=== PATIENT | female | born 1955 | race Caucasian/White ===

== ENCOUNTER 2017-11-22 05:52 | Inpatient (IN) | payer OTHER ==
[2017-11-22] VITALS (10 sets, daily range): BP systolic 11–157; BP diastolic 56–76
[~2017-11-22] VITALS: Ht 160 cm; Wt 45.4 kg
[~2017-11-22 05:52] MED LIST: ATIVAN1 MG PO; ZOFRAN ODT4 MG PO
--- NOTE | 2017-11-22 06:03 | ED GI/GU/ABDOMINAL COMPLAINT ---
See Addendum History of Present Illness General Chief Complaint: General Adult Stated Complaint: "BIBA PER EMS ANXIETY" Source: patient, old records, EMS Exam Limitations: no limitations Vital Signs & Intake/Output Vital Signs & Intake/Output Vital Signs Date Time Temp Pulse Resp B/P B/P Pulse O2 O2 Flow FiO2 Mean Ox Delivery Rate 11/22 0638 97 Room Air 11/22 0603 98.1 110 20 147/76 96 Room Air Allergies Coded Allergies: NO KNOWN ALLERGIES (06/23/14) Reconcile Medications Lorazepam (Ativan) 1 MG TAB 1 TAB PO Q6H PRN ALCOHOL WITHDRAWAL Ondansetron (Zofran Odt) 4 MG TAB.RAPDIS 1 TAB PO Q6H PRN NAUSEA Triage Nurses Notes Reviewed? yes ? N Is pt currently ? No HPI: Patient presents complaining of a panic attack. Patient states that symptoms started 2 days ago have been worsening. Patient is also having nausea and vomiting and unable to keep anything down. Patient states that she has thrown up her Lexapro over the past 2 days. Patient does drink daily but states that she only has 2 beers per day. Patient states that she has been able to keep them down. Patient states that she does have a history of panic attacks and this feels very similar to prior episodes. Patient does not feel that she is in all were drawn as the patient states that she really does not drink on that much and she has cut back dramatically over the past 2-3 years. Patient denies any chest pain or chest tightness. There is no abdominal pain. There is no diarrhea. There are no fevers or chills. Past History Travel History Traveled to [place] past 21 day No Medical History Any Pertinent Medical History? see below for history Psychiatric: anxiety, depression Surgical History Surgical History: non-contributory Psychosocial History Who do you live with Patient/Self What is your primary language Urdu Tobacco Use: Never used ETOH Use: "2 BEERS PER DAY" Illicit Drug Use: denies illicit drug use Family History Hx Contributory? No Review of Systems Review of Systems Constitutional: Reports: no symptoms. EENTM: Reports: no symptoms. Respiratory: Reports: no symptoms. Cardiovascular: Reports: no symptoms. GI: Reports: see HPI, nausea, vomiting. Genitourinary: Reports: no symptoms. Musculoskeletal: Reports: no symptoms. Skin: Reports: no symptoms. Neurological/Psychological: Reports: see HPI, anxiety. Hematologic/Endocrine: Reports: no symptoms. Immunologic/Allergic: Reports: no symptoms. All Other Systems: Reviewed and Negative Physical Exam Physical Exam General Appearance: well developed/nourished, alert, awake, anxious, moderate distress Head: atraumatic, normal appearance Eyes: Bilateral: PERRL, EOMI. Ears, Nose, Throat, Mouth: hearing grossly normal, DRY MUCUS MEMBRANES Neck: normal inspection, supple, full range of motion Respiratory: normal breath sounds, chest non-tender, no respiratory distress, lungs clear Cardiovascular: regular rate/rhythm, normal peripheral pulses Gastrointestinal: normal bowel sounds, soft, non-tender Back: normal inspection, normal range of motion Extremities: normal range of motion Neurologic/Psych: no motor/sensory deficits, awake Skin: intact, normal color, warm/dry Core Measures ACS in differential dx? No Sepsis Present: No Sepsis Focused Exam Completed? No Progress Differential Diagnosis: AMI, bowel obstruction, gastritis, hepatitis, peptic ulcer, PUD/GERD, ALCOHOL WITHDRAWAL ELECTROLYTE ABNORMALITY Plan of Care: Orders Procedure Date/time Status TROPONIN LEVEL 11/22 0603 Active MAGNESIUM 11/22 0603 Active LIPASE 11/22 0603 Active ETHANOL 11/22 0603 Active COMPREHENSIVE METABOLIC PANEL 11/22 0603 Active CBC WITHOUT DIFFERENTIAL 11/22 0603 Complete AMYLASE 11/22 0603 Active EKG 11/22 0603 Active Current Medications Sig/Dino Start time Last Medication Dose Stop Time Status Admin Sodium Chloride 1,000 ML BOLUS ONE 11/22 0615 AC 11/22 (Normal Saline 0.9%) 11/22 0714 0630 Laboratory Tests 11/22/17 0622: Sodium Pending, Potassium Pending, Chloride Pending, Carbon Dioxide Pending, Anion Gap Pending, BUN Pending, Creatinine Pending, BUN/Creatinine Ratio Pending , Glucose Pending, Calcium Pending, Magnesium Pending, Total Bilirubin Pending, AST Pending, ALT Pending, Alkaline Phosphatase Pending, Troponin I Pending, Total Protein Pending, Albumin Pending, Globulin Pending, Albumin/Globulin Ratio Pending, Amylase Pending, Lipase Pending, CBC w Diff NO MAN DIFF REQ, RBC 4.50, MCV 94.9, MCH 33.2 H, MCHC 35.0, RDW 13.2, MPV 8.6, Gran % 90.5 H, Lymphocytes % 4.2 L, Monocytes % 5.1, Eosinophils % 0.1, Basophils % 0.1, Absolute Granulocytes 9.1 H, Absolute Lymphocytes 0.4 L, Absolute Monocytes 0.5, Absolute Eosinophils 0, Absolute Basophils 0, Serum Alcohol Pending Initial ED EKG: NSR, no ST T wave changes Rhythm Strip: normal sinus rhythm Hand-Off Endorsed To: Jose Roberto Chow MD Endorsed Time: 0700 Pending: labs Departure Departure Disposition: STILL A PATIENT Condition: Stable Clinical Impression Primary Impression: Anxiety Secondary Impressions: Vomiting Referrals: He Keller MD (PCP/Family) Departure Forms: Customer Survey General Discharge Information
[2017-11-22 06:39] LABS: ABSOLUTE BASOPHIL COUNT 0 /CUMM (0.0-0.2); ABSOLUTE EOSINOPHIL COUNT 0 /CUMM (0.0-0.7); ABSOLUTE GRANULOCYTE CT 9.1 /CUMM (1.4-6.5); ABSOLUTE LYMPH COUNT 0.4 /CUMM (1.2-3.4); ABSOLUTE MONOCYTE COUNT 0.5 /CUMM (0.10-0.60); BASOPHIL % 0.1 % (0.0-2.0); EOSINOPHIL % 0.1 % (0-5); HEMATOCRIT 42.7 % (37-47); MEAN CORPUSCULAR HGB 33.2 PG (27.0-31.0); MEAN CORPUSCULAR VOLUME 94.9 FL (81.0-99.0); MEAN PLATELET VOLUME 8.6 FL (7.4-10.4); RBC DISTRIBUTION WIDTH 13.2 % (11.5-14.5); WHITE BLOOD CELL COUNT 10.1 /CUMM (4.8-10.8)
[2017-11-22 06:53] LABS: GRANULOCYTE % 90.5 % (42.2-75.2); PLATELET COUNT 157 /CUMM (130-400)
--- NOTE | 2017-11-22 17:47 | History & Physical ---
Sterling HAMLIN,[facility] 11/22/17 1239: General Information and HPI MD Statement: I have seen and personally examined JOSSELINE HILARIO and documented this H&P. The patient is a 62 year old F who presented with a patient stated chief complaint of [ALCOHOL DETOX]. Source of Information: patient Exam Limitations: no limitations History of Present Illness: Patient is 62-year-old female with past medical history of alcohol abuse disorder, anxiety, depression and hypertension. The patient presented to [place] ED earlier during the morning thinking that she is having a panic attack The patient reports drinking 6 beers per day. She also reported using whiskey gin and tonic. Last drink was early in the morning today. She consumed gin and tonic. She does not give any history of withdrawal seizures or delirium tremors ICU admission requiring Ativan drip. Patient started drinking in her early 20s. Her last admission was at [facility] where she was discharged to be care a couple of years ago. The patient lives by herself and states that she drinks because she doesn't like being lonely. Her marriage ended 6 years ago. Review of system is otherwise negative for fever or chills, shortness of breath chest pain palpitations abdominal pain or urinary symptoms. Allergies/Medications Allergies: Coded Allergies: NO KNOWN ALLERGIES (06/23/14) Home Med list Amlodipine Besylate (Norvasc) 5 MG TABLET 1 TAB PO DAILY BP (Reported) Escitalopram Oxalate (Lexapro) 20 MG TABLET 1.5 TAB PO DAILY MENTAL HEALTH ( Reported) Lorazepam (Ativan) 0.5 MG TABLET 1 TAB PO BID Detox take one pill at night and one in morning Multivitamin (One Daily Multivitamin) 1 EACH TABLET 1 TAB PO DAILY supplement . Past History Travel History Traveled to [place] past 21 day No Medical History Cardiovascular: hypertension Psychiatric: alcohol dependence, anxiety, depression Surgical History Surgical History: non-contributory Past Family/Social History Family History Relations & Conditions if any MOTHER (DM HTN). Psychosocial History Where do you live? Home Who Do You Live With? self Services at Home: None Primary Language: French Smoking Status: Current Everyday Smoker ETOH Use: alcoholic Illicit Drug Use: denies illicit drug use Functional Ability ADLs Independent: dressing, eating, toileting, bathing. Ambulation: independent IADLs Independent: shopping, housework, finances, food prep, telephone, transportation , medication admin. Review of Systems Review of Systems Constitutional: Reports: see HPI. Exam & Diagnostic Data Last 24 Hrs of Vital Signs/I&O Vital Signs Date Time Temp Pulse Resp B/P B/P Pulse O2 O2 Flow FiO2 Mean Ox Delivery Rate 11/22 1758 97.9 101 18 124/64 96 Room Air 11/22 1757 97.9 101 18 124/64 11/22 1745 98.2 100 18 127/66 95 Room Air 11/22 1541 98.4 88 18 111/72 97 Room Air 11/22 1540 98.4 88 18 11/72 11/22 1415 97.1 88 16 103/56 11/22 1215 98.2 95 20 128/63 11/22 1215 98.2 95 20 128/63 97 Room Air 11/22 1051 97 20 121/61 96 Room Air 11/22 1016 98.2 94 16 113/61 11/22 0802 99.0 124 20 157/72 11/22 0802 99.0 124 20 157/72 95 Room Air 11/22 0638 97 Room Air 11/22 0610 98.1 110 20 147/76 11/22 0603 98.1 110 20 147/76 96 Room Air Intake & Output 11/22 1600 11/22 0800 11/22 0000 Intake Total 0 Output Total Balance 0 Intake, Oral 0 Patient 99 lb 15.99 oz Weight Weight Reported by Patient Measurement Method Physical Exam General Appearance Alert, Oriented X3, Cooperative Skin JAUNDICED Neck Supple Cardiovascular Normal S1, Normal S2, No Murmurs, TACHYCARDIC Lungs Clear to Auscultation, Normal Air Movement Abdomen Normal Bowel Sounds, Soft, No Tenderness, No Hepatospenomegaly, CONSTANTINO SIGN NEGATIVE Neurological Normal Speech, NO NYSTAGMUS, TREMORULOUS Extremities No Edema Last 24 Hrs of Labs/Efrain: Laboratory Tests 11/22/17 1837: Urine Opiates Screen Pending, Methadone Screen Pending, Barbiturate Screen Pending, Ur Phencyclidine Scrn Pending, Amphetamines Screen Pending, U Benzodiazepines Scrn Pending, Urine Cocaine Screen Pending, Urine Cannabis Screen Pending 11/22/17 1833: Potassium Pending, Magnesium Pending 11/22/17 0622: Anion Gap 27 H, Estimated GFR > 60, BUN/Creatinine Ratio 5.0 L, Glucose 173 H , Calcium 9.9, Magnesium 0.8 *L, Total Bilirubin 3.1 H, AST 277 H, ALT 89 H, Alkaline Phosphatase 144 H, Troponin I < 0.01, Total Protein 8.8 H, Albumin 5.2 H, Globulin 3.6, Albumin/Globulin Ratio 1.4, Amylase 65, Lipase 102, CBC w Diff NO MAN DIFF REQ, RBC 4.50, MCV 94.9, MCH 33.2 H, MCHC 35.0, RDW 13.2, MPV 8.6, Gran % 90.5 H, Lymphocytes % 4.2 L, Monocytes % 5.1, Eosinophils % 0.1, Basophils % 0.1, Absolute Granulocytes 9.1 H, Absolute Lymphocytes 0.4 L, Absolute Monocytes 0.5, Absolute Eosinophils 0, Absolute Basophils 0, Serum Alcohol < 10.0 Assessment/Plan Assessment: This 62-year-old female with past medical history of alcohol withdrawal, depression, anxiety and hypertension She is admitted to [facility] alcohol detoxification She is currently maintained managed for following problems #Alcohol withdrawal -CIWA -IV ativan PRN -po ativan 2mg q6 -Multivitamin, folic acid, thiamine -Monitor for delirium tremens and alcohol withdrawal seizures -Psych consult Social work consult #Electrolyte abnormalities patient presented with hypokalemia and hypomagnesemia likely secondary to alcohol abuse -Monitor and replete -Repeat values of potassium 3.8 and magnesium 1.7 #Transaminitis Likely secondary to alcohol abuse Continue to monitor We will check hepatitis panel Worsening or any symptoms and we will consider right upper quadrant ultrasound #chronic medical conditions history of depression and anxiety and hypertension continue amlodipine and Lexapro #Regular diet/DVT prophylaxis with Lovenox/full code As Ranked By This Provider Problem List: 1. Alcohol withdrawal Core Measures/Misc (04/22) Acute Coronary Syndrome ACS Diagnosis: No Congestive Heart Failure Congestive Heart Failure Diagnosis No Cerebrovascular Accident CVA/TIA Diagnosis: No VTE (View Protocol) VTE Risk Factors Age>40 No Mechanical VTE Prophylaxis d/t N/A MechProphylax Ordered No VTE Pharm Prophylaxis d/t NA PharmProphylax ordered Sepsis (View protocol) Sepsis Present: No Leon HAMLIN,Luis 11/22/17 2859: Resident Review Statement Resident Statement: examined this patient, discussed with rn international, agreed with rn international Other Findings: 62 yo lady presents with pmhx of anxiety/depression,PTSD, presents to [facility] requesting [facility] detox. Last drink was last night. Normally drinks about 6 cans of beer on a daily basis. Associated symptoms include vomiting (non bloody) and weakness. Denies any SI/HI,no hx of withdrawal seizure. Pt endorses only one previous detox episode requring hospitalization at [facility] (does not remember when). She does have [facility] record on ER visit for etoh withdawal about 4 years ago, which did not resuilt in admission. Patient endorses life stressors including a very difficult divorce 6 yrs ago that gave her PTSD. Pt has 3 children, a son who is in [place] and 2 daughters in [place] who are in medical field (one is a PA, other is a DIRT BIKE RACER). I spoke to daughter Francisca (the PA) who collaborated patient account that prior to this admission, she has been admitted only once at [facility]. Daughter reports that the patient did very well with etoh abstinence after undergoing outpatient program that was referred to her after the [facility] admission. Daughter also does not remember exactly when that hospitalization happened, she states "a few years ago", neither does she remeber for how long patient remained abstinence before relapsing. Impression * Hypokalemia * Etoh withdrawal * Hypomagnesemia * Transaminitis * Hx of chronic diseases: depression/anxeity, HTN Plan Admit to [facility] Recheck BEP s/p potassium replenishment Continue CIWA protocol and prn ativan Lorazepam 2 mg q6h Thiamine/mvt/folate slow mag bid Omeprazole qd Hepatitits Panel Will trend LFTs and obtain fractionated bili. 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 She has a h/o PTSD since her divorce ( left her) about 6 yrs ago. On ER arrival, patient was nauseous, dry heaving and tremulous. She then requested for alcohol detox. Patient started drinking as a teenager, drinks about 6 beers a day, last drink was on the morning of admission. She drinks to help with her anxiety and PTSD. She lives alone. She denies h/o withdrawal seizures. Denies SI or HI. Her last detox was at [facility] a few years ago, followed by rehab at [facility]. She currently feels well after receiving ativan and zofran. She actually wants to eat at this point. She had not eaten anything for past two days as she was not able to keep anything down. No abdominal pain. She denies chest pain, dyspnea, palpitations, lightheadedness, diarrhea or urinary symptoms. Vitals stable except for tachycardia. Exam unremarkable except for dry mucosa and tremors. Labs: no leukocytosis, K 2.7 --> 3.8, AG 27, glucose 173, Ca 9.9, Mag 0.8 --> 1.7, T. Bili 3.1, AST 277, ALT 89, trop neg. Lipase normal. Urine tox neg. Alcohol <10. EKG: being read as Afib, however appears sinus rhythm with an abnormal baseline artifact due to patient being tremulous. NSR @ 95, LVH, Qtc 488. Assessment and plan: 1. Alcohol withdrawal 2. Hypomagnesemia - improving 3. Hypokalemia - improving 4. Transaminitis 2/2 alcohol use 5. Essential hypertension 6. Anxiety, PTSD - Admit to general medicine - [facility] protocol - IV ativan per [facility], PO ativan 2 mg Q6 - Banana bag then change to MVI, folic acid and thiamine PO - Replete electrolytes - Add omeprazole - Trend LFTs, check hepatitis panel - If LFT's trending up, will check RUQ ultrasound. - Continue amlodipine for hypertension - Psych consult to help manage anxiety, PTSD - Continue lexapro - Social work consult patient did well in rehab the last time - Smoking cessation counseling, nicotine patch DVT ppx Lovenox. Full code.
[2017-11-22] MEDS ORDERED: LEXAPRO20 M1 PO (18:16)
[2017-11-22] MEDS ORDERED: NORVASC5 M1 PO (18:16)
--- NOTE | 2017-11-22 19:18 | Admission Certification ---
Admission Certification Certification Statement - As attending physician, I certify that at the time of - admission, based on clinical presentation, severity of - symptoms, need for further diagnostic testing and - therapeutic interventions, and risk of adverse outcomes - without in-hospital treatment, in my clinical assessment, - this patient requires an acute hospital stay for a minimum - of two nights or longer. I have also considered psychsocial - factors such as support system, advanced age, financial - issues, cognitive issues, and failed out-patient treatments, - past re-admission history, safety of patient, and lack of - compliance as applicable. Specific rationale supporting this admission is: Alcohol withdrawal, hypomagnesemia, hypokalemia.
[2017-11-23] VITALS (12 sets, daily range): BP systolic 104–140; BP diastolic 60–90
--- NOTE | 2017-11-23 07:53 | PN- Housestaff ---
Sterling HAMLIN,Windy 11/23/17 0752: Subjective Follow-up For: Alcohol detoxification Subjective: Patient seen and examined. Resting comfortably. Offers no complaints. Continue to be tremulous. CIWA 3, 2, 2,9,2,4,10,3 on Ativan 2 mg every 6h and received 1 mg IV PRN Review of Systems Constitutional: Reports: see HPI. Objective Last 24 Hrs of Vital Signs/I&O Vital Signs Date Time Temp Pulse Resp B/P B/P Pulse O2 O2 Flow FiO2 Mean Ox Delivery Rate 11/23 1200 98.8 90 20 104/76 11/23 1143 98.0 88 20 130/60 97 Room Air 11/23 1041 98.8 90 20 104/76 11/23 0644 98.8 90 20 104/76 96 Room Air 11/23 0041 98.1 87 20 110/72 99 Room Air 11/22 2032 99.2 82 20 124/76 98 11/22 2000 99.2 82 20 124/76 11/22 1923 98.2 90 18 117/69 11/22 1921 98.2 90 18 117/69 97 Room Air 11/22 1758 97.9 101 18 124/64 96 Room Air 11/22 1757 97.9 101 18 124/64 11/22 1745 98.2 100 18 127/66 95 Room Air 11/22 1541 98.4 88 18 111/72 97 Room Air 11/22 1540 98.4 88 18 11/72 11/22 1415 97.1 88 16 103/56 Intake & Output 11/23 1600 11/23 0800 11/23 0000 Intake Total 800 Output Total 200 Balance -200 800 Intake, IV 800 Number 1 Bowel Movements Output, Urine 200 Patient 99 lb 15.99 oz Weight Weight Reported by Patient Measurement Method Physical Exam General Appearance: Alert, Oriented X3, Cooperative Skin: eyes jaundiced Lungs: Clear to Auscultation Abdomen: Normal Bowel Sounds, Soft Neurological: Normal Speech, tremors Current Medications: Current Medications Sig/Dino Start time Last Medication Dose Route Stop Time Status Admin Amlodipine Besylate 5 MG DAILY 11/23 0900 AC 11/23 PO 1041 Cyanocobalamin/ 1 BAG ONCE ONE 11/22 1930 DC 11/22 Thiamine/Pyridoxine IV 11/23 0329 2308 Dextrose/Water 1,000 ML Enoxaparin Sodium 40 MG DAILY 11/23 0900 AC 11/23 SC 1041 Escitalopram Oxalate 30 MG DAILY 11/23 0900 AC 11/23 PO 1041 Folic Acid 0 .STK-MED ONE 11/22 1819 DC PO Folic Acid 1 MG DAILY 11/22 1754 AC 11/23 PO 1042 Influenza Virus 0.5 ML ONCE ONE 11/22 2315 DC 11/22 Vaccine IM 11/22 2316 2327 Lorazepam 2 MG Q6 11/22 2359 AC 11/23 PO 1133 Lorazepam 0 Q1P PRN 11/22 1930 AC 11/23 IV 1306 Lorazepam 0 .STK-MED ONE 11/22 181 DC PO Lorazepam 0 .STK-MED ONE 11/22 1808 DC .ROUTE Lorazepam 2 MG Q4 11/22 1800 DC 11/22 PO 1825 Lorazepam 0 Q1P PRN 11/22 1800 DC IV Lorazepam 1 MG Q2 PRN 11/22 0915 DC 11/22 IV 1807 Lorazepam 2 MG Q2 PRN 11/22 0915 DC 11/22 IV 1237 Magnesium Chloride 64 MG BID 11/22 2100 AC PO Multivitamins 0 .STK-MED ONE 11/22 1819 DC PO Multivitamins 1 TAB DAILY 11/22 1753 AC 11/23 PO 1041 Omeprazole 40 MG DAILY AC 11/23 0700 AC 11/23 PO 0550 Ondansetron HCl 4 MG Q6P PRN 11/22 1800 AC IV Potassium Chloride 0 .STK-MED ONE 11/22 1755 DC IV Potassium Chloride 10 MEQ ONCE ONE 11/22 1730 DC 11/22 IV 11/22 173 1757 Thiamine HCl 0 .STK-MED ONE 11/22 1819 DC PO Thiamine HCl 100 MG DAILY 11/22 1753 AC 11/23 PO 1041 Last 24 Hrs of Lab/Efrain Results Last 24 Hrs of Labs/Mics: Laboratory Tests 11/22/17 183: Urine Opiates Screen < 100, Methadone Screen < 40, Barbiturate Screen < 60, Ur Phencyclidine Scrn < 6.00, Amphetamines Screen < 100, U Benzodiazepines Scrn < 85, Urine Cocaine Screen < 50, Urine Cannabis Screen < 5.00 11/22/17 183: Magnesium 1.7, Total Bilirubin 2.7 H, Direct Bilirubin 1.5 H, AST 225 H, ALT 77 H, Alkaline Phosphatase 102, Total Protein 6.6, Albumin 3.4 L Assessment/Plan Assessment: This 62-year-old female with past medical history of alcohol withdrawal, depression, anxiety and hypertension She is admitted to [facility] for alcohol detoxification She is currently maintained managed for following problems #Alcohol withdrawal -CIWA -IV ativan PRN -po ativan 2mg q8 today -Multivitamin, folic acid, thiamine -Monitor for delirium tremens and alcohol withdrawal seizures -Psych consult -Social work consult #Electrolyte abnormalities patient presented with hypokalemia and hypomagnesemia likely secondary to alcohol abuse -Monitor and replete #Transaminitis Likely secondary to alcohol abuse -Continue to monitor -We will check hepatitis panel -Worsening or any symptoms and we will consider right upper quadrant ultrasound #chronic medical conditions history of depression and anxiety and hypertension continue amlodipine and Lexapro #Regular diet/DVT prophylaxis with Lovenox/full code Problem List: 1. Alcohol withdrawal Pain Ratin Pain Location: n/a Pain Goal: Pain 4 or less Pain Plan: prn Tomorrow's Labs & Rationales: Popeye Husain MD 11/23/17 1140: Attending MD Review Statement Attending Statement Attending MD Statement: examined this patient, discuss w/resident/PA/RN L AND D, agreed w/resident/PA/RN L AND D, discussed with family, discussed with nursing, discussed with case mgmt Attending Assessment/Plan: 62 yo F smoker, with h/o alcohol dependence, anxiety, depression, HTN, initially presented to the ER for an anxiety attack. She has a h/o PTSD since her divorce ( left her) about 6 yrs ago. On ER arrival, patient was nauseous, dry heaving and tremulous. She is being treated for alcohol detoxification. On examination today, patient is awake, alert and in no distress. Vital signs are stable Patient was last admitted for detox a year ago - she is will to undergo IOP and ready to quit drinking as she clearly understands that this is a problem Assessment and plan: 1. Alcohol withdrawal 2. Hypomagnesemia and hypokalemia - resolving 4. Transaminitis 2/2 alcohol use 5. Essential hypertension 6. Anxiety, PTSD Will decrease and taper PO ativan Will follow up on Hepatitis panel Psych and social work consult Patient was last admitted for detox a year ago - she is will to undergo IOP and ready to quit drinking as she clearly understands that this is a problem
[2017-11-23 15:13] LABS: ABSOLUTE BASOPHIL COUNT 0 /CUMM (0.0-0.2); ABSOLUTE EOSINOPHIL COUNT 0.1 /CUMM (0.0-0.7); ABSOLUTE GRANULOCYTE CT 6.1 /CUMM (1.4-6.5); ABSOLUTE LYMPH COUNT 0.8 /CUMM (1.2-3.4); ABSOLUTE MONOCYTE COUNT 0.6 /CUMM (0.10-0.60); BASOPHIL % 0.1 % (0.0-2.0); EOSINOPHIL % 0.8 % (0-5); GRANULOCYTE % 81.1 % (42.2-75.2); HEMATOCRIT 38.6 % (37-47); MEAN CORPUSCULAR HGB 32.8 PG (27.0-31.0); MEAN CORPUSCULAR HGB CONC 34.6 G/DL (33.0-37.0); MEAN CORPUSCULAR VOLUME 94.6 FL (81.0-99.0); MEAN PLATELET VOLUME 8.5 FL (7.4-10.4); PLATELET COUNT 132 /CUMM (130-400); RBC DISTRIBUTION WIDTH 12.4 % (11.5-14.5); RED BLOOD CELL CT 4.08 /CUMM (4.20-5.40); WHITE BLOOD CELL COUNT 7.6 /CUMM (4.8-10.8)
[2017-11-23] MEDS ORDERED: ONE DAILY MULT1 EAC2 PO (17:03)
--- NOTE | 2017-11-23 17:04 | Patient Discharge Instructions ---
Discharge Instructions General Discharge Information You were seen/treated for: Alcohol detox Special Instructions: Please follow-up with your primary care after discharge Please follow-up with jenna [facility] after Discharge call to make an appointment Diet Continue normal diet: Yes Activity Activity Self Limited: Yes Acute Coronary Syndrome Inclusion Criteria At DC or during hospital stay patient has or had the following: ACS DIAGNOSIS No Discharge Core Measures Meds if any: Prescribed or Continued at Discharge Meds if any: NOT Prescribed or Continued at Discharge Congestive Heart Failure Inclusion Criteria At DC or during hospital stay patient has or had the following: CHF DIAGNOSIS No Discharge Core Measures Meds if any: Prescribed or Continued at Discharge Meds if any: NOT Prescribed or Continued at Discharge Cerebrovascular accident Inclusion Criteria At DC or during hospital stay patient has or had the following: CVA/TIA Diagnosis No Discharge Core Measures Meds if any: Prescribed or Continued at Discharge Meds if any: NOT Prescribed or Continued at Discharge Venous thromboembolism Inclusion Criteria VTE Diagnosis No VTE Type NONE VTE Confirmed by (Test) NONE Discharge Core Measures - Per Current guidelines, there needs to be overlap - treatment for the first 5 days of Warfarin therapy. - If discharged on Warfarin prior to 5 days of - overlap therapy, the patient will need to be - assessed for post discharge needs including - *Post discharge parental anticoagulation - *Warfarin and/or parental anticoagulation education - *Follow up date to check INR post discharge At least 5 days overlap therapy as Inpatient No Meds if any: Prescribed or Continued at Discharge Note: Overlap Therapy is Warfarin and Anticoagulant Meds if any: NOT Prescribed or Continued at Discharge
--- NOTE | 2017-11-23 17:22 | Cons- Psychiatry ---
Psychiatric Consult Date of Consult: 11/23/17 Reason for Consult: "anxiety" History of Present Illness: 62 y.o. , domiciled female [place] from home 11/22/17 @ 0604 with a CC of anxiety attack. She was admitted for alcohol withdrawal, transaminitis, hypokalemia and hypomagnesemia secondary to alcohol abuse and her report of N/V for 2 days. Her last drink was in the fast brim pouncer today [Serum ETOH shows < 10 ] She denies history of seizure, but states that she had delirium tremens in 2011, after her spouse left her. She drinks 6-7 beers daily, and some amount of whiskey. She reports that the amount can vary to as little as two drinks per day. She had been sober for an undetermined amount of time, participating in [facility] trauma, family and women's groups, and attending two AA meetings per week. She does not have a sponsor. She relapsed after an encounter with her ex-'s girlfriend at [facility], hosted by the patient's daughter. The event included an argument. The ex- told her 6 years ago, shortly after their daughter's wedding, that he was leaving, which devastated her. She lives alone, has two daughters who live in [place], and a son in the [employer], who lives at [place], [place]. The patient's PCP, Dr. Raj Salazar follows her for escitalopram 30 mg PO daily FPHx: Her mother had depression, unknown medication. Allergies: Coded Allergies: NO KNOWN ALLERGIES (06/23/14) Current Medications: Current Medications Sig/Dino Start time Last Medication Dose Route Stop Time Status Admin Amlodipine Besylate 5 MG DAILY 11/23 09 AC 11/23 PO 1041 Cyanocobalamin/ 1 BAG ONCE ONE 11/22 1930 DC 11/22 Thiamine/Pyridoxine IV 11/23 4752 2308 Dextrose/Water 1,000 ML Enoxaparin Sodium 40 MG DAILY 11/23 899 AC 11/23 SC 1041 Escitalopram Oxalate 30 MG DAILY 11/23 09 AC 11/23 PO 1041 Folic Acid 0 .STK-MED ONE 11/22 1819 DC PO Folic Acid 1 MG DAILY 11/22 1754 AC 11/23 PO 1042 Influenza Virus 0.5 ML ONCE ONE 11/22 2315 DC 11/22 Vaccine IM 11/22 2316 2327 Lorazepam 2 MG Q8 11/23 2200 AC PO Lorazepam 2 MG Q6 11/22 2359 DC 11/23 PO 1133 Lorazepam 0 Q1P PRN 11/22 1930 AC 11/23 IV 1306 Lorazepam 0 .STK-MED ONE 11/22 1819 DC PO Lorazepam 0 .STK-MED ONE 11/22 1808 DC .ROUTE Lorazepam 2 MG Q4 11/22 1800 DC 11/22 PO 1825 Lorazepam 0 Q1P PRN 11/22 1800 DC IV Lorazepam 1 MG Q2 PRN 11/22 0915 DC 11/22 IV 1807 Lorazepam 2 MG Q2 PRN 11/22 0915 DC 11/22 IV 1237 Magnesium Chloride 64 MG BID 11/22 2100 DC PO Magnesium Sulfate 1 GM ONCE ONE 11/23 1400 AC Dextrose/Water 100 ML IV 11/23 1759 Multivitamins 0 .STK-MED ONE 11/22 1819 DC PO Multivitamins 1 TAB DAILY 11/22 1753 AC 11/23 PO 1041 Omeprazole 40 MG DAILY AC 11/23 0700 AC 11/23 PO 0550 Ondansetron HCl 4 MG Q6P PRN 11/22 1800 AC IV Patient Medication 1 ED ONE ONE 11/23 1715 DC Teaching ED 11/23 1716 Potassium Chloride 40 MEQ ONCE ONE 11/23 1630 DC PO 11/23 1631 Potassium Chloride 40 MEQ ONCE ONE 11/23 1400 DC PO 11/23 1401 Potassium Chloride 0 .STK-MED ONE 11/22 1755 DC IV Potassium Chloride 10 MEQ ONCE ONE 11/22 1730 DC 11/22 IV 11/22 1731 1757 Thiamine HCl 0 .STK-MED ONE 11/22 1819 DC PO Thiamine HCl 100 MG DAILY 11/22 1753 AC 11/23 PO 1041 Past History Past Medical History Neurological: NONE EENT: EAR INFECTION Cardiovascular: hypertension Respiratory: NONE Gastrointestinal: NONE Hepatic: NONE Renal: NONE Musculoskeletal: NONE Psychiatric: alcohol dependence, anxiety, depression, Adjustment disorder Endocrine: NONE Blood Disorders: NONE Cancer(s): NONE IT TECHNICAL SUPPORT SPECIALIST/Reproductive: NONE Past Surgical History Surgical History: non-contributory Psychosocial History Strengths/Capabilities: The patient reports she is motivated for treatment Physical Limitations (Interventions): Unknown Psychiatric Treatment History Psych Treatment Psychiatric Treatment Yes Inpatient Treatment No Diagnosis: Anxiety Disorder NOS Risk Factors: substance abuse, lives alone Substance Use/Abuse History Drug Use/Abuse Substances Used/Abused Yes Substance Used/Abused Alcohol First Use The patient states 10 y.o, then 6 y.o., but other reports state in 20s How much used/taken 6-7 beers, and UNK amt whiskey How often Daily For how long Relapse on November 04, 2017 Substance Abuse Treatment Substance Abuse Treatment Past Substance Abuse TX Yes Inpatient Treatment No Outpatient Treatment Yes Location of Treatment [facility] Reason for Treatment Alcohol use d/o Dates of Treatment UNknown Response to Treatment Pt reports improvement Assessment/Plan Mental Status Orientation: Confused Affect: Constricted, Sad Speech: Increased Latency Neuro-vegetative: Energy Increased, Helpless, Sleep Disturbance Mental Status Exam: Drowsy sitting up in bed, occasional eye contact, oriented to person, place, date, year, repeatedly interprets question about day for date. The month is December or November, day is Sunday. She denies VH, TH and AH, and is confused about when she started drinking, stating 10 y.o, then that she stopped drinking for grade school, then stating that she started drinking at 6 y.o. Asked if she meant 9th grade, she insists on 10 y.o. She reported that she only takes Klonipin, prescribed by Dr. Rothman, whose name she had difficulty recalling. She has no recent record in the [facility] report. Her Lexapro 30 mg PO daily is prescribed by her PCP, Dr. Raj Salazar. She denies SI, HI and denies any history of suicide attempt. She endorses each of hopelessness, helplessness, worthlessness, "sometime." She endorses guilty feelings. She reports she had received treatment at [facility], mostly in groupsm "We had fun. They even had some men there." Scales anxiety as 10/10; 10 is the worst. Depression: "A lot" Denies seizure history Reports she had an ICU alcohol detox in [facility] with an Ativan drip and had DTs. Lab Results: Laboratory Tests 11/23 11/23 11/22 1450 1450 1837 Chemistry Sodium (137 - 145 mmol/L) 134 L Potassium (3.5 - 5.1 mmol/L) 3.1 L Chloride (98 - 107 mmol/L) 92 L Carbon Dioxide (22 - 30 mmol/L) 29 Anion Gap (5 - 16) 14 BUN (7 - 17 mg/dL) 4 L Creatinine (0.5 - 1.0 mg/dL) 0.4 L Estimated GFR (>60 ml/min) > 60 BUN/Creatinine Ratio (7 - 25 %) 10.0 Total Bilirubin (0.2 - 1.3 mg/dL) 3.1 H Direct Bilirubin (< 0.4 mg/dL) 1.8 H AST (14 - 36 U/L) 226 H ALT (9 - 52 U/L) 81 H Alkaline Phosphatase (<127 U/L) 126 Total Protein (6.3 - 8.2 g/dL) 7.3 Albumin (3.5 - 5.0 g/dL) 4.1 Hematology CBC w Diff NO MAN DIFF REQ WBC (4.8 - 10.8 /CUMM) 7.6 RBC (4.20 - 5.40 /CUMM) 4.08 L Hgb (12.0 - 16.0 G/DL) 13.4 Hct (37 - 47 %) 38.6 MCV (81.0 - 99.0 FL) 94.6 MCH (27.0 - 31.0 PG) 32.8 H MCHC (33.0 - 37.0 G/DL) 34.6 RDW (11.5 - 14.5 %) 12.4 Plt Count (130 - 400 /CUMM) 132 MPV (7.4 - 10.4 FL) 8.5 Gran % (42.2 - 75.2 %) 81.1 H Lymphocytes % (20.5 - 51.1 %) 10.5 L Monocytes % (1.7 - 9.3 %) 7.5 Eosinophils % (0 - 5 %) 0.8 Basophils % (0.0 - 2.0 %) 0.1 Absolute Granulocytes (1.4 - 6.5 /CUMM) 6.1 Absolute Lymphocytes (1.2 - 3.4 /CUMM) 0.8 L Absolute Monocytes (0.10 - 0.60 /CUMM) 0.6 Absolute Eosinophils (0.0 - 0.7 /CUMM) 0.1 Absolute Basophils (0.0 - 0.2 /CUMM) 0 Serology Hepatitis A IgM Ab (NONREACTIVE) Cancelled Pending Hep Bs Antigen (NONREACTIVE) Cancelled Pending Hep B Core IgM Ab Conf (NONREACTIVE) Cancelled Pending Hepatitis C Antibody (NONREACTIVE) Cancelled Pending Toxicology Urine Opiates Screen (>2000 NG/ML) < 100 Methadone Screen (>300 NG/ML) < 40 Barbiturate Screen (>200 NG/ML) < 60 Ur Phencyclidine Scrn (>25 NG/ML) < 6.00 Amphetamines Screen (>1000 NG/ML) < 100 U Benzodiazepines Scrn (>200 NG/ML) < 85 Urine Cocaine Screen (>300 NG/ML) < 50 Urine Cannabis Screen (>50 NG/ML) < 5.00 11/22 11/22 1833 0622 Chemistry Sodium (137 - 145 mmol/L) 138 Potassium (3.5 - 5.1 mmol/L) 3.8 2.7 *L Chloride (98 - 107 mmol/L) 88 L Carbon Dioxide (22 - 30 mmol/L) 23 Anion Gap (5 - 16) 27 H BUN (7 - 17 mg/dL) 3 L Creatinine (0.5 - 1.0 mg/dL) 0.6 Estimated GFR (>60 ml/min) > 60 BUN/Creatinine Ratio (7 - 25 %) 5.0 L Glucose (65 - 99 mg/dL) 173 H Calcium (8.4 - 10.2 mg/dL) 9.9 Magnesium (1.6 - 2.3 mg/dL) 1.7 0.8 *L Total Bilirubin (0.2 - 1.3 mg/dL) 2.7 H 3.1 H Direct Bilirubin (< 0.4 mg/dL) 1.5 H AST (14 - 36 U/L) 225 H 277 H ALT (9 - 52 U/L) 77 H 89 H Alkaline Phosphatase (<127 U/L) 102 144 H Troponin I (< 0.11 ng/ml) < 0.01 Total Protein (6.3 - 8.2 g/dL) 6.6 8.8 H Albumin (3.5 - 5.0 g/dL) 3.4 L 5.2 H Globulin (1.9 - 4.2 gm/dL) 3.6 Albumin/Globulin Ratio (1.1 - 2.2 %) 1.4 Amylase (30 - 110 U/L) 65 Lipase (23 - 300 U/L) 102 Hematology CBC w Diff NO MAN DIFF REQ WBC (4.8 - 10.8 /CUMM) 10.1 RBC (4.20 - 5.40 /CUMM) 4.50 Hgb (12.0 - 16.0 G/DL) 15.0 Hct (37 - 47 %) 42.7 MCV (81.0 - 99.0 FL) 94.9 MCH (27.0 - 31.0 PG) 33.2 H MCHC (33.0 - 37.0 G/DL) 35.0 RDW (11.5 - 14.5 %) 13.2 Plt Count (130 - 400 /CUMM) 157 MPV (7.4 - 10.4 FL) 8.6 Gran % (42.2 - 75.2 %) 90.5 H Lymphocytes % (20.5 - 51.1 %) 4.2 L Monocytes % (1.7 - 9.3 %) 5.1 Eosinophils % (0 - 5 %) 0.1 Basophils % (0.0 - 2.0 %) 0.1 Absolute Granulocytes (1.4 - 6.5 /CUMM) 9.1 H Absolute Lymphocytes (1.2 - 3.4 /CUMM) 0.4 L Absolute Monocytes (0.10 - 0.60 /CUMM) 0.5 Absolute Eosinophils (0.0 - 0.7 /CUMM) 0 Absolute Basophils (0.0 - 0.2 /CUMM) 0 Toxicology Serum Alcohol (<10 MG/DL) < 10.0 Diffential Diagnosis: Alcohol use disorder, recurrent, severe Substance-induced mood disorder, R/O underlying anxiety d/o, unspecified Adjustment disorder, R/O PTSD Impression: The patient is at the beginning of her alcohol withdrawal, and reductions in the lorazepam taper are likely premature, given her worsening presentation during the day today. I will restart the ETOH Detox protocol, and we suggest that this be evaluated daily for worsening presentation, which may require an increase in lorazepam. She also has a history of an alcohol detox in an ICU, and claims she was on an Ativan drip with delirium tremens. She denies any history of seizure. If you have questions about the detox protocol, please contact the collections analyst psychiatrist over the weekend through the Crisis office [phone], or on [facility] [phone]. The patient will require at least an Intensive Outpatient Program, and may benefit from a residential rehab. She has no resilience to perturbations in her environment, the [facility] break-down is an example. Her insight and judgement are poor. She would benefit from individual and group therapy and close following for medications. She perseverates on wanting to start Ativan, which "shuts my brain off at night." Trazodone did not shut her brain off. She reports that "Prozac made me fat," but cannopt recall the other medication she started at the same time. She also cannot recall when this happened. The patient reports Provisional Treatment Plan: 1. Alcohol detox protocol, including scheduled and 'as needed' lorazepam. Hold scheduled lorazepam for oversedation or respiratory depression. Daily thiamine, folate and MVI. 2. Social work consult for aftercare planning 3. I will hold the Lexapro for now, as the patient's labs reflect hyponatremia. 4. I have ordered TSH, folic acid and vitamin B12. We will continue to follow along with you. Thank you for this consult. Addendum Addendum In the order sets as: 'ETOH Detox' Proposed Alcohol Detox Order Set Combining 120 Hour (5 Day) Standing Ativan Taper With CIWA-Triggered PRN Ativan Vital Signs and CIWA q 2 hours x 24 hours then q 4 hours (increase Vital Signs and CIWA scoring back to q 2 hours if CIWA scores >8). Thiamine 100 mg po daily x 3 days, 1st dose now. Folate 1 mg po daily x 3 days, 1st dose now. Multivitamin 1 po daily, 1st dose now. Standing Taper (Hold for Over-sedation or Respiratory Depression, But DO NOT HOLD FOR SLEEP): First 24 hours (Total Standing Ativan 8 mg) Ativan 2 mg PO/IV at time 0 Ativan 2 mg PO/IV at time 6 hours Ativan 2 mg PO/IV at time 12 hours Ativan 2 mg PO/IV at time 18 hours Second 24 hours (Total Standing Ativan 6.5 mg) Ativan 1.5 mg PO/IV at time 0 Ativan 2 mg PO/IV at time 6 hours Ativan 1.5 mg PO/IV at time 12 hours Ativan 1.5 mg PO/IV at time 18 hours Third 24 hours (Total Standing Ativan 5 mg) Ativan 1 mg PO/IV at time 0 Ativan 1.5 mg PO/IV at time 6 hours Ativan 1 mg PO/IV at time 12 hours Ativan 1.5 mg PO/IV at time 18 hours Fourth 24 hours (Total Standing Ativan 3.5 mg) Ativan 1 mg PO/IV at time 0 Ativan 1 mg PO/IV at time 6 hours Ativan 0.5 mg PO/IV at time 12 hours Ativan 1 mg PO/IV at time 18 hours Fifth 24 hours (Total Standing Ativan 2 mg) Ativan 0.5 mg PO/IV at time 0 Ativan 0.5 mg PO/IV at time 6 hours Ativan 0.5 mg PO/IV at time 12 hours Ativan 0.5 mg PO/IV at time 18 hours Sixth 24 hours (Total Standing Ativan 0.5 mg) Ativan 0.5 mg PO/IV at time 0 CIWA-Triggered PRN Ativan Ativan 2 mg PO/IV q 2 hours prn CIWA 12+ or Pulse 111+. Ativan 1 mg PO/IV q 2 hours prn CIWA 8-11 or Pulse 100-110.
[2017-11-24] VITALS (10 sets, daily range): BP systolic 98–130; BP diastolic 60–80
--- NOTE | 2017-11-24 08:58 | PN- Housestaff ---
Subjective Follow-up For: Alcohol detoxification Subjective: Patient visited today, was sleeping in bed comfortably in no acute distress, No fever or chills, no shortness of breathing, no chest pain, no other events. Review of Systems Constitutional: Reports: see HPI. Objective Last 24 Hrs of Vital Signs/I&O Vital Signs Date Time Temp Pulse Resp B/P B/P Pulse O2 O2 Flow FiO2 Mean Ox Delivery Rate 11/24 1402 98.9 107 16 120/60 96 11/24 1103 99.4 97 16 130/60 96 11/24 0916 110 126/62 11/24 0600 98.0 96 16 122/64 98 Room Air 11/24 0200 98.0 96 16 124/62 98 Room Air 11/23 2316 98.6 100 16 140/82 98 Room Air 11/23 1917 97.9 98 18 120/60 98 Room Air 11/23 1800 99.0 100 20 138/90 11/23 1600 9.0 100 20 138/90 Intake & Output 11/24 1600 11/24 0800 11/24 0000 Intake Total 200 300 Output Total 200 200 Balance -200 200 100 Intake, IV 100 Intake, Oral 200 200 Output, Urine 200 200 Physical Exam General Appearance: No Acute Distress, Sleeping Skin Temp/Moisture Exam: Warm/Dry Sepsis Skin Exam (color): Normal for Ethnicity HEENT: Atraumatic Cardiovascular: Regular Rate, Normal S1, Normal S2 Lungs: Normal Air Movement Extremities: No Edema Current Medications: Current Medications Sig/Dino Start time Last Medication Dose Route Stop Time Status Admin Amlodipine Besylate 5 MG DAILY 11/23 09 AC 11/24 PO 0916 Enoxaparin Sodium 40 MG DAILY 11/23 0900 AC 11/24 SC 0909 Escitalopram Oxalate 30 MG DAILY 11/23 0900 DC 11/23 PO 1041 Folic Acid 1 MG DAILY 11/22 1754 AC 11/24 PO 0909 Lorazepam 0.5 MG ONCE 11/28 0000 AC PO 11/28 0001 Lorazepam 0.5 MG Q6H 11/27 0000 AC PO 11/27 1801 Lorazepam 0.5 MG ONCE ONE 11/26 1800 AC PO 11/26 1801 Lorazepam 1 MG Q6H 11/26 0000 AC PO 11/26 1201 Lorazepam 1.5 MG Q12H 11/25 0600 AC PO 11/25 1801 Lorazepam 1 MG Q12H 11/25 0000 AC PO 11/25 1201 Lorazepam 1.5 MG Q6 11/24 0600 AC 11/24 PO 11/24 1801 1210 Lorazepam 2 MG Q6 11/23 2359 DC 11/23 PO 11/24 0001 2318 Lorazepam 2 MG Q8 11/23 2200 CAN PO Lorazepam 0 Q1P PRN 11/22 1930 AC 11/23 IV 1306 Magnesium Sulfate 1 GM ONCE ONE 11/23 1400 DC 11/23 Dextrose/Water 100 ML IV 11/23 1759 1746 Multivitamins 1 TAB DAILY 11/22 1753 AC 11/24 PO 0909 Omeprazole 40 MG DAILY AC 11/23 0700 AC 11/24 PO 0523 Ondansetron HCl 4 MG Q6P PRN 11/22 1800 AC IV Patient Medication 1 ED ONE ONE 11/23 1715 DC Teaching ED 11/23 1716 Potassium Chloride 40 MEQ ONCE ONE 11/24 1515 DC PO 11/24 1516 Potassium Chloride 40 MEQ ONCE ONE 11/23 2030 DC 11/23 PO 11/23 Potassium Chloride 40 MEQ ONCE ONE 11/23 1630 DC 11/23 PO 11/23 1631 1746 Thiamine HCl 100 MG DAILY 11/22 1753 AC 11/24 PO 0909 Last 24 Hrs of Lab/Efrain Results Last 24 Hrs of Labs/Mics: Laboratory Tests 11/24/17 0735: Anion Gap 12, Estimated GFR > 60, BUN/Creatinine Ratio 17.5, Magnesium 1.6, Vitamin B12 702, Folate 8.6 11/23/17 1818: TSH Cancelled Assessment/Plan Assessment: This 62-year-old female with past medical history of alcohol withdrawal, depression, anxiety and hypertension She is admitted to [facility] for alcohol detoxification She is currently maintained managed for following problems #Alcohol withdrawal -CIWA 0-9 -IV ativan PRN -Taper po ativan accordingly -Multivitamin, folic acid, thiamine -Monitor for delirium tremens and alcohol withdrawal seizures -Psych consult -Social work consult #Electrolyte abnormalities patient presented with hypokalemia and hypomagnesemia likely secondary to alcohol abuse -Monitor and replete #Transaminitis Likely secondary to alcohol abuse -Continue to monitor -We will check hepatitis panel -Worsening or any symptoms and we will consider right upper quadrant ultrasound #chronic medical conditions history of depression and anxiety and hypertension continue amlodipine and Lexapro #Regular diet/DVT prophylaxis with Lovenox/full code Problem List: 1. Alcohol withdrawal Pain Ratin Pain Location: None Pain Goal: Pain 4 or less Pain Plan: Continue current plan Tomorrow's Labs & Rationales: CBC BEP
--- NOTE | 2017-11-24 15:08 | PN- Att Addend ---
Attending Addendum Attending Brief Note Patient seen and examined, she claims that she is feeling overall better. His CIWA scores are running low. Vital Signs Date Time Temp Pulse Resp B/P B/P Pulse O2 O2 Flow FiO2 Mean Ox Delivery Rate 11/24 1402 98.9 107 16 120/60 96 11/24 1103 99.4 97 16 130/60 96 11/24 0916 110 126/62 11/24 0600 98.0 96 16 122/64 98 Room Air 11/24 0200 98.0 96 16 124/62 98 Room Air 11/23 2316 98.6 100 16 140/82 98 Room Air 11/23 1917 97.9 98 18 120/60 98 Room Air 11/23 1800 99.0 100 20 138/90 11/23 1600 9.0 100 20 138/90 on exam; aox3, nad. cv; s1,s2, rrr resp; clear abd; soft, nt, bs+ ext; no edema Laboratory Tests 11/24 11/23 0735 1818 Chemistry Sodium (137 - 145 mmol/L) 136 L Potassium (3.5 - 5.1 mmol/L) 3.3 L Chloride (98 - 107 mmol/L) 94 L Carbon Dioxide (22 - 30 mmol/L) 30 Anion Gap (5 - 16) 12 BUN (7 - 17 mg/dL) 7 Creatinine (0.5 - 1.0 mg/dL) 0.4 L Estimated GFR (>60 ml/min) > 60 BUN/Creatinine Ratio (7 - 25 %) 17.5 Magnesium (1.6 - 2.3 mg/dL) 1.6 Vitamin B12 (239 - 931 pg/mL) 702 Folate (2.76 - 20.0 ng/mL) 8.6 TSH Cancelled A/P; 62 y/o F with pmh sig for alcohol dependence, anxiety, depression, HTN, initially presented to the ER for an anxiety attack. She has a h/o PTSD since her divorce ( left her) about 6 yrs ago, admitted with acute alcohol intox, needing detox, electrolyte abnormalities. Continue Ativan taper per protocol. Completely yvrose potassium. I have ordered KDur. Continue other medications. Patient on Lovenox for DVT prophylaxis.
[2017-11-25] VITALS (12 sets, daily range): BP systolic 106–136; BP diastolic 60–80
--- NOTE | 2017-11-25 07:34 | PN- Housestaff ---
Angie Conrad MD,[facility] 11/25/17 0734: Subjective Follow-up For: Alcohol detoxification Subjective: Patient visited today, was sleeping in bed comfortably in no acute distress, No fever or chills, no shortness of breathing, no chest pain, no other events. CIWA 0-3 Review of Systems Constitutional: Reports: see HPI. Objective Last 24 Hrs of Vital Signs/I&O Vital Signs Date Time Temp Pulse Resp B/P B/P Pulse O2 O2 Flow FiO2 Mean Ox Delivery Rate 11/25 0949 99.2 95 18 120/80 97 11/25 0822 92 136/68 11/25 0800 92 16 136/68 11/25 0620 99.5 96 18 132/78 98 Room Air 11/25 0600 99.5 96 18 132/78 11/25 0400 97.2 86 18 108/72 11/25 0202 97.6 86 16 108/72 95 Room Air 11/25 0200 97.2 86 16 106/72 11/25 0000 98.8 82 18 130/80 11/24 2230 98.8 11/24 2200 98.8 82 18 130/80 11/24 2200 100.0 82 18 130/80 97 Room Air 11/24 1800 99.8 90 18 98/70 95 Room Air 11/24 1402 98.9 107 16 120/60 96 11/24 1400 98.9 107 16 120/60 11/24 1103 99.4 97 16 130/60 96 Intake & Output 11/25 1600 11/25 0800 11/25 0000 Intake Total 360 460 Output Total 800 100 Balance -440 360 Intake, Oral 360 460 Number 0 Bowel Movements Output, Urine 800 100 Physical Exam General Appearance: No Acute Distress, Sleeping Sepsis Skin Exam (color): Normal for Ethnicity HEENT: Atraumatic, EOMI Cardiovascular: Normal S1, Normal S2 Lungs: Clear to Auscultation, Normal Air Movement Abdomen: Soft, No Tenderness Current Medications: Current Medications Sig/Dino Start time Last Medication Dose Route Stop Time Status Admin Amlodipine Besylate 5 MG DAILY 11/23 09 AC 11/25 PO 0822 Enoxaparin Sodium 40 MG DAILY 11/23 0900 AC 11/25 SC 0830 Folic Acid 1 MG DAILY 11/22 1754 AC 11/25 PO 0822 Lorazepam 0.5 MG ONCE 04/25 0000 AC PO 11/28 0001 Lorazepam 0.5 MG Q6H 11/27 0000 AC PO 11/27 1801 Lorazepam 0.5 MG ONCE ONE 11/26 1800 AC PO 11/26 1801 Lorazepam 1 MG Q6H 11/26 0000 AC PO 11/26 1201 Lorazepam 1.5 MG Q12H 11/25 0600 AC 11/25 PO 11/25 1801 0558 Lorazepam 1 MG Q12H 11/25 0000 AC 11/24 PO 11/25 1201 2331 Lorazepam 1.5 MG Q6 11/24 0600 DC 11/24 PO 11/24 1801 1721 Lorazepam 0 Q1P PRN 11/22 1930 AC 11/23 IV 1306 Multivitamins 1 TAB DAILY 11/22 1753 AC 11/25 PO 0822 Omeprazole 40 MG DAILY AC 11/23 0700 AC 11/25 PO 0558 Ondansetron HCl 4 MG Q6P PRN 11/22 1800 AC IV Potassium Chloride 40 MEQ ONCE ONE 11/24 1600 DC 11/24 PO 11/24 1601 1644 Potassium Chloride 40 MEQ ONCE ONE 11/24 1515 DC 11/24 PO 11/24 1516 1640 Thiamine HCl 100 MG DAILY 11/22 1753 AC 11/25 PO 0822 Last 24 Hrs of Lab/Efrain Results Last 24 Hrs of Labs/Mics: Laboratory Tests 11/25/17 0907: Anion Gap 14, Estimated GFR > 60, BUN/Creatinine Ratio 27.5 H Assessment/Plan Assessment: This 62-year-old female with past medical history of alcohol withdrawal, depression, anxiety and hypertension She is admitted to [facility] for alcohol detoxification She is currently maintained managed for following problems #Alcohol withdrawal -CIWA 0-3 -IV ativan PRN -Taper po ativan accordingly -Multivitamin, folic acid, thiamine -Monitor for delirium tremens and alcohol withdrawal seizures -Psych consult -Social work consult #Electrolyte abnormalities patient presented with hypokalemia and hypomagnesemia likely secondary to alcohol abuse -Monitor and replete #Transaminitis Likely secondary to alcohol abuse -Continue to monitor -Hepatitis panel Negative -Worsening or any symptoms and we will consider right upper quadrant ultrasound #chronic medical conditions history of depression and anxiety and hypertension continue amlodipine and Lexapro #Regular diet/DVT prophylaxis with Lovenox/full code Problem List: 1. Alcohol withdrawal Pain Ratin Pain Location: None Pain Goal: Pain 4 or less Pain Plan: Conitnue current plan Tomorrow's Labs & Rationales: None Lorena House MD 11/25/17 1220: Attending MD Review Statement Attending Statement Attending MD Statement: examined this patient, discuss w/resident/PA/PLACEMENT ASSISTANT, agreed w/resident/PA/PLACEMENT ASSISTANT, reviewed EMR data (avail), discussed with nursing, discussed with case mgmt, reviewed images, amended to note Attending Assessment/Plan: Patient seen and examined, feels much better. CIWA scores are running low. Vital Signs Date Time Temp Pulse Resp B/P B/P Pulse O2 O2 Flow FiO2 Mean Ox Delivery Rate 11/25 1000 99.2 95 16 120/80 11/25 0949 99.2 95 18 120/80 97 11/25 0822 92 136/68 11/25 0800 92 16 136/68 11/25 0620 99.5 96 18 132/78 98 Room Air 11/25 0600 99.5 96 18 132/78 11/25 0400 97.2 86 18 108/72 11/25 0202 97.6 86 16 108/72 95 Room Air 11/25 0200 97.2 86 16 106/72 11/25 0000 98.8 82 18 130/80 11/24 2230 98.8 11/24 2200 98.8 82 18 130/80 11/24 2200 100.0 82 18 130/80 97 Room Air 11/24 1800 99.8 90 18 98/70 95 Room Air 11/24 1402 98.9 107 16 120/60 96 11/24 1400 98.9 107 16 120/60 on exam; aox3, nad. cv; s1,s2, rrr resp; clear abd; soft, nt, bs+ ext;l no edema Laboratory Tests 11/25 0907 Chemistry Sodium (137 - 145 mmol/L) 139 Potassium (3.5 - 5.1 mmol/L) 4.4 Chloride (98 - 107 mmol/L) 99 Carbon Dioxide (22 - 30 mmol/L) 25 Anion Gap (5 - 16) 14 BUN (7 - 17 mg/dL) 11 Creatinine (0.5 - 1.0 mg/dL) 0.4 L Estimated GFR (>60 ml/min) > 60 BUN/Creatinine Ratio (7 - 25 %) 27.5 H A/P: 62 y/o F with pmh sig for alcohol dependence, anxiety, depression, HTN, initially presented to the ER for an anxiety attack. She has a h/o PTSD since her divorce ( left her) about 6 yrs ago, admitted with acute alcohol intox, needing detox, electrolyte abnormalities. Continue Ativan taper per protocol. K improved. Continue other medications. Patient on Lovenox for DVT prophylaxis. Will need IOP when finished the taper.
[2017-11-26] VITALS: BP 120/60
[2017-11-26 02:00] VITALS: BP 112/78; BP 120/60
[2017-11-26 04:00] VITALS: BP 120/60
[2017-11-26 06:00] VITALS: BP 122/70
[2017-11-26 06:32] VITALS: BP 122/70
--- NOTE | 2017-11-26 07:30 | Discharge Summary ---
Visit Information Visit Dates Admission Date: 11/22/17 Discharge Date: 11/26/2017 Hospital Course Course Attending Physician: Dandy Cohen MD Primary Care Physician: Krishna HAMLIN,[facility] Course: This 62-year-old female with past medical history of alcohol withdrawal, depression, anxiety and hypertension. Vialts on presentation [facility] Admission labs were significant for potassium level of 2.7, magnesium level of 0.8. Transaminitis with total bilirubin 3.5 and direct bilirubin 1.8, AST 277 ALT 89 The patient was admitted to the general medicine floor for alcohol detoxification. She was started on Ativan standing dose and IV PRN along with thiamine, folate and multivitamin. Her CIWA score ran in lower range, she was tapered off Ativan. She presented with hypokalemia and hypomagnesemia likely secondary to alcohol abuse, her electrolytes were monitored and repleted. Her labs were also positive for mild Transaminitis, again most likely secondary to alcohol abuse. Hepatitis panel was negative, no RUQ tenderness and negative Coyle's sign Her home medication of Lexapro and amlodipine were continued. She was full code during her stay. -Patient will require monitoring of LFTs after discharge by PCP. If worsening consider RUQ ultrasound. -Patient has been extensively counseled on alcohol abstinence. She is willing to follow-up with care after discharge Allergies: Coded Allergies: NO KNOWN ALLERGIES (06/23/14) Disposition Summary Disposition Principal Diagnosis: Alcohol detoxification Additional Diagnosis: Transaminitis, hypokalemia, hypomagnesemia Discharge Disposition: home or self care Discharge Instructions General Discharge Information Code Status: Full Code Patient's Diet: Regular Patient's Activity: As tolerated Follow-Up Instructions/Appts: Follow-up with primary care after discharge follow-up with care after discharge Medications at Discharge Discharge Medications: Continue taking these medications: Amlodipine Besylate (Norvasc) 5 MG TABLET 1 Tablet ORAL DAILY Comments: Last Taken:11/26/17 Time:8:25A.M Escitalopram Oxalate (Lexapro) 20 MG TABLET 1.5 Tablet ORAL DAILY Comments: NOT GIVEN THIS ADMISSION Start taking the following new medications: Multivitamin (One Daily Multivitamin) 1 EACH TABLET 1 Tablet ORAL DAILY Qty = 30 No Refills Instructions: . Comments: Last Taken:11/26/17 Time:8:25A.M Lorazepam (Ativan) 0.5 MG TABLET 1 Tablet ORAL TWICE DAILY Qty = 2 No Refills Instructions: take one pill at night and one in morning Comments: Last Taken:11/26/17 Time:8:25A.M Copies To: Krishna HAMLIN,He
--- NOTE | 2017-11-26 07:48 | PN- Housestaff ---
See Addendum Subjective Follow-up For: Alcohol detoxification Subjective: Patient seen and examined resting comfortably. Easily arousable. No overnight acute events.. No offers no complaint. CIWA on the lower side. Maximum of 2. Patient is currently on 0.5 TID Ativan. Did not require any IV Ativan PRN requesting to be discharged. Stable to be discharged home today with 2 pills of Ativan Review of Systems Constitutional: Reports: see HPI. Objective Last 24 Hrs of Vital Signs/I&O Vital Signs Date Time Temp Pulse Resp B/P B/P Pulse O2 O2 Flow FiO2 Mean Ox Delivery Rate 11/26 0632 99.0 79 18 122/70 98 Room Air 11/26 0600 99.0 90 18 122/70 11/26 0400 99.3 93 18 120/60 11/26 0200 99.3 93 18 120/60 11/26 0200 99.1 96 18 112/78 98 Room Air 11/26 0000 99.3 93 18 120/60 11/25 2211 99.3 93 18 120/60 95 Room Air 11/25 1401 99.8 100 18 120/80 96 11/25 1400 99.8 100 18 120/80 11/25 1000 99.2 95 16 120/80 11/25 0949 99.2 95 18 120/80 97 Intake & Output 11/26 1600 11/26 0800 11/26 0000 Intake Total 460 480 Output Total Balance 460 480 Intake, Oral 460 480 Physical Exam General Appearance: Alert, Oriented X3 Cardiovascular: Normal S1, Normal S2 Lungs: Normal Air Movement Abdomen: Normal Bowel Sounds, Soft Neurological: Normal Speech Current Medications: Current Medications Sig/Dino Start time Last Medication Dose Route Stop Time Status Admin Amlodipine Besylate 5 MG DAILY 11/23 0900 AC 11/25 PO 22 Enoxaparin Sodium 40 MG DAILY 11/23 0900 AC 11/25 SC 0830 Folic Acid 1 MG DAILY 11/22 1754 AC 11/25 PO 0822 Lorazepam 0.5 MG ONCE 11/28 0000 DC PO 11/28 0001 Lorazepam 0.5 MG Q6H 11/27 0000 DC PO 11/27 1801 Lorazepam 0.5 MG ONCE ONE 11/26 1800 DC PO 11/26 1801 Lorazepam 1 MG Q6H 11/26 0000 DC PO 11/26 1201 Lorazepam 0.5 MG TID 11/25 2100 AC 11/25 PO 12/02 2059 2045 Lorazepam 1.5 MG Q12H 11/25 0600 DC 11/25 PO 11/25 1801 0558 Lorazepam 1 MG Q12H 11/25 0000 DC 11/25 PO 11/25 1201 1156 Lorazepam 0 Q1P PRN 11/22 1930 AC 11/23 IV 1306 Multivitamins 1 TAB DAILY 11/22 1753 AC 11/25 PO 0822 Omeprazole 40 MG DAILY AC 11/23 0700 AC 11/26 PO 0538 Ondansetron HCl 4 MG Q6P PRN 11/22 1800 AC IV Thiamine HCl 100 MG DAILY 11/22 1753 AC 11/25 PO 0822 Last 24 Hrs of Lab/Efrain Results Last 24 Hrs of Labs/Mics: Laboratory Tests 11/25/17 0907: Anion Gap 14, Estimated GFR > 60, BUN/Creatinine Ratio 27.5 H Assessment/Plan Assessment: This 62-year-old female with past medical history of alcohol withdrawal, depression, anxiety and hypertension She is admitted to [facility] for alcohol detoxification She is currently maintained managed for following problems #Alcohol withdrawal -CIWA 0-2 -IV ativan PRN -Ativan 0.5 mg BID will be given 2 pills for home -Multivitamin, folic acid, thiamine -Monitor for delirium tremens and alcohol withdrawal seizures -Social work consult #Electrolyte abnormalities patient presented with hypokalemia and hypomagnesemia likely secondary to alcohol abuse -Monitor and replete #Transaminitis Likely secondary to alcohol abuse -Continue to monitor -Hepatitis panel Negative -Worsening or any symptoms and we will consider right upper quadrant ultrasound #chronic medical conditions history of depression and anxiety and hypertension continue amlodipine and Lexapro #Regular diet/DVT prophylaxis with Lovenox/full code Problem List: 1. Alcohol withdrawal Pain Ratin Pain Location: none Pain Goal: Pain 4 or less Pain Plan: prn Tomorrow's Labs & Rationales: none
[2017-11-26] MEDS ORDERED: ATIVAN0.5 M1 PO (10:01)
[2017-11-26] MEDS ORDERED: ONE DAILY MULT1 EAC2 PO (10:02)
[2017-11-26 10:42] VITALS: BP 118/48
--- NOTE | 2017-11-26 11:08 | PN- Student ---
Subjective Subjective: Patient was laying comfortably in bed eating her breakfast. She reports that over the weekend her tremors and anxiety significantly improved and is now feeling back to baseline. She did not have a bowel movement since she was admitted on 11/22 and was feeling a little uncomfortable. She denies SOB , nausea, vomiting, dysuria, or burning on urinaiton. Objective Objective: PE: Constiutional: Well developed, well nourished in no acute distress Pulmonary: Lungs are clear to auscultation throughout Cardiovascular: Normal S1 and S2, no murmurs Gastrointestinal: Bowel sounds were active on auscultation in the left lower quardrant. Abdomin was non-tender to palpation in all quadrants. Results Results: Vital Signs Date Time Temp Pulse Resp B/P B/P Pulse O2 O2 Flow FiO2 Mean Ox Delivery Rate 11/26 1042 98.5 101 20 118/48 97 Room Air 11/26 0825 99.0 79 18 122/70 11/26 0632 99.0 79 18 122/70 98 Room Air 11/26 0600 99.0 90 18 122/70 11/26 0400 99.3 93 18 120/60 11/26 0200 99.3 93 18 120/60 11/26 0200 99.1 96 18 112/78 98 Room Air 11/26 0000 99.3 93 18 120/60 11/25 2211 99.3 93 18 120/60 95 Room Air 11/25 1401 99.8 100 18 120/80 96 11/25 1400 99.8 100 18 120/80 Intake & Output 11/26 1600 11/26 0800 11/26 0000 Intake Total 460 480 Output Total Balance 460 480 Intake, Oral 460 480 Number 1 Bowel Movements Laboratory Tests 11/25/17 0907: Anion Gap 14, Estimated GFR > 60, BUN/Creatinine Ratio 27.5 H 11/24/17 0735: Anion Gap 12, Estimated GFR > 60, BUN/Creatinine Ratio 17.5, Magnesium 1.6, Vitamin B12 702, Folate 8.6 11/23/17 1818: TSH Cancelled 11/23/17 1450: Hepatitis A IgM Ab Cancelled, Hep Bs Antigen Cancelled, Hep B Core IgM Ab Conf Cancelled, Hepatitis C Antibody Cancelled 11/23/17 1450: Anion Gap 14, Estimated GFR > 60, BUN/Creatinine Ratio 10.0, Total Bilirubin 3.1 H, Direct Bilirubin 1.8 H, AST 226 H, ALT 81 H, Alkaline Phosphatase 126, Total Protein 7.3, Albumin 4.1, TSH 1.980, CBC w Diff NO MAN DIFF REQ, RBC 4.08 L, MCV 94.6, MCH 32.8 H, MCHC 34.6, RDW 12.4, MPV 8.5, Gran % 81.1 H, Lymphocytes % 10.5 L, Monocytes % 7.5, Eosinophils % 0.8, Basophils % 0.1, Absolute Granulocytes 6.1, Absolute Lymphocytes 0.8 L, Absolute Monocytes 0.6, Absolute Eosinophils 0.1, Absolute Basophils 0, Hepatitis A IgM Ab NONREACTIVE, Hep Bs Antigen NONREACTIVE, Hep B Core IgM Ab Conf NONREACTIVE, Hepatitis C Antibody NONREACTIVE Assessment/Plan Assessment: 62 yo female with PMHx of alcohol withdrawl, depression, anxiety, PTSD, and HTN was admitted to [facility] [place] 4 days prior for acute EtOH detoxification with alochol induced hypokalemia and hypomagensimia, showing a significant reduction in tremors and anxiety and highest CIWA score of 2 in past 24hrs. Plan: 1. Alcohol Withdrawl: moderate to severe alcohol withdrawl is a serious condition with major complications being seizures, which occurs 24-48hrs after last drink, and delirium tremens, which occurs 48-96hrs after last drink and can last 1-5 days. * Continue lorazepam 0.5mg TID with last dose tomorrow morning because of significant resolution of symtoms with taper * Repeat CIWA score in 4-6hrs: CIWA is a systemic assesment used to measure withdrawl severity and access increased medication needs. Goal of therapy is to reach a low CIWA score (0-2). With this patient's history of low scores CIWA need only be recorded every 4-6hrs. * Monitor for hypokalemia and hypomagenesima: patient was treated with magenesium sulfate in 5% dextrose solution and potassium chloride supplementation without any reoccurance. It is likely due to excessive vomiting and was corrected on admission. * Follow up with detoxification clinic 2. Depression, PTSD: * Follow up with detoxification clinic * Follow up with psychiatrist or group therapy 3. Anxiety: * Follow up with psychiatrist or group therapy 4. HTN: * Continue Amlodipine 5mg 1 tab daily * Follwup with PCP
== END 2017-11-26 14:03 | DRG 897 ==
LOC: ERH 05:52 → 2NA 17:06 → ERHI 17:06 → ERH 18:30 → ERHI 18:30 → ENRESERV 19:03 → ENTRNSPT 19:56 → 2NA 19:57 → EDTRNSPTSTS 20:01 → EDTRNSPT 20:01 → 2NA 20:08 → CMPTRNSPT 20:20 → 2NA 11-23 08:26 → ENPENDDIS 11-26 10:54 → ENTRNSPT 11-26 13:22 → EDTRNSPTSTS 11-26 13:44 → EDTRNSPT 11-26 13:44 → 2NA 11-26 14:03 → CMPTRNSPT 11-26 14:08
PROVIDERS: Emergency Medicine; Student in an Organized Health Care Education/Training Program
DX: F10.239 Alcohol dependence with withdrawal, unspecified (principal); E83.42 Hypomagnesemia; F41.9 Anxiety disorder, unspecified; E87.6 Hypokalemia; I10 Essential (primary) hypertension; Y90.0 Blood alcohol level of less than 20 mg/100 ml; R74.0 Nonspecific elevation of levels of transaminase and lactic acid dehydrogenase [LDH]; Z72.0 Tobacco use; F32.9 Major depressive disorder, single episode, unspecified; F43.10 Post-traumatic stress disorder, unspecified; F43.20 Adjustment disorder, unspecified
CPT/HCPCS: 2NASP; 36415; 36592; 80307; 82436; 93005; 93010; 96374; 96375; 96376; 99233; G0480; J1650; J2405; J3490; J7060; Q2036

== ENCOUNTER 2018-03-12 23:24 | Inpatient (IN) | payer OTHER ==
[~2018-03-12] VITALS: Ht 160 cm; Wt 47.7 kg
[~2018-03-12 23:24] MED LIST changes: +ATIVAN0.5 M1 PO; +LEXAPRO20 M1 PO; +NORVASC5 M1 PO; +ONE DAILY MULT1 EAC2 PO
--- NOTE | 2018-03-12 23:51 | ED GI/GU/ABDOMINAL COMPLAINT ---
History of Present Illness General Chief Complaint: Chest Pain Stated Complaint: BIBA, CHEST PAIN Source: patient, old records Exam Limitations: no limitations Vital Signs & Intake/Output Vital Signs & Intake/Output Vital Signs Date Time Temp Pulse Resp B/P B/P Pulse O2 O2 Flow FiO2 Mean Ox Delivery Rate 03/14 0842 87 128/76 03/14 0633 98.2 87 20 128/76 97 Room Air 03/13 2250 98.0 70 20 122/80 99 Room Air 03/13 2200 98.2 80 18 130/70 Room Air 03/13 1054 98.4 73 16 110/78 99 Room Air 03/13 1043 Room Air 03/13 0909 98.2 80 12 126/72 08 0902 98.2 80 12 126/72 08 0852 98.2 80 12 126/72 100 Room Air ED Intake and Output 03/14 0000 03/13 1200 Intake Total 650 100 Output Total Balance 650 100 Intake, IV 600 100 Intake, Oral 50 Number 0 Bowel Movements Patient 99 lb 15.99 oz Weight Weight Bed scale Measurement Method Allergies Coded Allergies: NO KNOWN ALLERGIES (06/23/14) Reconcile Medications Amlodipine Besylate (Norvasc) 5 MG TABLET 1 TAB PO DAILY BP (Reported) Escitalopram Oxalate (Lexapro) 20 MG TABLET 1.5 TAB PO DAILY MENTAL HEALTH ( Reported) Multivitamin (One Daily Multivitamin) 1 EACH TABLET 1 TAB PO DAILY supplement . Triage Note: PT TO ED WITH C/O ONE WEEK OF N/V, THEN DEVELOPED SUBSTERNAL CP RADIATING TO RIGHT UPPER BACK 4 HOURS AGO. DENIES SOB OR DIZZINESS. RECEIVED 4 MG ZOFRAN FROM EMS. Triage Nurses Notes Reviewed? yes ? n Is pt currently ? No HPI: Patient presents for evaluation of profuse vomiting that began about 1 week ago. Patient can't state whether or not it was abrupt or gradual in onset. She did go to a walk-in clinic last week and was given nausea medicine with some improvement. She states however that although the vomiting has settled down and she is persistently nauseous and she "can't deal with it anymore". She states she is having vomiting that occurs every 5 minutes or so around the clock. She is also experiencing and epigastric abdominal pain described as intermittent and radiating to the back that began this evening. She otherwise denies fever, cold symptoms, diarrhea, dysuria, rashes, chest pain, dyspnea, recent travel or known ill contacts. She denies prior episodes like this. Past surgical history is only pertinent for . Patient is relatively heavy smoker and drinks at least a sixpack of beer daily. Past History Travel History Traveled to [place] past 21 day No Medical History Any Pertinent Medical History? 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 Hx Contributory? No Review of Systems Review of Systems Constitutional: Reports: no symptoms. EENTM: Reports: no symptoms. Respiratory: Reports: no symptoms. Cardiovascular: Reports: no symptoms. GI: Reports: see HPI. Genitourinary: Reports: no symptoms. Musculoskeletal: Reports: no symptoms. Skin: Reports: no symptoms. Neurological/Psychological: Reports: no symptoms. Hematologic/Endocrine: Reports: no symptoms. Immunologic/Allergic: Reports: no symptoms. All Other Systems: Reviewed and Negative Physical Exam Physical Exam Gastrointestinal: SEE BELOW Comments: Gen.: Well-nourished, well-developed, no acute respiratory distress. Head: Normocephalic, atraumatic. Eyes: Normal inspection bilaterally Ears: Normal inspection bilaterally Nose: Normal inspection Throat/mouth : Moist mucosa Neck: Supple, full range of motion, no goiter Heart: Regular rate and rhythm, no murmurs rubs or gallops Lungs: Clear to auscultation bilaterally with normal air entry Chest: Nontender Back: Normal range of motion Abdomen: Soft, epigastric tenderness with brief voluntary guarding but no rebound, nondistended, normal bowel sounds, no palpable masses Extremities: Normal range of motion grossly, equal radial pulses, no cyanosis clubbing or edema, calves nontender Neurologic: Cranial nerves grossly intact, speech is clear Skin: warm and dry Psychiatric: Calm, cooperative, no apparent delusions or hallucinations Core Measures ACS in differential dx? No Sepsis Present: No Sepsis Focused Exam Completed? No Progress Differential Diagnosis: biliary colic, bowel obstruction, cholecystitis, gastritis, hepatitis, ischemic bowel, inflamm bowel dis, pancreatitis, PUD/GERD Plan of Care: Orders Procedure Date/time Status Clear Liquid Diet 03/14 B Active Change service to 03/14 0840 Active PHOSPHORUS 03/13 2000 Complete MAGNESIUM 03/13 2000 Complete BASIC ELECTROLYTES PLUS BUN&CR 03/13 2000 Complete Weight 03/13 1042 Active Vital Signs 03/13 1042 Active Teach/Educate 03/13 104 Active Pain Treatment and Response 03/13 1042 Active Nutritional Intake, Monitor 03/13 1042 Active Isolation 03/13 1042 Active Intake & Output 03/13 1042 Active Patient Care Conference 03/13 1042 Active Activity/Ambulation 03/13 1042 Active Change service to 03/13 UNK Active Current Medications Sig/Dino Start time Last Medication Dose Stop Time Status Admin Escitalopram Oxalate 30 MG DAILY 03/14 900 AC 03/14 (Lexapro) 0842 Pantoprazole Sodium 40 MG DAILY 03/14 900 AC 03/14 (Protonix) 0842 Heparin Sodium 5,000 UNIT Q8 03/13 1400 AC 03/14 (Porcine) 0537 Lorazepam 2 MG Q6 03/13 1200 AC 03/14 (Ativan) 0536 Amlodipine Besylate 5 MG DAILY 03/13 0900 AC 03/14 (Norvasc) 0842 Folic Acid 1 MG DAILY 03/13 09 AC 03/14 (Folic Acid) 0842 Thiamine HCl 100 MG DAILY 03/13 0900 AC 03/14 (Vitamin B1) 0842 Ondansetron HCl 4 MG Q6P PRN 03/13 0830 AC 03/13 (Zofran) 0945 Acetaminophen 650 MG Q8P PRN 03/13 815 AC (Tylenol) Lorazepam 0 Q1P PRN 03/13 815 AC (Ativan) Morphine Sulfate 2 MG Q8P PRN 03/13 815 AC (MORPHINE SULFATE) Tramadol HCl 50 MG Q8P PRN 03/13 0815 AC 03/13 (Ultram) 2156 Laboratory Tests 03/14/18 0637: Sodium Pending, Potassium Pending, Chloride Pending, Carbon Dioxide Pending, Anion Gap Pending, BUN Pending, Creatinine Pending, BUN/Creatinine Ratio Pending , Phosphorus Pending, CBC w Diff NO MAN DIFF REQ, RBC 4.01 L, MCV 92.7, MCH 31.6 H, MCHC 34.0, RDW 13.0, MPV 7.7, Gran % 64.4, Lymphocytes % 24.6, Monocytes % 7.5, Eosinophils % 2.8, Basophils % 0.7, Absolute Granulocytes 3.6, Absolute Lymphocytes 1.4, Absolute Monocytes 0.4, Absolute Eosinophils 0.2, Absolute Basophils 0 03/13/181954: Anion Gap 10, Estimated GFR > 60, BUN/Creatinine Ratio 16.7, Phosphorus 1.7 L, Magnesium 1.5 L Diagnostic Imaging: Discussed w/RAD: Radiology Read, CT Scan. Radiology Impression: PATIENT: JOSSELINE HILARIO PRESENT AGE: 62 PATIENT ACCOUNT NO: [id number] : 56 LOCATION: [facility] ORDERING PHYSICIAN: Charanjit Cain MD SERVICE DATE: 03/12/18 EXAM TYPE: CAT - CT ABD & PELVIS W IV CONTRAST EXAMINATION: CT ABDOMEN AND PELVIS WITH CONTRAST CLINICAL INFORMATION: Epigastric pain. Abdominal pain. Tenderness. COMPARISON: None TECHNIQUE: Multidetector volumetric imaging was performed of the abdomen and pelvis following IV administration of 70 mL of Optiray 320 intravenous contrast. Sagittal and coronal reformatted images were obtained on the technologist's workstation. DLP: 248 mGy-cm FINDINGS: LUNG BASES: The visualized lung bases are unremarkable. LIVER, GALLBLADDER, AND BILIARY TREE: The liver is normal in size and shape with decreased attenuation. No focal hepatic lesion or biliary ductal dilatation is present. The gallbladder is distended with no evidence of radiopaque gallstones, gallbladder wall thickening, or obvious pericholecystic inflammatory changes. PANCREAS: The pancreatic parenchyma is homogenous. Mild inflammatory changes are seen in the region of the pancreatic head. SPLEEN: Unremarkable. ADRENAL GLANDS: Unremarkable. KIDNEYS AND URETERS: The kidneys are normal in size, shape, and attenuation. No hydronephrosis, hydroureter, or calculi seen. No perinephric stranding. 1.2 cm hypoattenuating lesion at the midpole of the right kidney measures higher than simple fluid. BLADDER: Unremarkable. GASTROINTESTINAL TRACT: Probable gastric diverticulum at the gastric fundus. The small bowel is normal in caliber. Mild hyperenhancement of the duodenal wall with adjacent inflammation. No bowel obstruction. No colonic wall thickening or inflammation. No free air or free fluid. ABDOMINAL WALL: No significant hernia is appreciated. LYMPH NODES: Normal. VASCULAR: Normal caliber aorta. Mild atherosclerotic calcifications. PELVIC VISCERA: The uterus and adnexa are unremarkable. OSSEOUS STRUCTURES: No acute or suspicious osseous abnormality. IMPRESSION: Inflammatory changes are seen in the region of the pancreatic head and duodenum. The appearance is somewhat nonspecific and could be associated with acute pancreatitis with reactive changes of the duodenum versus duodenitis. Hepatic steatosis. 1.2 cm hypoattenuating lesion at the midpole of the right kidney. This is indeterminate. Consider ultrasound to further evaluate. DICTATED BY: Roberto Colón MD DATE/TIME DICTATED:03/13/18123 WOOD WINDOW AND DOOR CRAFTSMAN:DALIA DATE/TIME TRANSCRIBED:03/13/18123 CONFIDENTIAL, DO NOT COPY WITHOUT APPROPRIATE AUTHORIZATION. <Electronically signed in Other Vendor System> SIGNED BY: Roberto Colón MD 03/13/18136 CXR Impression: PATIENT: JOSSELINE HILARIO PRESENT AGE: 62 PATIENT ACCOUNT NO: [id number] : 56 LOCATION: [facility] ORDERING PHYSICIAN: Charanjit Cain MD SERVICE DATE: 03/12/18 EXAM TYPE: RAD - XRY-CHEST XRAY, TWO VIEWS EXAMINATION: XR CHEST CLINICAL INFORMATION: Epigastric abdominal pain and back pain. Vomiting. COMPARISON: None TECHNIQUE: 2 views of the chest were obtained. FINDINGS: The lungs are well expanded. There is no focal consolidation, edema, or effusion. No pneumothorax. The cardiomediastinal silhouette is within normal limits. No acute osseous abnormality. IMPRESSION: No acute pulmonary findings. DICTATED BY: Roberto Colón MD DATE/TIME DICTATED: 03/13/18132 WOOD WINDOW AND DOOR CRAFTSMAN:DALIA DATE/TIME TRANSCRIBED:03/13/18132 CONFIDENTIAL, DO NOT COPY WITHOUT APPROPRIATE AUTHORIZATION. <Electronically signed in Other Vendor System> SIGNED BY: Roberto Colón MD 03/13/18[place] Initial ED EKG: none Comments: 03/13/2018 3:55:49 AM I have updated Josseline on test results. She is still feeling nauseous so additional antiemetics have been ordered. She appears to be suffering from alcohol induced pancreatitis. Departure Departure Disposition: STILL A PATIENT Condition: Stable Clinical Impression Primary Impression: Alcoholic hepatitis Qualifiers: Ascites presence: without ascites Qualified Code: K70.10 - Alcoholic hepatitis without ascites Referrals: He Keller MD (PCP/Family) Departure Forms: Customer Survey General Discharge Information Admission Note Spoke With: Ottoniel Lyons MD Documentation of Exam: Documentation of any treatments & extenuating circumstances including Concerns Regarding Discharge (functional status, medication knowledge or non-compliance, living conditions, etc.) that warrant an admission rather than observation: Patient has alcoholic hepatitis placing her at high risk for thirds patient, persistent vomiting, dehydration and uncontrolled pain. Her vomiting has made her unable to take oral medications and this makes her an extremely poor candidate for outpatient management. It is likely she would return in worse clinical condition. She admits to drinking at least a sixpack of beer daily and she would likely experience alcohol withdrawal placing her at risk of seizures and delirium tremens. This too makes her a poor candidate for outpatient management. I feel she requires hospitalization for IV fluids and antiemetics. Patient's lipase should be monitored for improvement. If patient's clinical condition does not improve with treatment then GI consultation should be considered. Patient should also be monitored for acute alcohol withdrawal and treated accordingly. I feel this patient will require a multiple day hospitalization. Critical Care Note Critical Care Note Critical Care Time: 30-74 min
[2018-03-13 00:15] LABS: ABSOLUTE BASOPHIL COUNT 0 /CUMM (0.0-0.2); ABSOLUTE EOSINOPHIL COUNT 0 /CUMM (0.0-0.7); ABSOLUTE GRANULOCYTE CT 7.7 /CUMM (1.4-6.5); ABSOLUTE LYMPH COUNT 0.8 /CUMM (1.2-3.4); ABSOLUTE MONOCYTE COUNT 0.8 /CUMM (0.10-0.60); BASOPHIL % 0.2 % (0.0-2.0); EOSINOPHIL % 0.3 % (0-5); GRANULOCYTE % 82.1 % (42.2-75.2); HEMATOCRIT 41.7 % (37-47); MEAN CORPUSCULAR HGB 31.7 PG (27.0-31.0); MEAN CORPUSCULAR HGB CONC 35.1 G/DL (33.0-37.0); MEAN CORPUSCULAR VOLUME 90.3 FL (81.0-99.0); MEAN PLATELET VOLUME 7.2 FL (7.4-10.4); PLATELET COUNT 248 /CUMM (130-400); RBC DISTRIBUTION WIDTH 12.5 % (11.5-14.5); RED BLOOD CELL CT 4.61 /CUMM (4.20-5.40); WHITE BLOOD CELL COUNT 9.3 /CUMM (4.8-10.8)
--- NOTE | 2018-03-13 01:37 | RADIOLOGY REPORT ---
EXAMINATION: XR CHEST CLINICAL INFORMATION: Epigastric abdominal pain and back pain. Vomiting. COMPARISON: None TECHNIQUE: 2 views of the chest were obtained. FINDINGS: The lungs are well expanded. There is no focal consolidation, edema, or effusion. No pneumothorax. The cardiomediastinal silhouette is within normal limits. No acute osseous abnormality. IMPRESSION: No acute pulmonary findings.
--- NOTE | 2018-03-13 01:37 | CT SCAN REPORT ---
EXAMINATION: CT ABDOMEN AND PELVIS WITH CONTRAST CLINICAL INFORMATION: Epigastric pain. Abdominal pain. Tenderness. COMPARISON: None TECHNIQUE: Multidetector volumetric imaging was performed of the abdomen and pelvis following IV administration of 70 mL of Optiray 320 intravenous contrast. Sagittal and coronal reformatted images were obtained on the technologist's workstation. DLP: 248 mGy-cm FINDINGS: LUNG BASES: The visualized lung bases are unremarkable. LIVER, GALLBLADDER, AND BILIARY TREE: The liver is normal in size and shape with decreased attenuation. No focal hepatic lesion or biliary ductal dilatation is present. The gallbladder is distended with no evidence of radiopaque gallstones, gallbladder wall thickening, or obvious pericholecystic inflammatory changes. PANCREAS: The pancreatic parenchyma is homogenous. Mild inflammatory changes are seen in the region of the pancreatic head. SPLEEN: Unremarkable. ADRENAL GLANDS: Unremarkable. KIDNEYS AND URETERS: The kidneys are normal in size, shape, and attenuation. No hydronephrosis, hydroureter, or calculi seen. No perinephric stranding. 1.2 cm hypoattenuating lesion at the midpole of the right kidney measures higher than simple fluid. BLADDER: Unremarkable. GASTROINTESTINAL TRACT: Probable gastric diverticulum at the gastric fundus. The small bowel is normal in caliber. Mild hyperenhancement of the duodenal wall with adjacent inflammation. No bowel obstruction. No colonic wall thickening or inflammation. No free air or free fluid. ABDOMINAL WALL: No significant hernia is appreciated. LYMPH NODES: Normal. VASCULAR: Normal caliber aorta. Mild atherosclerotic calcifications. PELVIC VISCERA: The uterus and adnexa are unremarkable. OSSEOUS STRUCTURES: No acute or suspicious osseous abnormality. IMPRESSION: Inflammatory changes are seen in the region of the pancreatic head and duodenum. The appearance is somewhat nonspecific and could be associated with acute pancreatitis with reactive changes of the duodenum versus duodenitis. Hepatic steatosis. 1.2 cm hypoattenuating lesion at the midpole of the right kidney. This is indeterminate. Consider ultrasound to further evaluate.
[2018-03-13 07:00] VITALS: BP 123/61
--- NOTE | 2018-03-13 07:05 | History & Physical ---
Reji Pottermiryamgerard 03/13/18 0704: General Information and HPI MD Statement: I have seen and personally examined JOSSELINE HILARIO and documented this H&P. The patient is a 62 year old F who presented with a patient stated chief complaint of Source of Information: patient, old records Exam Limitations: no limitations History of Present Illness: Mr Hilario is a 62 year old woman w/ past medical history of hypertension, anxiety, alcohol abuse, electrolyte abnormalities, recent admit to [facility] 11/22/2017-11/26/2017 for alcohol detox and came to the hospital with a chief concern of nausea and vomiting 1 week. She was in her usual state of health until one week ago, when she developed nausea and vomiting, which was not relieved by antiemetics. She had several episodes of vomiting, and reported decreased appetite. No hematemesis. Also reported epigastric abdominal discomfort, radiating to the back. No diarreha, donovan, or hematochezia. No abdominal distention. Terrazzo Grinder revious admissions for the tx of pancreatits. No fever, diarrhea, or recent travel. No chest pain, palpitations. No previous cardiac workup. Reported to have had an upper endoscopy 10 yrs ago for evaluation of dysphagia; currently doesnt have any complaints of dysphagia or odynophagia. Reported has been using alcohol, upto 6 beers daily, and some amount of whiskey. Reported that the amount can vary to as little as two drinks per day x 20 years, heavy use in the last few years. No past history of cholelithiasis. Occasional smoker. No intravenous drug use. Last drink 24 hrs ago. Current smoker 30 pk year smoking history. Allergies/Medications Allergies: Coded Allergies: NO KNOWN ALLERGIES (06/23/14) Home Med list Amlodipine Besylate (Norvasc) 5 MG TABLET 1 TAB PO DAILY BP (Reported) Escitalopram Oxalate (Lexapro) 20 MG TABLET 1.5 TAB PO DAILY MENTAL HEALTH ( Reported) Multivitamin (One Daily Multivitamin) 1 EACH TABLET 1 TAB PO DAILY supplement . 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 Psychosocial History Who Do You Live With? self Services at Home: None Primary Language: Polish ETOH Use: heavy use Illicit Drug Use: denies illicit drug use Functional Ability ADLs Independent: dressing, eating, toileting, bathing. Ambulation: independent IADLs Independent: shopping, housework, finances, food prep, telephone, transportation , medication admin. Review of Systems Review of Systems Constitutional: Reports: see HPI. Denies: chills, fever. EENTM: Denies: blurred vision, icterus. Cardiovascular: Denies: chest pain, palpitations. Respiratory: Denies: hemoptysis, short of breath. GI: Reports: abdominal pain. Denies: diarrhea, distention, melena. Genitourinary: Denies: dysuria, frequency. Musculoskeletal: Denies: back pain. Skin: Denies: change in skin color. Neurological/Psychological: Denies: ataxia, dementia. Hematologic/Endocrine: Denies: bruising. Exam & Diagnostic Data Last 24 Hrs of Vital Signs/I&O Vital Signs Date Time Temp Pulse Resp B/P B/P Pulse O2 O2 Flow FiO2 Mean Ox Delivery Rate 03/13 700 98.5 79 18 123/61 03/13 07 98.5 79 18 123/61 100 Room Air 03/13 0202 98 20 144/93 99 Room Air 03/12 2329 98.0 91 17 162/82 99 Room Air Intake & Output 03/13 1600 03/13 0800 03/13 0000 Intake Total 100 Output Total Balance 100 Intake, IV 100 Patient 99 lb 15.99 oz Weight Weight Reported by Patient Measurement Method Physical Exam General Appearance Alert, Oriented X3, Cooperative, No Acute Distress Skin No Rashes, No Breakdown, No Significant Lesion Skin Temp/Moisture Exam: Warm/Dry Sepsis Skin Exam (color): Normal for Ethnicity HEENT Atraumatic, PERRLA, EOMI, dry mucus membranes, poor dentition Neck Supple, No JVD, No thryomegaly Lymphatic Axillary nl, Cervical nl Cardiovascular Regular Rate, Normal S1, Normal S2, No Murmurs Lungs Clear to Auscultation, Normal Air Movement Abdomen Normal Bowel Sounds, No Hepatospenomegaly, No Masses, RUQ tendnerness, epigastric tenderness, no guarding or rigidity. Neurological Normal Speech, Strength at 5/5 X4 Ext, Normal Tone, Sensation Intact, Cranial Nerves 3-12 NL, Reflexes 2+ Extremities No Clubbing, No Cyanosis, No Edema, Normal Pulses, No Tenderness/ Swelling Vascular Pulses Symmetrical Sepsis Peripheral Pulse Location: Dorsalis Pedis Sepsis Peripheral Pulse Exam: Normal Sepsis Cap Refill Exam: <2 Sec Body Front and Back (Adult) 1) tenderness. Last 24 Hrs of Labs/Efrain: Laboratory Tests 03/13/18 0129: Urine Opiates Screen < 100, Methadone Screen < 40, Barbiturate Screen < 60, Ur Phencyclidine Scrn < 6.00, Amphetamines Screen < 100, U Benzodiazepines Scrn < 85, Urine Cocaine Screen < 50, Urine Cannabis Screen < 5.00, Urine Color YEL, Urine Clarity CLEAR, Urine pH 6.0, Ur Specific [place] 1.020, Urine Protein TRACE H, Urine Ketones >=80, Urine Nitrite NEG, Urine Bilirubin NEG, Urine Urobilinogen 1.0, Ur Leukocyte Esterase NEG, Ur Microscopic SEDIMENT EXAMINED, Urine RBC RARE, Urine WBC 1-3 H, Ur Epithelial Cells FEW, Urine Bacteria FEW H , Hyaline Casts FEW H, Urine Hemoglobin NEG, Urine Glucose NEG 03/12/18 6549: Anion Gap 23 H, Estimated GFR > 60, BUN/Creatinine Ratio 17.5, Glucose 131 H, Calcium 9.3, Magnesium 1.7, Total Bilirubin 2.5 H, AST 75 H, ALT 42, Alkaline Phosphatase 109, Total Protein 7.7, Albumin 4.5, Globulin 3.2, Albumin/Globulin Ratio 1.4, Lipase 1699 H, CBC w Diff NO MAN DIFF REQ, RBC 4.61, MCV 90.3, MCH 31.7 H, MCHC 35.1, RDW 12.5, MPV 7.2 L, Gran % 82.1 H, Lymphocytes % 8.4 L, Monocytes % 9.0, Eosinophils % 0.3, Basophils % 0.2, Absolute Granulocytes 7.7 H, Absolute Lymphocytes 0.8 L, Absolute Monocytes 0.8 H, Absolute Eosinophils 0, Absolute Basophils 0, Serum Alcohol 28.0 Diagnostic Data EKG Results NSR, No STTWI. QTc 449 Assessment/Plan Assessment: Mr Hilario is a 62 year old woman w/ past medical history of hypertension, anxiety, alcohol abuse, electrolyte abnormalities, recent admit to [facility] 11/22/2017-11/26/2017 for alcohol detox and came to the hospital with a chief concern of nausea and vomiting 1 week. At the time of admission, temperature 98.0, pulse rate 90, blood pressure 162/82 -->144/93, 99% on room air. Pertinent lab findings: WBC 9.3, hemoglobin 14.6, platelet count 248. Sodium 135, potassium 3.4, chloride 94, BUN 7, Cr 0.4 ( low po intake) Bicarbonate 19, anion gap 23 (mild anion gap metabolic acidosis) AST 75, ALT 42, Albumin 4.5 total bilirubin 2.5, calcium 9.3 Lipase 1699 Urine tox negative for opiates, barbiturates, amphetamines, benzodiazepines, cocaine, cannabis. Alcohol 28. Urinalysis revealed multiple hyaline casts. Chest x-ray revealed no acute pulmonary findings. CT scan abdomen : The pancreatic parenchyma is homogenous. Mild inflammatory changes are seen in the region of the pancreatic head .Probable gastric diverticulum at the gastric fundus. The small bowel is normal in caliber. Mild hyperenhancement of the duodenal wall with adjacent inflammation. No bowel obstruction. No colonic wall thickening or inflammation. No free air or free fluid. Inflammatory changes are seen in the region of the pancreatic head and duodenum. The appearance is somewhat nonspecific and could be associated with acute pancreatitis with reactive changes of the duodenum versus duodenitis. Hepatic steatosis. 1.2 cm hypoattenuating lesion at the midpole of the right kidney. This is indeterminate. Problem list: #1 acute pancreatitis (alcohol induced) #2 alcohol detox #3 history of anxiety #4 radiological finding of gastric diverticulum #5 radiological finding duodenitis #5 alcoholic hepatitis #6 Mild AGMA, likely alcohol idnuced. Etiology of this case of mild acute pancreatitis is likely from alcohol, but other etiologies such as gallbladder-cholelithiasis need to be kept and differentials which can be investigated given her RUQ tenderness, and slightly abnormal liver chemistries. MDF couldnt be calculated at this time. Very low BiSAP score indicates, 0.5% mortality, however would need to monitored closely with serial abdominal exams, monitoring for circulatory collapse etc. She has multple risk factors, and important of them is alcohol and smoking which needs to be addressed at this time. She seemed to have relapsed right after her last detox, and attributed this to lack of social support. 1. Admit the pt to gen med service 2. She wasnt adequately hydrated, and would hydrate w/ RL at 200ml/hr for now. 3. Check ins and outs 4. Anti-emetics prn, and pain meds as needed. QTc wnl. 5. Avoid NSAIDS. 6. Check labs including coag profile. 7. CIWA, and ativan as per CIWA. She is allso started on ativan 2mg q6hr po for now. 8. IV PPI for now, and change to po in the next 24-48 hrs given e/o duodenitis. 9. Serial abdominal exams, to make sure that there is no katherine shraddha etc. 10. NPO for now. Advance diet as she tolerates. 11. RUQ US to r/o any cholelithiasis/choledocholithiasis. 12. Check electrolytes, and replenish accordigly. 13. Restart her anti-hypertensives. Monitor vitals closely. Diet- NPO for now. Full code Sc heparin DVT PPx As Ranked By This Provider Problem List: 1. Alcoholic hepatitis Qualifiers Ascites presence: without ascites Qualified Code: K70.10 - Alcoholic hepatitis without ascites 2. Hypokalemia 3. Vomiting 4. Anxiety 5. Alcohol withdrawal Core Measures/Misc (04/22) Acute Coronary Syndrome ACS Diagnosis: No Congestive Heart Failure Congestive Heart Failure Diagnosis No Cerebrovascular Accident CVA/TIA Diagnosis: No VTE (View Protocol) VTE Risk Factors Acute Medical Illness No Mechanical VTE Prophylaxis d/t N/A MechProphylax Ordered No VTE Pharm Prophylaxis d/t NA PharmProphylax ordered Sepsis (View protocol) Sepsis Present: No If YES complete Sepsis Event Note If YES complete Sepsis Event Note Tab Johnson 03/13/18 1011: Core Measures/Misc (04/22) Sepsis (View protocol) If YES complete Sepsis Event Note If YES complete Sepsis Event Note Attending MD Review Statement Attending Statement Attending MD Statement: examined this patient, discuss w/resident/PA/JUNIOR SYSTEMS ADMINISTRATOR, agreed w/resident/PA/JUNIOR SYSTEMS ADMINISTRATOR, discussed with family, reviewed EMR data (avail), discussed with nursing, discussed with case mgmt, reviewed images, amended to note Attending Assessment/Plan: Agree with above. Admit for pancreatitis. Aggressive hydration. CIWA and ativan prn. Thiamine, folic acid.
[2018-03-13 08:40] LABS: ABSOLUTE BASOPHIL COUNT 0 /CUMM (0.0-0.2); ABSOLUTE EOSINOPHIL COUNT 0 /CUMM (0.0-0.7); ABSOLUTE LYMPH COUNT 0.9 /CUMM (1.2-3.4); ABSOLUTE MONOCYTE COUNT 0.6 /CUMM (0.10-0.60); BASOPHIL % 0.4 % (0.0-2.0); EOSINOPHIL % 0.7 % (0-5); GRANULOCYTE % 75.7 % (42.2-75.2); HEMATOCRIT 37.4 % (37-47); MEAN CORPUSCULAR HGB 32.1 PG (27.0-31.0); MEAN CORPUSCULAR HGB CONC 35.6 G/DL (33.0-37.0); MEAN CORPUSCULAR VOLUME 90.2 FL (81.0-99.0); MEAN PLATELET VOLUME 7.4 FL (7.4-10.4); PLATELET COUNT 209 /CUMM (130-400); RBC DISTRIBUTION WIDTH 12.4 % (11.5-14.5); RED BLOOD CELL CT 4.15 /CUMM (4.20-5.40); WHITE BLOOD CELL COUNT 6.7 /CUMM (4.8-10.8)
[2018-03-13 08:44] LABS: PT 12.9 SEC (9.4-12.5)
[2018-03-13 09:09] VITALS: BP 126/72
--- NOTE | 2018-03-13 10:48 | ULTRASOUND REPORT ---
EXAMINATION: US ABDOMEN LIMITED CLINICAL INFORMATION: Pancreatitis. Likely alcoholic. Right upper quadrant tenderness on exam. Rule out any gallstones or CBD dilatation. COMPARISON: CT scan of the abdomen and pelvis dated 03/12/2018. TECHNIQUE: Real-time imaging of the right upper quadrant abdominal viscera. FINDINGS: Evaluation is limited due to patient's inability to suspend respiration. PANCREAS: The pancreatic body is partially visualized and appears unremarkable. Remainder of the pancreas is obscured by overlying bowel gas. LIVER: The left lobe of the liver is enlarged. There is diffuse increase in liver parenchymal echogenicity with attenuation of the sound beam, consistent with hepatic steatosis. No focal lesion or intrahepatic biliary duct dilatation. GALLBLADDER: Normal. The gallbladder is physiologically distended without evidence of stones, sludge, polyps, wall thickening or pericholecystic fluid. COMMON BILE DUCT: Normal in caliber measuring 0.3 cm in diameter. RIGHT KIDNEY: No hydronephrosis. No renal calculi. Corresponding to the CT scan findings, there is a poorly visualized hypoechoic 1.2 x 1.2 x 1.0 cm complex cystic mass seen in the interpolar region of the right kidney. There are some irregular echogenic foci associated with the frausto of this cystic mass, possibly representing subtle calcifications. There are also some low-level internal echoes seen within the mass. No additional renal mass seen. The kidney measures 11.0 cm in maximum dimension. FREE FLUID: None. IMPRESSION: 1. Pancreas incompletely visualized. The subtle peripancreatic edema and presumed pancreatitis seen on CT scan is not appreciated on ultrasound. 2. Diffuse hepatic steatosis with mild enlargement of the left lobe of the liver. 3. Complex cystic mass is seen within the mid right kidney. This is not well enough visualized to accurately characterize into the Bosniak system. The mass remains indeterminate in etiology and in the absence of old films, further characterization is warranted. Recommend dedicated renal MRI scan with and without contrast. This can be performed in the nonacute outpatient setting.
[2018-03-13 10:54] VITALS: BP 110/78
[2018-03-13 22:00] VITALS: BP 130/70
[2018-03-13 22:50] VITALS: BP 122/80
[2018-03-14 06:33] VITALS: BP 128/76
--- NOTE | 2018-03-14 07:11 | PN- Housestaff ---
Felecia Miller 03/14/18 0711: Subjective Follow-up For: Acute pancreatitis and elctrolyte imbalance Subjective: Patient was seen and examined at bedside. She states that her pain is 5 on 10 which is increased since her admission. She says she felt better though. She was nodding off in mid sentences, reported that Ativan has been almost "knocking her out", but she is happy because she has been able to sleep better. She says she wants to try eating something. The patient was started on clear liquids but she could not tolerate it and had vomiting. She denies fever, chills, nausea, vomiting, chest pain, dizziness or lightheadedness. Review of Systems Constitutional: Reports: see HPI. Objective Last 24 Hrs of Vital Signs/I&O Vital Signs Date Time Temp Pulse Resp B/P B/P Pulse O2 O2 Flow FiO2 Mean Ox Delivery Rate 03/14 0633 98.2 87 20 128/76 97 Room Air 03/13 2250 98.0 70 20 122/80 99 Room Air 03/13 2200 98.2 80 18 130/70 Room Air 03/13 1054 98.4 73 16 110/78 99 Room Air 08 1043 Room Air 03/13 0909 98.2 80 12 126/72 08/08 0902 98.2 80 12 126/72 08/08 0852 98.2 80 12 126/72 100 Room Air Intake & Output 03/14 1600 / 0800 03/14 0000 Intake Total 300 Output Total Balance 300 Intake, IV 300 Patient 102 lb Weight Physical Exam General Appearance: Alert, Oriented X3, Cooperative, Mild Distress Skin: No Rashes HEENT: Atraumatic Cardiovascular: Regular Rate, Normal S1, Normal S2 Lungs: Clear to Auscultation Abdomen: Normal Bowel Sounds, Soft, slight difuse tenderness Assessment/Plan Assessment: Mr Nieves is a 62 year old woman w/ past medical history of hypertension, anxiety, alcohol abuse, electrolyte abnormalities, recent admit to [facility] 11/22/2017-11/26/2017 for alcohol detox and came to the hospital with a chief concern of nausea and vomiting 1 week. Urinalysis revealed multiple hyaline casts. Chest x-ray revealed no acute pulmonary findings. CT scan on addmission showed evidence of acute pancreatitis with mild inflammatory changes in the region of the pancreatic head. The Ct also showed evidence of gastirc diverticuluma and duodenitis. 1 acute pancreatitis (alcohol induced) 2 alcohol detox 3 history of anxiety 4 radiological finding of gastric diverticulum 5 radiological finding duodenitis 5 alcoholic hepatitis 6 Mild AGMA, likely alcohol idnuced. 1. Acute pancreatitis; likely alcohol induced -Pancreatitis diagnosed with evidence of inflammation on imaging, serum lipase levels of 1699. -She complains of epigastric and RUQ pain 5/10. -We will ensure adequate hydration -We will advance her diet as tolerated -We will monitoe her with serial abdominal exams. 2. Alcohol detox -Her alcohol level on addmission was 28 -She was admitted to [facility] for an alcohol detoxification. She says she immediately relapsed because of lack of social support. -We will monitor her for symtoms of alcohol withdrawal. -We will regularly monitor her CIWA score and scheule Ativan PRN 3. Electrolyte imbalance -Her serum electrolytes Na:136 K:2.7 Phosphorous:1.5 -The patient was started on KCl 40meq. We will monitor her K levels. -We will repeat a BEP in the evening to monitor her electrolytes Diet- NPO for now. Full code Sc heparin DVT PPx Problem List: 1. Abnormal liver function test 2. Alcohol withdrawal 3. Anxiety 4. Vomiting 5. Hypokalemia 6. Hypomagnesemia 7. Acute pancreatitis Pain Ratin Pain Location: epigastric region Pain Goal: Pain 4 or less Pain Plan: pathway Tomorrow's Labs & Rationales: cbc and bep Tab Johnson 03/14/18 1010: Attending MD Review Statement Attending Statement Attending MD Statement: examined this patient, discuss w/resident/PA/OIL FIELD RIG BUILDER, agreed w/resident/PA/OIL FIELD RIG BUILDER, discussed with family, reviewed EMR data (avail), discussed with nursing, discussed with case mgmt, reviewed images, amended to note Attending Assessment/Plan: Patient admitted here for acute pancreatitis after alcohol binge. Overnight she had nausea and vomiting this morning. Patient is kept NPO, IVF, Pain control. Replace elecetrolytes/potassium for severe hypokalemia. She is scoring low on CIWA. We can monitor CIWA and ativan prn. Continue to follow clinically. GI/DVT prophylaxis
[2018-03-14 08:00] VITALS: BP 128/76
[2018-03-14 08:03] LABS: ABSOLUTE BASOPHIL COUNT 0 /CUMM (0.0-0.2); ABSOLUTE EOSINOPHIL COUNT 0.2 /CUMM (0.0-0.7); ABSOLUTE GRANULOCYTE CT 3.6 /CUMM (1.4-6.5); ABSOLUTE LYMPH COUNT 1.4 /CUMM (1.2-3.4); ABSOLUTE MONOCYTE COUNT 0.4 /CUMM (0.10-0.60); BASOPHIL % 0.7 % (0.0-2.0); EOSINOPHIL % 2.8 % (0-5); GRANULOCYTE % 64.4 % (42.2-75.2); HEMATOCRIT 37.2 % (37-47); MEAN CORPUSCULAR HGB 31.6 PG (27.0-31.0); MEAN CORPUSCULAR VOLUME 92.7 FL (81.0-99.0); MEAN PLATELET VOLUME 7.7 FL (7.4-10.4); PLATELET COUNT 188 /CUMM (130-400); RED BLOOD CELL CT 4.01 /CUMM (4.20-5.40); WHITE BLOOD CELL COUNT 5.5 /CUMM (4.8-10.8)
[2018-03-14 14:26] VITALS: BP 157/96
[2018-03-14 16:09] VITALS: BP 157/96
[2018-03-14 22:20] VITALS: BP 144/80
[2018-03-15] VITALS (7 sets, daily range): BP systolic 110–138; BP diastolic 58–82
--- NOTE | 2018-03-15 07:18 | PN- Housestaff ---
AngelaFeleica 03/15/18 0717: Subjective Follow-up For: Acute pancreatitis Subjective: Patient was seen and examined at bedside. She says she feels much better now. The pain in the epigastric region and RUQ has subsided, however it is still a 7/ 10 in the centre of her back. The patient says she feels hungry and would like to eat something. She denies fever, chills, nausea, vomiting, palpitations, shortness of breath. Review of Systems Constitutional: Reports: see HPI. Objective Last 24 Hrs of Vital Signs/I&O Vital Signs Date Time Temp Pulse Resp B/P B/P Pulse O2 O2 Flow FiO2 Mean Ox Delivery Rate 03/15 0553 98.9 90 18 110/70 97 03/14 2220 98.3 90 18 144/80 96 Room Air 03/14 1609 98.0 83 16 157/96 03/14 1426 98.0 83 16 157/96 95 Room Air 03/14 0842 87 128/76 Intake & Output 03/15 1600 03/15 0800 03/15 0000 Intake Total 892.5 431.25 Output Total Balance 892.5 431.25 Intake, IV 892.5 431.25 Patient 110 lb Weight Physical Exam General Appearance: Alert, Oriented X3, Cooperative, No Acute Distress Skin: No Rashes Neck: Supple Cardiovascular: Regular Rate, Normal S1, Normal S2 Lungs: Clear to Auscultation Abdomen: Normal Bowel Sounds, Soft, No Tenderness Extremities: No Edema, Normal Pulses Current Medications: Current Medications Sig/Dino Start time Last Medication Dose Route Stop Time Status Admin Acetaminophen 650 MG Q8P PRN 03/13 815 AC PO Amlodipine Besylate 5 MG DAILY 03/13 900 AC 03/14 PO 0842 Escitalopram Oxalate 30 MG DAILY 03/14 900 AC 03/14 PO 0842 Folic Acid 1 MG DAILY 03/13 900 AC 03/14 PO 0842 Heparin Sodium 5,000 UNIT Q8 03/13 1400 AC 03/15 (Porcine) SC 0525 Lorazepam 2 MG Q6 03/13 1200 DC 03/14 PO 0536 Lorazepam 0 Q1P PRN 03/13 815 AC IV Magnesium Sulfate 1 GM ONCE ONE 03/14 1715 DC 03/14 Dextrose/Water 100 ML IV 03/14 2114 1817 Melatonin 10 MG AT BEDTIME NEED.. 03/14 2230 AC PO Morphine Sulfate 2 MG Q8P PRN 03/13 0815 AC IV Ondansetron HCl 4 MG Q6P PRN 03/13 0830 AC 03/13 IV 0945 Pantoprazole Sodium 40 MG DAILY 03/14 09 AC 03/14 IV 0842 Patient Medication 1 ED ONE ONE 03/14 1115 DC Teaching ED 03/14 1116 Potassium Chloride 40 MEQ Q6H 03/14 1200 AC 03/15 Lactated Ringer's 1,000 ML IV 0520 Potassium Chloride 40 MEQ CONTINOUS INFUSION 03/14 1145 DC Lactated Ringer's 1,000 ML IV Potassium Chloride 40 MEQ ONCE ONE 03/14 0945 CAN PO 03/14 0946 Potassium Chloride 10 MEQ Q1H 03/14 945 DC 03/14 IV 03/14 1046 1150 Potassium Phosphate 15 mMol ONE ONE 03/14 1800 DC 03/14 Sodium Chloride 250 ML IV 03/14 2204 2133 Thiamine HCl 100 MG DAILY 03/13 900 AC 03/14 PO 0842 Tramadol HCl 0 .STK-MED ONE 03/15 0441 DC PO Tramadol HCl 50 MG Q8P PRN 03/13 0815 AC 03/15 PO 0443 Assessment/Plan Assessment: Mr Nieves is a 62 year old woman w/ past medical history of hypertension, anxiety, alcohol abuse, electrolyte abnormalities, recent admit to [facility] 11/22/2017-11/26/2017 for alcohol detox and came to the hospital with a chief concern of nausea and vomiting 1 week. Urinalysis revealed multiple hyaline casts. Chest x-ray revealed no acute pulmonary findings. CT scan on addmission showed evidence of acute pancreatitis with mild inflammatory changes in the region of the pancreatic head. The Ct also showed evidence of gastirc diverticuluma and duodenitis. 1 acute pancreatitis (alcohol induced) 2 alcohol detox 3 history of anxiety 4 radiological finding of gastric diverticulum 5 radiological finding duodenitis 5 alcoholic hepatitis 6 Mild AGMA, likely alcohol idnuced. 1. Acute pancreatitis; likely alcohol induced -Pancreatitis diagnosed with evidence of inflammation on imaging, serum lipase levels of 1699. -Epigastric and RUQ pain has subsided. Pain is localised to the middle of the back.. -We will ensure adequate hydration -We will advance her diet as tolerated -We will monitoe her with serial abdominal exams. 2. Alcohol detox -Her alcohol level on addmission was 28 -She was admitted to [facility] for an alcohol detoxification. She says she immediately relapsed because of lack of social support. -We will monitor her for symtoms of alcohol withdrawal. -We will regularly monitor her CIWA score and scheule Ativan PRN -The patienti is willing to join an alcohol withdrawal support group. We have requested a social work consult to help her. 3. Electrolyte imbalance -Her serum electrolytes Na:131 K:4 Phosphorous:1.5 -We will repeat a BEP in the am tomorrow. If the patient is able to ambulate on own and tolerate a regular diet, she can be disharged by evening today. DVT prophylaxis Code status: Ful code Diet as tolerated Problem List: 1. Acute pancreatitis 2. Hypomagnesemia 3. Hypokalemia 4. Vomiting 5. Anxiety 6. Alcohol withdrawal Pain Ratin Pain Location: back Pain Goal: Pain 4 or less Pain Plan: pathway Tomorrow's Labs & Rationales: cbc and bep Tab Johnson 03/15/18 1056: Attending MD Review Statement Attending Statement Attending MD Statement: examined this patient, discuss w/resident/PA/PUBLIC HEALTH ADVISOR, agreed w/resident/PA/PUBLIC HEALTH ADVISOR, discussed with family, reviewed EMR data (avail), discussed with nursing, discussed with case mgmt, reviewed images, amended to note Attending Assessment/Plan: Pateint with overall clinical improvement tolerating PO diet. Pateint is advisd to abstain from alcohol. She is encouraged to ambulate and if she tolerates diet she can be discharged in next 24 hrs. Follow up with PCP outpatient.
[2018-03-16 06:19] VITALS: BP 120/78; BP 132/68
[2018-03-16 08:00] VITALS: BP 132/68
--- NOTE | 2018-03-16 09:12 | PN- Housestaff ---
Felecia Miller 03/16/18 0912: Subjective Follow-up For: Acute pancreatitis Subjective: Patient was seen and examined at bedside. She says she feels much better now. Sh says the pain is a zero today. She has been eating and drinking well. She denies fever, chills, nausea, vomiting, palpitations, shortness of breath. Review of Systems Constitutional: Reports: see HPI. Objective Last 24 Hrs of Vital Signs/I&O Vital Signs Date Time Temp Pulse Resp B/P B/P Pulse O2 O2 Flow FiO2 Mean Ox Delivery Rate 03/16 0958 98.4 84 21 124/70 03/16 0619 98.1 87 18 132/68 97 Room Air 03/15 2150 98.5 83 16 138/82 96 03/15 1800 98.5 90 20 110/58 96 03/15 1600 97.8 90 18 110/66 03/15 1444 97.8 90 18 110/66 96 03/15 1400 97.8 90 18 110/66 Intake & Output 03/16 1600 03/16 0800 03/16 0000 Intake Total 200 200 Output Total 500 Balance -300 200 Intake, Oral 200 200 Output, Urine 500 Physical Exam General Appearance: Alert, Oriented X3, Cooperative Neck: Supple Cardiovascular: Regular Rate, Normal S1, Normal S2 Lungs: Clear to Auscultation Abdomen: Soft, No Tenderness, No Hepatospenomegaly Assessment/Plan Assessment: Mr Nieves is a 62 year old woman w/ past medical history of hypertension, anxiety, alcohol abuse, electrolyte abnormalities, recent admit to [facility] 11/22/2017-11/26/2017 for alcohol detox and came to the hospital with a chief concern of nausea and vomiting 1 week. Urinalysis revealed multiple hyaline casts. Chest x-ray revealed no acute pulmonary findings. CT scan on addmission showed evidence of acute pancreatitis with mild inflammatory changes in the region of the pancreatic head. The Ct also showed evidence of gastirc diverticuluma and duodenitis. 1 acute pancreatitis (alcohol induced) 2 alcohol detox 3 history of anxiety 4 radiological finding of gastric diverticulum 5 radiological finding duodenitis 5 alcoholic hepatitis 6 Mild AGMA, likely alcohol idnuced. 1. Acute pancreatitis; likely alcohol induced -Pancreatitis diagnosed with evidence of inflammation on imaging, serum lipase levels of 1699. -The patient reports no pain today. -She is tolerating her diet well. 2. Alcohol detox -Her alcohol level on addmission was 28 -She was admitted to [facility] for an alcohol detoxification. She says she immediately relapsed because of lack of social support. -The patient is willing to join an alcohol withdrawal support group. We have requested a social work consult to help her. 3. Electrolyte imbalance -Her serum electrolytes Na:131 K:3.7 Phosphorous:2.8 M.5 -We will give her one dose of Magnesium sulphate before discharging her. We will try to discharge her by evening today. DVT prophylaxis Code status: Ful code Diet as tolerated Problem List: 1. Acute pancreatitis 2. Alcohol withdrawal 3. Anxiety Pain Ratin Pain Location: na Pain Goal: Remain pain free Pain Plan: na Tomorrow's Labs & Rationales: [facility] 03/16/18 1101: Attending MD Review Statement Attending Statement Attending MD Statement: examined this patient, discuss w/resident/PA/DISTANCE EDUCATION FACULTY LIAISON, agreed w/resident/PA/DISTANCE EDUCATION FACULTY LIAISON, reviewed EMR data (avail), discussed with nursing Attending Assessment/Plan: Pt was seen and evaluated. Chart reviewed. Reports doing better. Tolerating full diet and wants to go home --OK to d/c home today --pt advised to follow up with PPC re: anxiety symptoms and treatment --rest of the plan as per resident's note
[2018-03-16 09:51] LABS: ABSOLUTE BASOPHIL COUNT 0 /CUMM (0.0-0.2); ABSOLUTE EOSINOPHIL COUNT 0.1 /CUMM (0.0-0.7); ABSOLUTE GRANULOCYTE CT 4.9 /CUMM (1.4-6.5); ABSOLUTE LYMPH COUNT 0.9 /CUMM (1.2-3.4); ABSOLUTE MONOCYTE COUNT 0.4 /CUMM (0.10-0.60); BASOPHIL % 0.4 % (0.0-2.0); EOSINOPHIL % 1.5 % (0-5); GRANULOCYTE % 78.6 % (42.2-75.2); HEMATOCRIT 39.5 % (37-47); MEAN CORPUSCULAR HGB CONC 33.8 G/DL (33.0-37.0); MEAN CORPUSCULAR VOLUME 91.7 FL (81.0-99.0); MEAN PLATELET VOLUME 8.6 FL (7.4-10.4); PLATELET COUNT 194 /CUMM (130-400); RBC DISTRIBUTION WIDTH 12.9 % (11.5-14.5); RED BLOOD CELL CT 4.31 /CUMM (4.20-5.40); WHITE BLOOD CELL COUNT 6.3 /CUMM (4.8-10.8)
[2018-03-16 09:58] VITALS: BP 124/70
[2018-03-16] MEDS ORDERED: FOLIC ACID1 M1 PO (11:04)
--- NOTE | 2018-03-16 21:24 | Discharge Summary ---
Visit Information Visit Dates Admission Date: 03/13/18 Discharge Date: 03/16/18 Hospital Course Course Attending Physician: Tab Johnson MD Primary Care Physician: Krishna HAMLIN,[facility] Course: Mr Nieves is a 62 year old woman w/ past medical history of hypertension, anxiety, alcohol abuse, electrolyte abnormalities, recent admit to [facility] 11/22/2017-11/26/2017 for alcohol detox was admitted to the [facility] floor for diagnosis and evaluation of alcohol induced acute pancreatitis. At the time of admission, temperature 98.0, pulse rate 90, blood pressure 162/82 -->144/93, 99% on room air. Pertinent lab findings: WBC 9.3, hemoglobin 14.6, platelet count 248. Sodium 135, potassium 3.4, chloride 94, BUN 7, Cr 0.4 ( low po intake) Bicarbonate 19, anion gap 23 (mild anion gap metabolic acidosis) AST 75, ALT 42, Albumin 4.5 total bilirubin 2.5, calcium 9.3 Lipase 1699 Urine tox negative for opiates, barbiturates, amphetamines, benzodiazepines, cocaine, cannabis. Alcohol 28. Urinalysis revealed multiple hyaline casts. Chest x-ray revealed no acute pulmonary findings. A CT abdomen revealed the following: . Mild inflammatory changes are seen in the region of the pancreatic head .Probable gastric diverticulum at the gastric fundus. The small bowel is normal in caliber. Mild hyperenhancement of the duodenal wall with adjacent inflammation. An abdominal ultrasound showed the following findings: IMPRESSION: 1. Pancreas incompletely visualized. The subtle peripancreatic edema and presumed pancreatitis seen on CT scan is not appreciated on ultrasound. 2. Diffuse hepatic steatosis with mild enlargement of the left lobe of the liver. 3. Complex cystic mass is seen within the mid right kidney. This is not well enough visualized to accurately characterize into the Bosniak system. The mass remains indeterminate in etiology and in the absence of old films, further characterization is warranted. Recommend dedicated renal MRI scan with and without contrast. This can be performed in the nonacute outpatient setting. We treated the patient for the following problems during her hospital stay: 1. Acute pancreatitis; likely alcohol induced -Pancreatitis diagnosed with evidence of inflammation on imaging, serum lipase levels of 1699. -Epigastric and RUQ pain subsided over the next two days. The pain was localised to the back on the 3rd day. The patient had no pain on the day of discharge. -We ensured adequate hydration till she was able to tolerate a regular diet. -We slowly advanced her diet. The patient was on a reguar diet at discharge. 2. Alcohol detox -Her alcohol level on addmission was 28 -She was admitted to [facility] for an alcohol detoxification in November. She says she immediately relapsed because of lack of social support. -She did not display any signs of withdrawal in the hospital. -The patienti was willing to join an alcohol withdrawal support group. We requested a social work consult to help her. 3. Electrolyte imbalance -Her serum electrolytes Na:131 K:4 Phosphorous:1.5, M.5. -We supplemented her for her electrolytes which were corrected at discharge. Allergies: Coded Allergies: NO KNOWN ALLERGIES (06/23/14) Disposition Summary Disposition Principal Diagnosis: Acute Pancreatitis, likely due to alcohol Additional Diagnosis: Electrolyte Imbalance Alcohol Abuse Discharge Disposition: home or self care Discharge Instructions General Discharge Information Code Status: Full Code Patient's Diet: Regular diet Patient's Activity: As tolerated Follow-Up Instructions/Appts: The patient would follow up with her PCP within a week of her discharge. She was requested to schedule an outpatient MRI for an incidental cystic renal mass detected on imaging in the hospital Medications at Discharge Discharge Medications: Continue taking these medications: Amlodipine Besylate (Norvasc) 5 MG TABLET 1 Tablet ORAL DAILY Comments: Last Taken: 03/16/18 Time: 10:00AM Escitalopram Oxalate (Lexapro) 20 MG TABLET 1.5 Tablet ORAL DAILY Comments: Last Taken: 03/16/18 Time: 10:00AM Multivitamin (One Daily Multivitamin) 1 EACH TABLET 1 Tablet ORAL DAILY Qty = 30 Instructions: . Comments: Last Taken:11/26/17 Time:8:25AM NOT GIVEN THIS ADMISSION Start taking the following new medications: Folic Acid (Folic Acid) 1 MG TABLET 1 Milligram ORAL DAILY Days = 30 No Refills Comments: Last Taken: 03/16/18 Time: 10:00AM Copies To: Krishna HAMLIN,He
== END 2018-03-16 16:05 | DRG 439 ==
LOC: ERH 23:24 → ERHI 03-13 06:46 → 2NA 03-13 06:46 → ENRESERV 03-13 07:46 → 2NA 03-13 09:54 → ENPENDDIS 03-16 14:57 → ENTRNSPT 03-16 15:56 → 2NA 03-16 16:05 → EDTRNSPTSTS 03-16 16:08 → EDTRNSPT 03-16 16:08 → CMPTRNSPT 03-16 16:14
PROVIDERS: Emergency Medicine; Hospitalist; Internal Medicine Endocrinology, Diabetes & Metabolism
DX: K85.20 Alcohol induced acute pancreatitis without necrosis or infection (principal); E87.2 Acidosis; E83.42 Hypomagnesemia; K70.10 Alcoholic hepatitis without ascites; F10.20 Alcohol dependence, uncomplicated; E87.6 Hypokalemia; Y90.1 Blood alcohol level of 20-39 mg/100 ml; I10 Essential (primary) hypertension; F41.9 Anxiety disorder, unspecified; F17.210 Nicotine dependence, cigarettes, uncomplicated
CPT/HCPCS: 2NASP; 36592; 71046; 74177; 80307; 81001; 82436; 93005; 93010; 96374; 96375; 97116-GO; 97161-GP; 99291; G0480; J0131; J1644; J2405; J2550; J3490; J7042

== ENCOUNTER 2018-03-21 01:38 | Inpatient (IN) | payer OTHER ==
[2018-03-21] VITALS (9 sets, daily range): BP systolic 114–155; BP diastolic 60–78
[~2018-03-21] VITALS: Ht 160 cm; Wt 67.4 kg
[~2018-03-21 01:38] MED LIST changes: +FOLIC ACID1 M1 PO
[2018-03-21 02:05] LABS: ABSOLUTE BASOPHIL COUNT 0 /CUMM (0.0-0.2); ABSOLUTE EOSINOPHIL COUNT 0 /CUMM (0.0-0.7); ABSOLUTE GRANULOCYTE CT 7.6 /CUMM (1.4-6.5); ABSOLUTE LYMPH COUNT 0.5 /CUMM (1.2-3.4); ABSOLUTE MONOCYTE COUNT 0.8 /CUMM (0.10-0.60); BASOPHIL % 0.1 % (0.0-2.0); EOSINOPHIL % 0 % (0-5); GRANULOCYTE % 84.5 % (42.2-75.2); HEMATOCRIT 40.2 % (37-47); MEAN CORPUSCULAR HGB 31.4 PG (27.0-31.0); MEAN CORPUSCULAR HGB CONC 34.7 G/DL (33.0-37.0); MEAN CORPUSCULAR VOLUME 90.5 FL (81.0-99.0); MEAN PLATELET VOLUME 8.3 FL (7.4-10.4); RBC DISTRIBUTION WIDTH 13.2 % (11.5-14.5); RED BLOOD CELL CT 4.44 /CUMM (4.20-5.40)
[2018-03-21 02:15] LABS: PLATELET COUNT 299 /CUMM (130-400)
--- NOTE | 2018-03-21 04:41 | ED GI/GU/ABDOMINAL COMPLAINT ---
See Addendum History of Present Illness General Chief Complaint: Abdominal Pain/Flank Pain Stated Complaint: BIBA, ABD PAIN Source: patient, old records, EMS Exam Limitations: no limitations Vital Signs & Intake/Output Vital Signs & Intake/Output Vital Signs Date Time Temp Pulse Resp B/P B/P Pulse O2 O2 Flow FiO2 Mean Ox Delivery Rate 03/21 0540 100.4 102 18 155/72 03/21 0539 100.4 102 18 155/72 98 Room Air 03/21 0340 98.9 104 18 150/68 96 Room Air 03/21 0145 Room Air 03/21 0144 97.7 105 18 147/61 03/21 0144 97.7 105 18 147/61 95 Room Air Allergies Coded Allergies: NO KNOWN ALLERGIES (06/23/14) Reconcile Medications Amlodipine Besylate (Norvasc) 5 MG TABLET 1 TAB PO DAILY BP (Reported) Escitalopram Oxalate (Lexapro) 20 MG TABLET 1.5 TAB PO DAILY MENTAL HEALTH ( Reported) Folic Acid 1 MG TABLET 1 MG PO DAILY anemia Multivitamin (One Daily Multivitamin) 1 EACH TABLET 1 TAB PO DAILY supplement . Triage Note: PT BIBA FROM HOME C/O N/V/D. PT REPORTS RECENT ADMISSION X3 DAYS FOR PANCREATITIS. LAST DRINK WAS SUNDAY. PT REPORTS DAILY ETOH CONSUMPTION. DENIES WITHDRAWL SEIZURES. REPORTS DAILY CONSUMPTION "VARIES DAY TO DAY". Triage Nurses Notes Reviewed? yes LMP (ages 10-50): post menopausal ? n Is pt currently ? No Onset: Just prior to arrival Duration: hour(s):, constant, continues in ED, getting worse Timing: recent history Quality/Severity: sharpness, severe, vomiting Location: right upper quadrant Radiation: no radiation Activities at Onset: rest Prior Abdominal Problems: similar symptoms Past Sexual History: Unobtainable at this time Modifying Factors: Worsens With: eating. Associated Symptoms: abdominal pain, loss of appetite, nausea/vomiting HPI: The patient was discharged 5 days prior to admission for alcohol withdrawal and pancreatitis. After discharge she began drinking alcohol again. 1 day prior to admission she developed recurrent right upper quadrant pain nausea vomiting and stopped drinking alcohol. She presents with generalized tremors continued pain nausea vomiting. She denies fever chills diarrhea chest pain cough shortness breath headache dysuria rash bleeding. Past History Travel History Traveled to [place] past 21 day No Medical History Any Pertinent Medical History? see below for history Neurological: NONE EENT: EAR INFECTION Cardiovascular: hypertension Respiratory: NONE Gastrointestinal: pancreatitis Hepatic: NONE Renal: NONE Musculoskeletal: NONE Psychiatric: alcohol dependence, anxiety, depression, Adjustment disorder Endocrine: NONE Blood Disorders: NONE Cancer(s): NONE EFFICIENCY ENGINEER/Reproductive: NONE History of MRSA: No History of VRE: No History of CDIFF: No Surgical History Surgical History: Psychosocial History Who do you live with Patient/Self Services at Home None What is your primary language Russian Tobacco Use: Current Daily Use Daily Tobacco Use Amount/Type: =< 4 Cigarettes daily ETOH Use: alcoholic Family History Family History, If Any: MOTHER (DM HTN). Hx Contributory? No Review of Systems Review of Systems Constitutional: Reports: see HPI, malaise. EENTM: Reports: no symptoms. Respiratory: Reports: no symptoms. Cardiovascular: Reports: no symptoms. GI: Reports: see HPI, abdominal pain, nausea, vomiting. Genitourinary: Reports: no symptoms. Musculoskeletal: Reports: no symptoms. Skin: Reports: no symptoms. Neurological/Psychological: Reports: see HPI, tremors. Hematologic/Endocrine: Reports: no symptoms. Immunologic/Allergic: Reports: no symptoms. All Other Systems: Reviewed and Negative Physical Exam Physical Exam General Appearance: well developed/nourished, alert, awake, anxious, severe distress, thin Head: atraumatic, normal appearance Eyes: Bilateral: normal appearance, PERRL, EOMI, normal inspection. Ears, Nose, Throat, Mouth: hearing grossly normal, moist mucous membrane Neck: normal inspection, supple, full range of motion, normal alignment Respiratory: normal breath sounds, chest non-tender, no respiratory distress, quiet respiration, lungs clear Cardiovascular: regular rate/rhythm, normal peripheral pulses, norml femoral pulses equa Peripheral Pulses: 4+ carotid (R), 4+ carotid (L) Gastrointestinal: normal bowel sounds, soft, tenderness (Mild right upper quadrant) Back: normal inspection, normal range of motion Extremities: normal range of motion, no ligament instability Neurologic/Psych: no motor/sensory deficits, awake, alert, oriented x 3, normal gait, normal mood/affect, property inspector II-XII nml as tested Skin: intact, normal color, warm/dry Core Measures ACS in differential dx? No Sepsis Present: No Sepsis Focused Exam Completed? No Progress Differential Diagnosis: gastritis, pancreatitis, PUD/GERD Plan of Care: Orders Procedure Date/time Status Clear Liquid Diet 03/21 B Active CASE MANAGEMENT CONSULT 03/21 06 Active OXYGEN SETUP (GEN) 03/21 517 Active Saline Lock 03/[address] in observation 03/21 517 Active Vital Signs 03/21 517 Active Activity/Ambulation 03/21 517 Active Code Status 03/21 517 Active CIWA 03/21 207 Active Patient Data 03/21 200 Active MAGNESIUM 03/21 153 Complete LIPASE 03/21 153 Complete ETHANOL 03/21 153 Complete COMPREHENSIVE METABOLIC PANEL 03/21 153 Complete CBC WITHOUT DIFFERENTIAL 03/21 153 Complete AMYLASE 03/21 153 Complete Intake & Output 03/21 143 Active Laboratory Tests 03/21/18 0226: Anion Gap 14, Estimated GFR > 60, BUN/Creatinine Ratio 10.0, Glucose 146 H, Calcium 8.2 L, Magnesium 1.1 L, Total Bilirubin 1.2, AST 110 H, ALT 41, Alkaline Phosphatase 84, Total Protein 7.1, Albumin 3.7, Globulin 3.4, Albumin/ Globulin Ratio 1.1, Amylase 90, Lipase 353 H, Serum Alcohol < 10.0 03/21/18 0155: CBC w Diff MAN DIFF ORDERED, RBC 4.44, MCV 90.5, MCH 31.4 H, MCHC 34.7, RDW 13.2, MPV 8.3, Gran % 84.5 H, Lymphocytes % 6.0 L, Monocytes % 9.4 H, Eosinophils % 0, Basophils % 0.1, Absolute Granulocytes 7.6 H, Segmented Neutrophils 70, Band Neutrophils 8 H, Absolute Lymphocytes 0.5 L, Lymphocytes 12 L, Monocytes 10 H, Absolute Monocytes 0.8 H, Absolute Eosinophils 0, Absolute Basophils 0, Platelet Estimate ADEQUATE, Normocytic RBCs VERIFIED, Normochromic RBCs VERIFIED, Fld Total RBCs Counted 100 Initial ED EKG: none Hand-Off Endorsed To: Payton HAMLIN,Charanjit Pisano Endorsed Time: 0700 Pending: other (KRUNAL, case management) Departure Departure Disposition: STILL A PATIENT Condition: Stable Clinical Impression Primary Impression: Alcoholic pancreatitis Secondary Impressions: Alcohol dependence with withdrawal Referrals: He Keller MD (PCP/Family) Departure Forms: Customer Survey General Discharge Information ED Attending Observation Initial Observation Note: I have seen and personally examined JOSSELINE HILARIO on 03/21/18 at 2AM. I agree with the current emergency department documentation. The disposition (admission or discharge) is uncertain at this time, she needs a period of observation for the following reason(s): alcohol pancreatitis, dependence and withdrawal The ED Nurse caring for this patient has been personally informed as to what the patient is being observed for.
--- NOTE | 2018-03-21 09:56 | RADIOLOGY REPORT ---
EXAMINATION: XR PORTABLE CHEST CLINICAL INFORMATION: Fever and infiltrate. COMPARISON: Chest x-ray 03/13/2018. TECHNIQUE: Portable frontal 80 degrees semierect view of the chest was obtained. FINDINGS: The patient is slightly rotated. The lung baltazar are well expanded and appear clear bilaterally. The cardiac silhouette is normal. There are no pleural effusions or pneumothorax. The central pulmonary vasculature is normal. The hilar regions appear normal. There are no acute osseous findings. IMPRESSION: 1. There are no acute cardiopulmonary findings.
--- NOTE | 2018-03-21 14:04 | CT SCAN REPORT ---
EXAMINATION: CT ABDOMEN AND PELVIS WITH CONTRAST CLINICAL INFORMATION: Recurrent pancreatitis and fever. COMPARISON: CT scan of the abdomen and pelvis an ultrasound abdomen 03/13/2018. TECHNIQUE: Multidetector volumetric imaging was performed of the abdomen and pelvis following IV administration of 95 mL of Optiray 320 intravenous contrast. Sagittal and coronal reformatted images were obtained on the technologist's workstation. DLP: 242.64 mGy-cm FINDINGS: LUNG BASES: There are mild atelectatic changes at the left base anteriorly. There are no pericardial or pleural effusions. LIVER, GALLBLADDER, AND BILIARY TREE: The liver is normal in size and contour. It redemonstrates low attenuation diffusely consistent with hepatic steatosis. The gallbladder is unremarkable with no evidence of radiopaque gallstones, gallbladder wall thickening, or obvious pericholecystic inflammatory changes. PANCREAS: The inflammatory changes seen around the pancreatic head appear to have resolved compared to the prior study. There is no free peripancreatic fluid, and there are no peripancreatic cysts. SPLEEN: Unremarkable. ADRENAL GLANDS: The adrenal glands are not enlarged. KIDNEYS AND URETERS: The kidneys are normal in size, shape and overall attenuation. There is been interval increase in the area of low attenuation at the upper pole of the right kidney, which now measures 2 cm in diameter, increased from 1.2 cm on the prior CT study. The contents of this area are greater than simple fluid. There is no hydronephrosis. There are no radiodense renal calculi. There is no perinephric stranding. The ureters are not dilated and there are no radiodense ureteric calculi. BLADDER: The urinary bladder is partially distended and appears unremarkable. GASTROINTESTINAL TRACT: The study redemonstrates the likely gastric diverticulum. There is a loop of small bowel in the left abdomen which is minimally prominent with a fluid level. The previously noted increased enhancement of the duodenum has resolved. The appendix is not definitively identified, but there is no evidence of pericecal inflammatory change. There is mild stool within the large bowel. There is no evidence of obstruction. Mild apparent thickening of the colonic wall in the sigmoid region is nonspecific. ABDOMINAL WALL: No significant hernia is appreciated. LYMPH NODES: There is no pelvic or retroperitoneal lymphadenopathy. VASCULAR: There are atheromatous calcifications of the aorta. No aneurysms are demonstrated. PELVIC VISCERA: The uterus appears normal. There are no pelvic masses or free pelvic fluid. OSSEOUS STRUCTURES: There are no acute osseous findings. There are no significant spondylitic changes. IMPRESSION: 1. There has been interval increase in the area of low attenuation at the upper pole of the right kidney, with contents greater than simple fluid. In view of its change in size over only 8 days, it may be consistent with an area of developing pyelonephritis, and should be clinically correlated. 2. The peripancreatic inflammatory changes have resolved compared to the prior study. 3. There is persistent hepatic steatosis. 4. Mild thickening of the colon wall in the sigmoid region is nonspecific. There is a loop of small bowel in the left abdomen which is minimally prominent with a fluid level, which may be consistent with a small focal area of ileus.
--- NOTE | 2018-03-21 17:52 | History & Physical ---
SedrickSancho 03/21/18 5561: General Information and HPI History of Present Illness: Josseline Hilario is a 62 YO female with a PMHx. of alcohol dependence, anxiety, depression, and HTN who presents to the ED with a chief complaint of "abdominal pain, left-sided." Patient states that yesterday she began to feel intermittent, sharp left-sided abdominal pain that worsened with movement and started approx. after her last drink around noon time. Patient states the pain would last a few minutes and radiate to her back. Patient rates her pain as variable with the worst rated as 7 out of 10 abdominal pain. Patient also reports that occasionally she has trouble making it all the way to the bathroom and reports accidents with urinary leakage. Patient further states her last drink was around lunch time yesterday when she drank a rum and a coke. Patient also reports fevers, n/v, headaches but otherwise denies any dysuria and falls. 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 Patient further reports she started drinking alcohol when she was a teenager and first had been admitted for alcohol related issues 7 years ago at [facility] after undergoing her divorce. Patient states she has been to [facility] twice total for alcohol related issues. Patient states she smokes approx. 2 cigarettes per day and has cut down her smoking over the past three years when she had previously been smoking heavily around 3 packs/day. Patient states she started smoking when she was 17 years old. Patient otherwise denies any illicit drug usage. 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 Psychosocial History Who Do You Live With? self Services at Home: None Primary Language: Nepali Smoking Status: Current Everyday Smoker ETOH Use: alcoholic Functional Ability ADLs Independent: dressing, eating, toileting, bathing. Ambulation: independent IADLs Independent: shopping, housework, finances, food prep, telephone, transportation , medication admin. Sexual History Past Sexual History Unobtainable at this time Review of Systems Review of Systems Constitutional: Reports: chills, fever. Cardiovascular: Denies: chest pain, palpitations. Respiratory: Denies: cough, short of breath. GI: Reports: nausea, vomiting. Denies: diarrhea. Genitourinary: Denies: dysuria, pain (urinary incontinence). Musculoskeletal: Reports: back pain. Denies: joint pain. Neurological/Psychological: Reports: headache. Exam & Diagnostic Data Last 24 Hrs of Vital Signs/I&O Vital Signs Date Time Temp Pulse Resp B/P B/P Pulse O2 O2 Flow FiO2 Mean Ox Delivery Rate 03/21 2000 Room Air 03/21 1956 100.9 03/21 1954 100.9 128 32 120/70 98 Room Air 03/21 194 100.9 124 32 120/70 03/21 1740 98.9 92 16 03/21 1740 98.9 92 16 98 Room Air 03/21 1620 101.3 98 16 132/78 03/21 1619 101.3 98 18 132/78 98 Room Air 03/21 1500 103.0 104 18 138/63 08/16 1456 103.0 104 18 138/63 98 Room Air 16 1320 100.7 111 18 136/65 95 Room Air 03/21 1210 99.9 114 18 135/61 /16 1210 99.9 114 18 135/61 97 Room Air 03/21 1030 100.3 / 1030 100.3 104 18 114/60 /16 1029 100.3 104 18 114/60 97 Room Air 03/21 0929 103.2 122 18 /16 0926 103.2 /16 0926 103.2 /16 0825 98.4 104 18 152/72 08/16 0825 98.4 104 18 152/72 97 Room Air /16 0747 98.4 111 18 169/72 98 /16 0540 100.4 102 18 155/72 08/16 0539 100.4 102 18 155/72 98 Room Air 16 0340 98.9 104 18 150/68 96 Room Air 03/21 0145 Room Air / 0144 97.7 105 18 147/61 08/16 0144 97.7 105 18 147/61 95 Room Air Intake & Output 03/21 1600 03/21 0800 03/21 0000 Intake Total 1000 1000 Output Total Balance 1000 1000 Intake, IV 1000 1000 Intake, Oral 0 Patient 106 lb Weight Physical Exam General Appearance Alert, Oriented X3, Cooperative, No Acute Distress Skin No Rashes, No Breakdown HEENT Atraumatic, PERRLA Neck Supple, No JVD Cardiovascular blowing murmur noted, tachy Lungs decreased breath sounds Abdomen Soft, No Tenderness Neurological Normal Speech Extremities No Edema, Normal Pulses Assessment/Plan Assessment: CT ABD & PELVIS W IV CONTRAST - 1. There has been interval increase in the area of low attenuation at the upper pole of the right kidney, with contents greater than simple fluid. In view of its change in size over only 8 days, it may be consistent with an area of developing pyelonephritis, and should be clinically correlated. 2. The peripancreatic inflammatory changes have resolved compared to the prior study. 3. There is persistent hepatic steatosis. 4. Mild thickening of the colon wall in the sigmoid region is nonspecific. There is a loop of small bowel in the left abdomen which is minimally prominent with a fluid level, which may be consistent with a small focal area of ileus. UA - Nitrite (H) Leukocyte Est. (Neg.) Mg 1.1 AST 110 ALT 41 WBC 9.0 (nl) Bands 8 (H) 62 YO female with a PMHx. of alcohol dependence, anxiety, depression, and HTN who presents to the ED with a chief complaint of "abdominal pain, left-sided" of one day onset. Etiology in this case with reported symptoms of left-sided abdominal pain and associated fevers,tachycardia, and bandemia in correlation with a CT abd/pelvis with concern for pyelonephritis is likely related to a infectious/inflammatory disease of renal pathology. A positive urine culture demonstrating bacteria, likely gram negative, in this setting would make Pyelonephritis as the chief concern. Differential diagnosis also includes PID, cystitis, acute pancreatitis and pelvic pain syndrome among others. #Pyelonephritis, confirm with Urine/Blood Cx. - Admit to general medicine floor for monitoring and assessment of vitals - Pt. given 1g Ceftriaxone IV in ED; follow up with Urine and Blood cultures - D5 1/2 NS 150 cc/hr - Pain management (Tylenol PO, Tylenol IV, Percocet 1 tab) according to prn pain scales - Follow up CBC/BEP in AM #Hypomagnesemia -Replete Mg as needed and follow up labs in AM -Mg 1.1; Mg Sulfate IV q2h (2 bags) #Alcohol Dependence -CIWA -Ativan q1p #Home medications -Continue home medications as required DVT PPx. FC As Ranked By This Provider Problem List: 1. Pyelonephritis 2. Alcohol dependence with withdrawal 3. Hypomagnesemia 4. Anxiety Core Measures/Misc (04/22) Acute Coronary Syndrome ACS Diagnosis: No Congestive Heart Failure Congestive Heart Failure Diagnosis No Cerebrovascular Accident CVA/TIA Diagnosis: No VTE (View Protocol) VTE Risk Factors Acute Medical Illness No Mechanical VTE Prophylaxis d/t N/A MechProphylax Ordered No VTE Pharm Prophylaxis d/t NA PharmProphylax ordered Sepsis (View protocol) Sepsis Present: No If YES complete Sepsis Event Note If YES complete Sepsis Event Note Luis Angel Rittre 03/21/18 1759: Core Measures/Misc (04/22) Sepsis (View protocol) If YES complete Sepsis Event Note If YES complete Sepsis Event Note Resident Review Statement Resident Statement: examined this patient, discussed with administration internship, agreed with administration internship Other Findings: This is a 62-year-old female, current active smoker, history of alcohol dependence (no alcohol related seizures), anxiety, depression, hypertension, recently admitted for alcohol withdrawal and alcohol related pancreatitis discharge on March 16, comes back in with chief complain of left upper quadrant pain associated with nausea and vomiting along with generalized weakness. On arrival, as per the emergency medicine they mentioned that the pain was in the right upper quadrant, however upon our examination and history taking, she mentioned left upper quadrant pain, sharp in nature, intermittent comes and goes , at its worst it is 7 out of 10, has started since yesterday, no precipitating event or trauma, minutes low it is 2-3 out of 10. She says that she was drinking yesterday when the pain started coming. Nothing makes it better, she did not try any [id number]-[id number] medications. She didn't feel like drinking anymore as that made the pain worse. She also had associated nausea, dry heaving. Her last drink was the 20 March - afternoon which is 1 day prior to today's presentation. She has been drinking heavily for at least last 7 years, has had multiple admissions previously at [facility] as well as couple of admissions at [facility] related to alcohol withdrawal. Her first reading was when she was 17, however she started drinking heavily after her divorce 6-7 years ago. Denied any history related to alcohol withdrawal seizures. She denied any fever or chills, chest pain, shortness of breath, dysuria. Review of system positive for nausea, anxiety, diaphoresis. Physical exam alert oriented 3. HEENT PERRLA. CVS tachycardia present, no murmur. RS air entry bilaterally equal, mild crackles heard over the lungs. PA : Bowel sounds present, no organomegaly, however tenderness present in the left upper quadrant on deep palpation. Lower extremity, no edema, cyanosis or clubbing. Vitals Tmax of 103.2, HR of 98, respiration of 16, blood pressure 132/78, saturations 98% on room air. No white count, H/H of 13.9/40.2, platelet of 299, 8 bands. Sodium 135, potassium 3.6, BUN/creatinine 4/0.4, glucose of 146. Calcium of 8.2, magnesium of 1.1. Total bilirubin 1.2, AST of 110, ALT of 41, alkaline phosphatase of 84. Lipase of 353 (previous value on previous admission has been 1699) Urine and blood cultures awaited. Chest x-ray did not show any acute cardiopulmonary findings. CT abdominal and pelvis shows area of low attenuation at the upper pole of the right kidney with contents greater than simple fluid possibly consistent with area of developing pyelonephritis. With the background of high-grade fever of 103.2, no white count but 8 bands, and repeated spiking in spite of Tylenol, there is a high suspicion of infective etiology and with CT abdominal and pelvis showing low attenuation at the right upper pole of the kidney, most likely the source seems to be pyelonephritis, even though she does not per se complain of any burning of urine. We will also treat her for alcohol withdrawal, her last drink was 24 hours prior to presentation, for now we will keep her on when necessary ciwA, however if signs of withdrawal at present, will switch to scheduled Ativan taper. Problem list along with assessment and plan. Problem #1 sepsis possible source pyelonephritis, right kidney. Problem #2 alcohol withdrawal. Problem #3 hypomagnesemia. Problem #4 history of hypertension. Problem #5 anxiety/depression * Admit the patient to general medicine floor. * Continue to monitor vitals, continue to monitor temperature. * Continue to monitor intakes and outputs, continue to follow blood culture, urine culture, IV ceftriaxone, UA positive for nitrites, 1-3 WBCs. * Continue to monitor his ciwa * When necessary Ativan per ciwa * Continue banana bag. * Continue D5 half normal saline at 100 mL per hour. * Continue her antihypertensive medication at home dosage. * Multivitamin, thiamine and folate by mouth once able to tolerate by mouth. * Continue to monitor magnesium, potassium and supplement as necessary. * Continue to maintain fall/seizure precautions. Full code. Pain pathway. DVT prophylaxis with Alps and Robin Rowley MD,[place] 03/21/18 3754: General Information and HPI MD Statement: I have seen and personally examined JOSSELINE HILARIO and documented this H&P. The patient is a 62 year old F who presented with a patient stated chief complaint of [abdominal pain]. Allergies/Medications Allergies: Coded Allergies: NO KNOWN ALLERGIES (06/23/14) Home Med list Amlodipine Besylate (Norvasc) 5 MG TABLET 1 TAB PO DAILY BP (Reported) Escitalopram Oxalate (Lexapro) 20 MG TABLET 1.5 TAB PO DAILY MENTAL HEALTH ( Reported) Folic Acid 1 MG TABLET 1 MG PO DAILY anemia Multivitamin (One Daily Multivitamin) 1 EACH TABLET 1 TAB PO DAILY supplement . Past History Medical History EENT: EAR INFECTION Cardiovascular: hypertension Gastrointestinal: pancreatitis Psychiatric: alcohol dependence, anxiety, depression, Adjustment disorder Surgical History Surgical History: Past Family/Social History Psychosocial History Smoking Status: Current Everyday Smoker ETOH Use: alcoholic Illicit Drug Use: denies illicit drug use Employment History Employment Disability Review of Systems Review of Systems Constitutional: Reports: see HPI. Exam & Diagnostic Data Last 24 Hrs of Vital Signs/I&O Vital Signs Date Time Temp Pulse Resp B/P B/P Pulse O2 O2 Flow FiO2 Mean Ox Delivery Rate 03/21 2000 Room Air 03/21 1956 100.9 03/21 1954 100.9 128 32 120/70 98 Room Air 03/21 1945 100.9 124 32 120/70 03/21 1740 98.9 92 16 03/21 1740 98.9 92 16 98 Room Air 03/21 1620 101.3 98 16 132/78 03/21 1619 101.3 98 18 132/78 98 Room Air 08/16 1500 103.0 104 18 138/63 08/16 1456 103.0 104 18 138/63 98 Room Air /16 1320 100.7 111 18 136/65 95 Room Air 08/16 1210 99.9 114 18 135/61 08/16 1210 99.9 114 18 135/61 97 Room Air /16 1030 100.3 08/16 1030 100.3 104 18 114/60 08/16 1029 100.3 104 18 114/60 97 Room Air / 0929 103.2 122 18 08/16 0926 103.2 08/16 0926 103.2 08/16 0825 98.4 104 18 152/72 08/16 0825 98.4 104 18 152/72 97 Room Air /16 0747 98.4 111 18 169/72 98 /16 0540 100.4 102 18 155/72 08/16 0539 100.4 102 18 155/72 98 Room Air / 0340 98.9 104 18 150/68 96 Room Air 03/21 0145 Room Air 03/21 0144 97.7 105 18 147/61 / 0144 97.7 105 18 147/61 95 Room Air Intake & Output 03/21 1600 08/16 0800 16 0000 Intake Total 1000 1000 Output Total Balance 1000 1000 Intake, IV 1000 1000 Intake, Oral 0 Patient 106 lb Weight Physical Exam General Appearance Alert, Oriented X3, Cooperative, No Acute Distress Skin No Rashes, No Breakdown Sepsis Skin Exam (color): Normal for Ethnicity HEENT Atraumatic, PERRLA Neck Supple, No JVD Lymphatic Axillary nl, Cervical nl Cardiovascular blowing murmur noted, tachy Lungs decreased breath sounds Abdomen Soft, No Tenderness Neurological Normal Speech Extremities No Edema, Normal Pulses Sepsis Peripheral Pulse Location: Dorsalis Pedis Sepsis Peripheral Pulse Exam: Normal Sepsis Cap Refill Exam: <2 Sec Core Measures/Misc (04/22) Sepsis (View protocol) If YES complete Sepsis Event Note If YES complete Sepsis Event Note Attending MD Review Statement Attending Statement Attending MD Statement: examined this patient, discuss w/resident/PA/HAND COREMAKER, agreed w/resident/PA/HAND COREMAKER, reviewed EMR data (avail), amended to note Attending Assessment/Plan: This patient is a 62-year-old female with a significant past medical history for alcohol dependence, anxiety, depression, hypertension, recently admitted for alcohol withdrawal and alcohol related pancreatitis discharge on March 16, presents with a chief complain of left upper quadrant pain associated with nausea and vomiting and generalized weakness. Upon evaluation in the ED she is found to have a fever as high as 103.2, HR 122, normal WBC count, Mg 1.1, AST 110, Lipase 353, CT ABD/PELV - There has been interval increase in the area of low attenuation at the upper pole of the right kidney, with contents greater than simple fluid. Inview of its change in size over only 8 days, it may be consistent with an area of developing pyelonephritis. The patient will be placed in observation for pyelonephritis. Started on Ceftriaxone with urine and blood cultures pending. WIll need to keep on CIWA protocol. FULL CODE.
[2018-03-22] VITALS (7 sets, daily range): BP systolic 90–118; BP diastolic 50–80
--- NOTE | 2018-03-22 07:22 | PN- Housestaff ---
Felecia Miller 03/22/18 0721: Subjective Follow-up For: Acute pyleonephritis Subjective: Patient was seen and examined at bedside. She says she feels better. She reports kale the pain is down to a 4/10. She does want to quit alcohol and is interested in enroling in a programme on discharge. She also reports feeling dizzy with fever and chills. Denies nausea, vomiting, cough, shortness of breath, headache or palpitations. Review of Systems Constitutional: Reports: see HPI. Objective Last 24 Hrs of Vital Signs/I&O Vital Signs Date Time Temp Pulse Resp B/P B/P Pulse O2 O2 Flow FiO2 Mean Ox Delivery Rate 03/22 1019 98.2 98 18 118/80 97 Room Air 03/22 0858 112 92/50 03/22 0619 99.3 112 20 92/50 97 Room Air 03/22 0524 98.5 106 18 98/58 95 Room Air 03/22 0500 98.5 03/22 0312 101.4 03/22 0230 101.4 120 16 96/52 94 Room Air 03/21 2350 98.8 03/21 2257 100 24 118/68 03/21 2115 98.3 03/21 2000 Room Air 03/21 1956 100.9 03/21 1954 100.9 128 32 120/70 98 Room Air 03/21 1945 100.9 124 32 120/70 03/21 1740 98.9 92 16 03/21 1740 98.9 92 16 98 Room Air 03/21 1620 101.3 98 16 132/78 03/21 1619 101.3 98 18 132/78 98 Room Air 03/21 1500 103.0 104 18 138/63 03/21 1456 103.0 104 18 138/63 98 Room Air Intake & Output 03/22 1600 03/22 0800 03/22 0000 Intake Total 1000 600 Output Total 300 200 Balance -300 800 600 Intake, IV 1000 600 Intake, Oral 0 Output, Urine 300 200 Patient 142 lb Weight Weight Bed scale Measurement Method Physical Exam General Appearance: Alert, Oriented X3, Cooperative, No Acute Distress Skin: No Rashes Neck: Supple Cardiovascular: Regular Rate, Normal S1, Normal S2, systolic murmur Lungs: Clear to Auscultation Abdomen: Normal Bowel Sounds, Soft, No Tenderness Extremities: No Edema, Normal Pulses Vascular: Pulses Symmetrical Assessment/Plan Assessment: CT ABD & PELVIS W IV CONTRAST - 1. There has been interval increase in the area of low attenuation at the upper pole of the right kidney, with contents greater than simple fluid. In view of its change in size over only 8 days, it may be consistent with an area of developing pyelonephritis, and should be clinically correlated. 2. The peripancreatic inflammatory changes have resolved compared to the prior study. 3. There is persistent hepatic steatosis. 4. Mild thickening of the colon wall in the sigmoid region is nonspecific. There is a loop of small bowel in the left abdomen which is minimally prominent with a fluid level, which may be consistent with a small focal area of ileus. 62 YO female with a PMHx. of alcohol dependence, anxiety, depression, and HTN who presented to the ED with a chief complaint of "abdominal pain, left-sided" of one day onset. Etiology in this case with reported symptoms of left-sided abdominal pain and associated fevers,tachycardia, and bandemia in correlation with a CT abd/pelvis with concern for pyelonephritis is likely related to a infectious/inflammatory disease of renal pathology. A positive urine culture demonstrating bacteria, likely gram negative, in this setting would make Pyelonephritis as the chief concern. Differential diagnosis also includes PID, cystitis, acute pancreatitis and pelvic pain syndrome among others. The patient has been hypotensive since morning. She has had tachypena, tachycardia, low blood pressure. She had high grade fever on presentation. She has no leukocytosis. She does not fulfill sepsis criteria all at once. However, she is at a significant risk of impending sepsis, possibly even septic shock. We would monitor her closely with strict I/O charting and keep low threshold of upgrading her care. UA - Nitrite (H) Leukocyte Est. (Neg.) Mg 1.1 AST 110 ALT 41 WBC 9.8 (nl) Bands 8 (H) Her kidney function at present is stable with her Creatinine at 0.4 and BUN is 7. 1. Pyelonephritis - Diagosis questionable pending blood culture and urine culture reports -Blood culture negative on Day 1. Urine culture contaminated. Sent again. will follow up report - Pt. being given 1g Ceftriaxone IV -She was given 500ml bolus NS, maintainence fluids @100cc/hr - Pain management (Tylenol PO, Tylenol IV, Percocet 1 tab) according to prn pain scales - Trend CBC 2.Hypomagnesemia -Repleted -Repeat labs at 18:00 3.Alcohol Dependence -CIWA -Ativan q1p 4. Hypokalemia - Potassium low at 2.4 -Repleted. Will repet electrolytes at 18:00 5. Home medications -Continue home medications as required DVT PPx. FC Problem List: 1. Alcohol withdrawal delirium 2. Hypokalemia 3. Hypomagnesemia 4. Alcoholic hepatitis 5. Pyelonephritis 6. Abnormal liver function test 7. Hypotension 8. Tachycardia Pain Ratin Pain Location: abdomen Pain Goal: Pain 4 or less Pain Plan: pathway Tomorrow's Labs & Rationales: cbc and bep Alex,Tab 03/22/18 1053: Attending MD Review Statement Attending Statement Attending MD Statement: examined this patient, discuss w/resident/PA/SIGNAL WIRER, agreed w/resident/PA/SIGNAL WIRER, discussed with family, reviewed EMR data (avail), discussed with nursing, discussed with case mgmt, reviewed images, amended to note Attending Assessment/Plan: 62-year-old female with a significant past medical history for alcohol dependence, anxiety, depression, hypertension, recently admitted for alcohol withdrawal and alcohol related pancreatitis discharge on March 16, presents with a chief complain of left upper quadrant pain associated with nausea and vomiting and generalized weakness with acute pyelonephritis meeting sepsis like criteria. Overnight she had fever Tmax 101 BP borderline and mild hypotension with tachycardia. WBC 9 Continue with Ceftriaxone with urine and blood cultures pending. Check LA. contnue with maintenance fluids. hypokalemia replace and recheck WIll need to keep on CIWA protocol. FULL CODE.
[2018-03-22 12:36] LABS: ABSOLUTE BASOPHIL COUNT 0 /CUMM (0.0-0.2); ABSOLUTE EOSINOPHIL COUNT 0 /CUMM (0.0-0.7); ABSOLUTE LYMPH COUNT 0.4 /CUMM (1.2-3.4); ABSOLUTE MONOCYTE COUNT 0.4 /CUMM (0.10-0.60); BASOPHIL % 0 % (0.0-2.0); EOSINOPHIL % 0 % (0-5); GRANULOCYTE % 92.1 % (42.2-75.2); MEAN CORPUSCULAR HGB 31.9 PG (27.0-31.0); MEAN CORPUSCULAR HGB CONC 34.7 G/DL (33.0-37.0); MEAN CORPUSCULAR VOLUME 91.9 FL (81.0-99.0); MEAN PLATELET VOLUME 8.8 FL (7.4-10.4); RBC DISTRIBUTION WIDTH 13.8 % (11.5-14.5); WHITE BLOOD CELL COUNT 9.8 /CUMM (4.8-10.8)
[2018-03-22 12:46] LABS: HEMATOCRIT 33.1 % (37-47)
[2018-03-22 13:00] LABS: PLATELET COUNT 129 /CUMM (130-400)
[2018-03-23] VITALS (7 sets, daily range): BP systolic 106–142; BP diastolic 60–76
--- NOTE | 2018-03-23 08:50 | PN- Housestaff ---
See Addendum Subjective Follow-up For: Acute pyleonephritis Subjective: I visited the patient this morning, she was lying back in her bed, alert and oriented x3, in no acute distress. She denies any chest pain, shortness of breath, palpitation, lightheadedness, dizziness. She had abdominal pain, nausea. Review of Systems Constitutional: Reports: see HPI. Objective Last 24 Hrs of Vital Signs/I&O Vital Signs Date Time Temp Pulse Resp B/P B/P Pulse O2 O2 Flow FiO2 Mean Ox Delivery Rate 03/23 1339 98.0 100 18 142/70 90 Room Air 03/23 1041 97 122/70 03/23 0638 98.9 99 20 106/76 03/23 0553 98.9 99 20 106/76 95 Room Air 03/23 0130 99.1 95 20 110/70 95 Room Air 03/22 2158 101.0 03/22 2130 101.2 107 18 112/60 96 Room Air 03/22 1730 98.2 99 20 90/60 97 Room Air Intake & Output 03/23 1600 03/23 0800 03/23 0000 Intake Total 800 600 Output Total 400 400 201 Balance -400 400 399 Intake, IV 800 500 Intake, Oral 100 Number 1 Bowel Movements Output, Stool 1 Output, Urine 400 400 200 Patient 149 lb 149 lb Weight Physical Exam General Appearance: Alert, Oriented X3, Cooperative, No Acute Distress Skin: No Rashes Skin Temp/Moisture Exam: Warm/Dry Sepsis Skin Exam (color): Normal for Ethnicity HEENT: Atraumatic Cardiovascular: Regular Rate, Normal S1, Normal S2 Lungs: Clear to Auscultation, Normal Air Movement Abdomen: Normal Bowel Sounds, Soft, Tenderness in epigastric area Neurological: Normal Speech Extremities: No Clubbing, No Cyanosis, Normal Pulses Assessment/Plan Assessment: CT ABD & PELVIS W IV CONTRAST - 1. There has been interval increase in the area of low attenuation at the upper pole of the right kidney, with contents greater than simple fluid. In view of its change in size over only 8 days, it may be consistent with an area of developing pyelonephritis, and should be clinically correlated. 2. The peripancreatic inflammatory changes have resolved compared to the prior study. 3. There is persistent hepatic steatosis. 4. Mild thickening of the colon wall in the sigmoid region is nonspecific. There is a loop of small bowel in the left abdomen which is minimally prominent with a fluid level, which may be consistent with a small focal area of ileus. 62 YO female with a PMHx. of alcohol dependence, anxiety, depression, and HTN who presented to the ED with a chief complaint of "abdominal pain, left-sided" of one day onset. Etiology in this case with reported symptoms of left-sided abdominal pain and associated fevers,tachycardia, and bandemia in correlation with a CT abd/pelvis with concern for pyelonephritis is likely related to a infectious/inflammatory disease of renal pathology. A positive urine culture demonstrating bacteria, likely gram negative, in this setting would make Pyelonephritis as the chief concern. Differential diagnosis also includes PID, cystitis, acute pancreatitis and pelvic pain syndrome among others. The patient has been hypotensive since morning. She has had tachypena, tachycardia, low blood pressure. She had high grade fever on presentation. She has no leukocytosis. She does not fulfill sepsis criteria all at once. However, she is at a significant risk of impending sepsis, possibly even septic shock. We would monitor her closely with strict I/O charting and keep low threshold of upgrading her care. UA - Nitrite (H) Leukocyte Est. (Neg.) Mg 1.1 AST 110 ALT 41 WBC 9.8 (nl) Bands 8 (H) Her kidney function at present is stable with her Creatinine at 0.4 and BUN is 7. 1. Pyelonephritis - Diagosis questionable pending blood culture and urine culture reports -Blood culture negative on Day 1. Urine culture contaminated. Sent again. will follow up report - Pt. being given 1g Ceftriaxone IV -She was given 500ml bolus NS, maintainence fluids @100cc/hr - Pain management (Tylenol PO, Tylenol IV, Percocet 1 tab) according to prn pain scales - Trend CBC 2.Hypomagnesemia -Repleted -Repeat labs at 18:00 3.Alcohol Dependence -CIWA -Ativan q1p 4. Hypokalemia - Potassium low at 2.4, she had one more episode of low potassium of 2.4, could not tolerate p.o. potassium due to nausea, gave IV potassium. -Repleted. Will repet electrolytes at 18:00 5. Home medications -Continue home medications as required DVT PPx. FC Problem List: 1. Alcohol withdrawal delirium 2. Hypokalemia 3. Hypomagnesemia 4. Alcoholic hepatitis 5. Pyelonephritis 6. Abnormal liver function test 7. Hypotension 8. Tachycardia Pain Ratin Pain Location: Abdomen Pain Goal: Pain 4 or less Pain Plan: Pathway Tomorrow's Labs & Rationales: As indicated
[2018-03-23 10:11] LABS: ABSOLUTE BASOPHIL COUNT 0 /CUMM (0.0-0.2); ABSOLUTE EOSINOPHIL COUNT 0 /CUMM (0.0-0.7); ABSOLUTE GRANULOCYTE CT 6.2 /CUMM (1.4-6.5); ABSOLUTE LYMPH COUNT 0.3 /CUMM (1.2-3.4); ABSOLUTE MONOCYTE COUNT 0.4 /CUMM (0.10-0.60); BASOPHIL % 0.2 % (0.0-2.0); EOSINOPHIL % 0.3 % (0-5); GRANULOCYTE % 88.9 % (42.2-75.2); HEMATOCRIT 33.3 % (37-47); MEAN CORPUSCULAR HGB 31.4 PG (27.0-31.0); MEAN CORPUSCULAR HGB CONC 34.1 G/DL (33.0-37.0); MEAN CORPUSCULAR VOLUME 92.1 FL (81.0-99.0); MEAN PLATELET VOLUME 8.9 FL (7.4-10.4); PLATELET COUNT 112 /CUMM (130-400); RBC DISTRIBUTION WIDTH 13.3 % (11.5-14.5); RED BLOOD CELL CT 3.61 /CUMM (4.20-5.40)
[2018-03-24] VITALS (8 sets, daily range): BP systolic 90–120; BP diastolic 56–68
--- NOTE | 2018-03-24 08:26 | PN- Housestaff ---
See Addendum Subjective Follow-up For: Pyelonephritis Subjective: Patient was seen and examined at bedside at today. She states she feels "lousy" today. Her pain is between a 7-8. She reports she feels nauseous and has had 4 loose bowel movements since morning today. She also complains that she has been coughing and she feels she has a "chest cold". Denies fever, chills, vomiting, dizziness or ligihtheadedness. Review of Systems Constitutional: Reports: see HPI. Objective Last 24 Hrs of Vital Signs/I&O Vital Signs Date Time Temp Pulse Resp B/P B/P Pulse O2 O2 Flow FiO2 Mean Ox Delivery Rate 03/24 1123 115 90/58 03/24 0645 98.7 87 20 120/68 94 Room Air 03/24 0600 98.7 87 20 120/68 03/23 2159 98.4 90 20 124/60 95 / 1600 92 Room Air 03/23 1400 98.0 100 18 142/70 03/23 1339 98.0 100 18 142/70 90 Room Air Intake & Output 03/24 1600 03/24 0800 03/24 0000 Intake Total 950 1050 Output Total 100 Balance -730 064 6297 Intake, IV 850 800 Intake, Oral 100 250 Number 2 2 Bowel Movements Output, Urine 100 Physical Exam General Appearance: Alert, Oriented X3, Cooperative, Mild Distress Skin: No Rashes Skin Temp/Moisture Exam: Warm/Dry Sepsis Skin Exam (color): Normal for Ethnicity Neck: Supple Cardiovascular: Regular Rate, Normal S1, Normal S2 Lungs: Clear to Auscultation, Normal Air Movement Abdomen: Normal Bowel Sounds, Soft, Mild tenderness in the LLQ Extremities: No Edema, Normal Pulses Vascular: Normal Pulses Assessment/Plan Assessment: CT ABD & PELVIS W IV CONTRAST - 1. There has been interval increase in the area of low attenuation at the upper pole of the right kidney, with contents greater than simple fluid. In view of its change in size over only 8 days, it may be consistent with an area of developing pyelonephritis, and should be clinically correlated. 2. The peripancreatic inflammatory changes have resolved compared to the prior study. 3. There is persistent hepatic steatosis. 4. Mild thickening of the colon wall in the sigmoid region is nonspecific. There is a loop of small bowel in the left abdomen which is minimally prominent with a fluid level, which may be consistent with a small focal area of ileus. 62 YO female with a PMHx. of alcohol dependence, anxiety, depression, and HTN is admitted to the [facility] for the evaluation anf treatment of presumed pyelonephritis. Her first set of urine cultures were contaminated. Awaiting results on a fresh urine culture. Blood cultures are negative. The patient has been hypotensive since morning. She has had tachypena, tachycardia, low blood pressure. She had high grade fever on presentation. She has no leukocytosis. She does not fulfill sepsis criteria all at once. However, she is at a significant risk of impending sepsis, possibly even septic shock. We would monitor her closely with strict I/O charting and keep low threshold of upgrading her care. She is still hypotesive. She has been afebrile and does not have a raised white count but does have a band neutrophilia. She is compalining of weakness and nausea today. UA - Nitrite (H) Leukocyte Est. (Neg.) Mg 1.1 AST 110 ALT 41 WBC 7.0 (nl) Bands 17 (H) Her kidney function at present is stable with her Creatinine at 0.3 and BUN is 7. 1. Pyelonephritis - Diagosis still questionable. She does have 7/10 flank pain. However, blood cutures were negative. Pending urine cultures. - Pt. being given 1g Ceftriaxone IV DAY 3 -She was given 500ml bolus NS again. She continues to be on maintainence fluids. - Pain management (Tylenol PO, Tylenol IV, Percocet 1 tab) according to prn pain scales - Trend CBC 2.Hypomagnesemia -Magnesium is low again. -Replaced with Mag sulph iv -Will re-check tomorrow 3.Alcohol Dependence -CIWA -Ativan q1p 4. Hypokalemia - Potassium low at 2.8, - She was given 60mEq K yesterday. She was again given 40 mEq K today. 5. Home medications -Continue home medications as required DVT PPx. FC Problem List: 1. Tachycardia 2. Hypotension 3. Hypertension 4. Pyelonephritis 5. Alcohol dependence with withdrawal Pain Ratin Pain Location: left flank Pain Goal: Pain 4 or less Pain Plan: pathway Tomorrow's Labs & Rationales: cbc and bep with K and Mg
--- NOTE | 2018-03-24 12:36 | RADIOLOGY REPORT ---
EXAMINATION: XR PORTABLE CHEST CLINICAL INFORMATION: Cough and congestion. COMPARISON: CT scan of 03/21/18. Prior chest x-rays of 03/21/18. 03/13/18. TECHNIQUE: Portable frontal view of the chest was obtained. FINDINGS: There is increasing bibasilar opacity consistent with atelectasis and/or multifocal pneumonia. There is a probable small right pleural effusion. Heart size remains normal. IMPRESSION: Increasing bibasilar opacity consistent with atelectasis and/or multifocal pneumonia. Probable small right pleural effusion.
[2018-03-24 17:52] LABS: ABSOLUTE BASOPHIL COUNT 0 /CUMM (0.0-0.2); ABSOLUTE EOSINOPHIL COUNT 0 /CUMM (0.0-0.7); ABSOLUTE GRANULOCYTE CT 7.2 /CUMM (1.4-6.5); ABSOLUTE LYMPH COUNT 0.2 /CUMM (1.2-3.4); ABSOLUTE MONOCYTE COUNT 0.1 /CUMM (0.10-0.60); BASOPHIL % 0 % (0.0-2.0); EOSINOPHIL % 0.1 % (0-5); GRANULOCYTE % 95.3 % (42.2-75.2); HEMATOCRIT 30.7 % (37-47); MEAN CORPUSCULAR HGB 31.6 PG (27.0-31.0); MEAN CORPUSCULAR HGB CONC 35.1 G/DL (33.0-37.0); MEAN CORPUSCULAR VOLUME 90.1 FL (81.0-99.0); MEAN PLATELET VOLUME 9.3 FL (7.4-10.4); PLATELET COUNT 86 /CUMM (130-400); RBC DISTRIBUTION WIDTH 13.9 % (11.5-14.5); WHITE BLOOD CELL COUNT 7.5 /CUMM (4.8-10.8)
--- NOTE | 2018-03-24 20:57 | CT SCAN REPORT ---
EXAMINATION: CT CHEST, ABDOMEN AND PELVIS CLINICAL INFORMATION: Reason for Study:
Presumptive Dx: Acute infectious pathology
Signs Symptoms: fever, abd pain
COMPARISON: 03/21/2018 TECHNIQUE: Multidetector volumetric CT imaging of the chest was obtained Axial MIP volume rendering provided. Sagittal and coronal reformatted images were obtained. CONTRAST: 95 mL Optiray 320 injected Reformatted coronal and sagittal imaging was performed. DLP: 372 mGy-cm FINDINGS: NON DESTRUCTIVE TESTING INSPECTOR, LINES TUBES: Installer reviewed, no lines. LUNGS: Interstitial: There is compression atelectasis at the RIGHT and LEFT lung base and moderate size bilateral pleural effusions. Lung nodules: There are no significant lung nodules. AIRWAYS: Trachea and bronchi are normal. PLEURA: There are bilateral moderate pleural effusions. MEDIASTINUM AND OLAF: The visualized thyroid gland is unremarkable. No mediastinal, hilar or axillary lymphadenopathy. There is no mediastinal mass. THORACIC AORTA: Thoracic aorta is normal in size. CHEST WALL, LOWER NECK, SURROUNDING SOFT TISSUES: Normal HEART AND PERICARDIUM: Heart is normal in size. There is no pericardial effusion. HEPATOBILIARY: Redemonstration of hypodense liver suggesting hepatic steatosis. No liver mass. GALLBLADDER: Gallbladder is distended. SPLEEN: Spleen is normal in size. PANCREAS: No focal mass or ductal dilatation. GI TRACT: There is a fluid-filled structure with air abutting the GE junction measures 2.9 x 2.5 cm most likely a diverticulum protruding from the gastric fundus, it is abutting the LEFT adrenal. Nonobstructive bowel gas pattern. The rectum and perirectal fat are clear. Sigmoid colon is normal. Small and large bowels unremarkable. ADRENALS: Adrenals normal in size. KIDNEYS/URETERS: Redemonstration of 5 hypodense fluid-filled structure middle pole RIGHT kidney measure about 2 cm, this has not changed in size, the content of which is revealing attenuation higher than expected for a simple cysts, the possibility of pyelonephritis was raised on prior CT. PELVIC ORGANS/BLADDER: Unremarkable PERITONEUM: There is a free fluid in the dependent portion of the pelvis this has newly developed since prior study. There is no free air. LYMPH NODES: no retroperitoneal or mesenteric lymphadenopathy. VASCULAR:Abdominal aorta normal in size, no aneurysm found. BONES, ABDOMINAL WALL AND SOFT TISSUES: Age-appropriate changes of the spine and skeletal system, no destructive osteolytic or osteosclerotic bone lesion found IMPRESSION: 1. Newly developed bilateral pleural effusion and compression atelectasis at RIGHT and LEFT lower lobes. 2. Newly developed ascites, free fluid in the dependent portion of the pelvis. 3. Redemonstration of 5 hypodense fluid-filled 2 cm structure middle pole RIGHT kidney, the attenuation of the fluid is higher than expected for a simple cyst, the possibility of pyelonephritis was raised. 4. There is air and fluid-filled 2.5 cm structure abutting the LEFT adrenal probably a diverticulum protruding from the gastric fundus. 5. Hypodense liver suggesting hepatic steatosis. 6. Gallbladder is distended.
[2018-03-25 02:00] VITALS: BP 98/58
[2018-03-25 06:24] VITALS: BP 100/58
--- NOTE | 2018-03-25 07:52 | PN- Housestaff ---
Felecia Miller 03/25/18 0751: Subjective Follow-up For: Pyelonephritis Subjective: Patient was seen and examined at bedside. She is doing well clinically. She has no complaints, wants to get out of bed and walk. She does report some malaise though. Denies chills, nausea, vomiting, abdominal pain, SOB, chest pain, swelling in her legs. Review of Systems Constitutional: Reports: see HPI. Objective Last 24 Hrs of Vital Signs/I&O Vital Signs Date Time Temp Pulse Resp B/P B/P Pulse O2 O2 Flow FiO2 Mean Ox Delivery Rate 03/25 0624 98.4 102 20 100/58 96 Room Air 03/25 0200 98.5 106 18 98/58 96 Room Air 03/25 0000 96 Room Air 03/24 2226 99.3 03/24 2151 98.3 96 18 102/58 94 Room Air 03/24 2000 99.9 03/24 1848 101.2 03/24 1832 99.7 03/24 1831 99.7 110 18 98/58 94 Room Air 03/24 1725 102.8 03/24 1652 102.8 114 20 98/56 94 Room Air 03/24 1645 102.3 03/24 1611 102.3 03/24 1600 94 Room Air 03/24 1432 102.5 03/24 1421 97.0 109 20 118/62 95 Room Air Intake & Output 03/25 1600 03/25 0800 03/25 0000 Intake Total 920 1400 Output Total Balance 920 1400 Intake, IV 800 800 Intake, Oral 120 600 Number 1 2 Bowel Movements Physical Exam General Appearance: Alert, Oriented X3, Cooperative, No Acute Distress Skin: No Rashes Skin Temp/Moisture Exam: Warm/Dry Cardiovascular: Regular Rate, Normal S1, Normal S2 Lungs: Clear to Auscultation Abdomen: Normal Bowel Sounds, Soft, mild tenderness in the RUQ Extremities: No Edema, Normal Pulses Last 24 Hrs of Lab/Efrain Results Last 24 Hrs of Labs/Mics: Laboratory Tests 03/25/18 0932: Anion Gap 8, Estimated GFR > 60, BUN/Creatinine Ratio 22.5, Magnesium 1.9, Total Bilirubin 0.9, Direct Bilirubin 0.7 H, AST 29, ALT 32, Alkaline Phosphatase 84, Total Protein 4.5 L, Albumin 2.0 L, CBC w Diff MAN DIFF ORDERED, RBC 3.30 L, MCV 90.2, MCH 30.8, MCHC 34.2, RDW 13.9, MPV 10.5 H, Gran % 87.1 H, Lymphocytes % 6.0 L, Monocytes % 6.7, Eosinophils % 0.2, Basophils % 0, Absolute Granulocytes 6.9 H, Segmented Neutrophils 82 H, Band Neutrophils 8 H , Absolute Lymphocytes 0.5 L, Lymphocytes 5 L, Monocytes 5, Absolute Monocytes 0.5, Absolute Eosinophils 0, Absolute Basophils 0, Platelet Estimate DECREASED, Normocytic RBCs VERIFIED, Normochromic RBCs VERIFIED 03/24/18 1730: CBC w Diff MAN DIFF ORDERED, RBC 3.40 L, MCV 90.1, MCH 31.6 H, MCHC 35.1, RDW 13.9, MPV 9.3, Gran % 95.3 H, Lymphocytes % 2.8 L, Monocytes % 1.8, Eosinophils % 0.1, Basophils % 0, Absolute Granulocytes 7.2 H, Segmented Neutrophils 84 H, Band Neutrophils 8 H, Absolute Lymphocytes 0.2 L, Lymphocytes 6 L, Monocytes 2, Absolute Monocytes 0.1, Absolute Eosinophils 0, Absolute Basophils 0, Platelet Estimate DECREASED, Normocytic RBCs VERIFIED, Normochromic RBCs VERIFIED Microbiology 03/25 1122 URINE ROUT: Urine Culture - ORD 03/24 1645 BLOOD: Blood Culture - RES 03/24 1635 BLOOD: Blood Culture - RES Assessment/Plan Assessment: CT ABD & PELVIS W IV CONTRAST - 1. There has been interval increase in the area of low attenuation at the upper pole of the right kidney, with contents greater than simple fluid. In view of its change in size over only 8 days, it may be consistent with an area of developing pyelonephritis, and should be clinically correlated. 2. The peripancreatic inflammatory changes have resolved compared to the prior study. 3. There is persistent hepatic steatosis. 4. Mild thickening of the colon wall in the sigmoid region is nonspecific. There is a loop of small bowel in the left abdomen which is minimally prominent with a fluid level, which may be consistent with a small focal area of ileus. 62 YO female with a PMHx. of alcohol dependence, anxiety, depression, and HTN is admitted to the [facility] for the evaluation anf treatment of presumed pyelonephritis. Her first set of urine cultures were contaminated. Awaiting results on a fresh urine culture. Blood cultures are negative. The patient spiked a fever of 102.8 yesterday. She hs been hypotensive with a blood pressure of 88/50 in the morning with her heart rate fluctuating between 100-115. She still does not have a white count. She does not look toxic clinically. Her labs from this morning: WBC: 7.9, Hb: 10.2, platelet: 71, Na: 139, K: 3.4, Bicarbonate: 19, Creatinine: 0.4, Total bilirubin: 0.9, Direct bilirubin: 0.7, AST: 29, ALT T: 32 UA - Nitrite (H) Leukocyte Est. (Neg.) Her potassium has dropped from 299 on addmission to 79 at present 1. Pyelonephritis -Pain resolved. Two sets of blood cultures negative. Awaiting results on urine cultures -ID consult appreciated. Stop ceftriaxone. -He continues to be on maintenance fluids at the rate of 100 cc/h. - Pain management (Tylenol PO, Tylenol IV, Percocet 1 tab) according to prn pain scales - Trend CBC 2.Fever of unknown origin -She spiked a fever of 103 yesterday unresponsive to acetaminophen -CT showed new pleural effusion, ascites, CXR showed multilobar pneumonia -WBC count normal -ID consult appreciated. * Order C.diff cultures * Will start Vanco 125 mg p.o. after cultures are sent 3.Hypomagnesemia(resolved) -Repleted 4.Alcohol Dependence -CIWA discontinued -Ativan q1p 5. Hypokalemia -Potassium is 3.4 today -we will discontinue KCl 6. Thrombocytopenia -Count fell from 299 to 71 today -Alcohol versus sepsis -DIC panel, PF4 antibodies. will f/u reports -Stopped Lovenox for now 7. Home medications -Continue home medications as required DVT PPx: only ALPS FC Problem List: 1. Tachycardia 2. Hypotension 3. Pyelonephritis 4. Thrombocytopenia 5. Hypotension 6. Fever of unknown origin Pain Ratin Pain Location: na Pain Goal: Remain pain free Pain Plan: pathway Tomorrow's Labs & Rationales: cbc and bep Tab Johnson 03/25/18 1255: Attending MD Review Statement Attending Statement Attending MD Statement: examined this patient, discuss w/resident/PA/NATURAL GAS ENGINEER, agreed w/resident/PA/NATURAL GAS ENGINEER, discussed with family, reviewed EMR data (avail), discussed with nursing, discussed with case mgmt, reviewed images, amended to note Attending Assessment/Plan: 62-year-old female with a significant past medical history for alcohol dependence, anxiety, depression, hypertension, recently admitted for alcohol withdrawal and alcohol related pancreatitis presents with a chief complain of left upper quadrant pain associated with nausea and vomiting and generalized weakness with acute pyelonephritis meeting sepsis like criteria. Fever+ in past 24 hrs. BP borderline and with borderline tachycardia on gentle hydration with negative cultures. Absent leukocytosis. She has remained on ceftriaxone. Consult ID. (?drug induced fever) hypokalemia replace and recheck. thrombocytopenia worsening. Consider d/c lovenox. encourage ambulation FULL CODE.
[2018-03-25 10:09] LABS: ABSOLUTE BASOPHIL COUNT 0 /CUMM (0.0-0.2); ABSOLUTE EOSINOPHIL COUNT 0 /CUMM (0.0-0.7); ABSOLUTE GRANULOCYTE CT 6.9 /CUMM (1.4-6.5); ABSOLUTE LYMPH COUNT 0.5 /CUMM (1.2-3.4); ABSOLUTE MONOCYTE COUNT 0.5 /CUMM (0.10-0.60); BASOPHIL % 0 % (0.0-2.0); EOSINOPHIL % 0.2 % (0-5); GRANULOCYTE % 87.1 % (42.2-75.2); HEMATOCRIT 29.8 % (37-47); MEAN CORPUSCULAR HGB 30.8 PG (27.0-31.0); MEAN CORPUSCULAR HGB CONC 34.2 G/DL (33.0-37.0); MEAN CORPUSCULAR VOLUME 90.2 FL (81.0-99.0); MEAN PLATELET VOLUME 10.5 FL (7.4-10.4); PLATELET COUNT 71 /CUMM (130-400); RBC DISTRIBUTION WIDTH 13.9 % (11.5-14.5); WHITE BLOOD CELL COUNT 7.9 /CUMM (4.8-10.8)
[2018-03-25 14:39] VITALS: BP 110/72
--- NOTE | 2018-03-25 15:12 | Cons- Infect Disease ---
General Information and HPI Consulting Request Date of Consult: 03/25/18 Requested By: Tab Johnson MD Reason for Consult: Persistent fevers/rule out UTI Source of Information: patient, old records History of Present Illness: This is a 62-year-old woman with a history of hypertension and alcohol dependence, hospitalized 1 week prior to admission with alcohol induced pancreatitis, treated supportively, readmitted on March 21, 5 days after discharge, with recurrent nausea, vomiting and left upper quadrant pain in the setting of continued alcohol use. On admission she was initially afebrile but, after several hours, spiked a fever to 103.2. Laboratory data revealed a white blood cell count of 9000, with 70 segs and 8 bands, BUN/creatinine 4 and 0.4, lipase 353, magnesium 1.1, AST/ALT 110 and 43. Urinalysis 1-3 WBCs. Chest x- ray was negative. CT of the abdomen and pelvis revealed an interval increase in the area of low attenuation of the upper pole of the right kidney, resolution of the peripancreatic inflammatory changes, mild thickening of the colon wall with a small focal area of ileus in the left abdomen. She was begun on Ceftriaxone for a presumed urinary tract infection. She initially appeared to defervesce but she developed recurrent fevers on March 24. Her white blood cell count has remained normal but her platelet count decreased. Her abdominal pain has resolved but, on March 24, she developed diarrhea, with 11 stools reported yesterday and 4 overnight. She notes an occasional slight, nonproductive cough, but denies any chest pain or shortness of breath presently. She has no dysuria or back pain. Allergies/Medications Allergies: Coded Allergies: NO KNOWN ALLERGIES (06/23/14) Home Med List: Amlodipine Besylate (Norvasc) 5 MG TABLET 1 TAB PO DAILY BP (Reported) Escitalopram Oxalate (Lexapro) 20 MG TABLET 1.5 TAB PO DAILY MENTAL HEALTH ( Reported) Folic Acid 1 MG TABLET 1 MG PO DAILY anemia Multivitamin (One Daily Multivitamin) 1 EACH TABLET 1 TAB PO DAILY supplement . Past History Travel History Traveled to [place] past 21 day No Medical History Blood Transfusion Hx: No Neurological: NONE EENT: EAR INFECTION Cardiovascular: hypertension Respiratory: NONE Gastrointestinal: pancreatitis Hepatic: NONE Renal: NONE Musculoskeletal: NONE Psychiatric: alcohol dependence, anxiety, depression, Adjustment disorder Endocrine: NONE Blood Disorders: NONE Cancer(s): NONE SENIOR CLINICAL DATA ANALYST/Reproductive: NONE History of MRSA: No History of VRE: No History of CDIFF: No Isolation History: Standard Surgical History Surgical History: Family History Relations & Conditions If Any: MOTHER (DM HTN). Psychosocial History Who Do You Live With? self Services at Home: None Primary Language: Slovak Smoking Status: Current Everyday Smoker ETOH Use: alcoholic Illicit Drug Use: denies illicit drug use Functional Ability ADLs Independent: dressing, eating, toileting, bathing. Ambulation: independent IADLs Independent: shopping, housework, finances, food prep, telephone, transportation , medication admin. Employment History Employment: Disability Review of Systems Review of Systems All Other Systems: Reviewed and Negative Exam & Diagnostic Data Last 24 Hrs of Vital Signs/I&O Vital Signs Date Time Temp Pulse Resp B/P B/P Pulse O2 O2 Flow FiO2 Mean Ox Delivery Rate 03/25 1439 98.2 84 20 110/72 96 Room Air 03/25 0624 98.4 102 20 100/58 96 Room Air 03/25 0200 98.5 106 18 98/58 96 Room Air 03/25 0000 96 Room Air 03/24 2226 99.3 03/24 2151 98.3 96 18 102/58 94 Room Air 03/24 2000 99.9 03/24 1848 101.2 03/24 1832 99.7 03/24 1831 99.7 110 18 98/58 94 Room Air 03/24 1725 102.8 03/24 1652 102.8 114 20 98/56 94 Room Air 03/24 1645 102.3 03/24 1611 102.3 03/24 1600 94 Room Air Intake & Output 03/25 1600 03/25 0800 03/25 0000 Intake Total 920 1400 Output Total Balance 920 1400 Intake, IV 800 800 Intake, Oral 120 600 Number 4 2 Bowel Movements Physical Exam Other Physical Findings: She is awake and alert in no acute distress. T-max 102.8. Skin reveals no rash. HEENT exam is negative. Neck is supple with no adenopathy. Lungs are clear. Heart regular rhythm with no murmur. Abdomen is soft, mildly tender on palpation of the right upper quadrant, with no guarding or rebound, positive bowel sounds. Back no CVA tenderness. Extremities no cyanosis, clubbing or edema. Neuro is without focality. Last 24 Hours of Lab Results: Laboratory Tests 03/25 03/25 1440 0932 Chemistry Sodium (137 - 145 mmol/L) 139 Potassium (3.5 - 5.1 mmol/L) 3.4 L Chloride (98 - 107 mmol/L) 112 H Carbon Dioxide (22 - 30 mmol/L) 19 L Anion Gap (5 - 16) 8 BUN (7 - 17 mg/dL) 9 Creatinine (0.5 - 1.0 mg/dL) 0.4 L Estimated GFR (>60 ml/min) > 60 BUN/Creatinine Ratio (7 - 25 %) 22.5 Lactic Acid Pending Magnesium (1.6 - 2.3 mg/dL) 1.9 Total Bilirubin (0.2 - 1.3 mg/dL) 0.9 Direct Bilirubin (< 0.4 mg/dL) 0.7 H AST (14 - 36 U/L) 29 ALT (9 - 52 U/L) 32 Alkaline Phosphatase (<127 U/L) 84 Total Protein (6.3 - 8.2 g/dL) 4.5 L Albumin (3.5 - 5.0 g/dL) 2.0 L Coagulation PT Pending INR Pending APTT Pending Fibrinogen Activity Pending D-Dimer High Sensitivty Pending Hematology CBC w Diff MAN DIFF ORDERED WBC (4.8 - 10.8 /CUMM) 7.9 RBC (4.20 - 5.40 /CUMM) 3.30 L Hgb (12.0 - 16.0 G/DL) 10.2 L Hct (37 - 47 %) 29.8 L MCV (81.0 - 99.0 FL) 90.2 MCH (27.0 - 31.0 PG) 30.8 MCHC (33.0 - 37.0 G/DL) 34.2 RDW (11.5 - 14.5 %) 13.9 Plt Count (130 - 400 /CUMM) 71 L MPV (7.4 - 10.4 FL) 10.5 H Gran % (42.2 - 75.2 %) 87.1 H Lymphocytes % (20.5 - 51.1 %) 6.0 L Monocytes % (1.7 - 9.3 %) 6.7 Eosinophils % (0 - 5 %) 0.2 Basophils % (0.0 - 2.0 %) 0 Absolute Granulocytes (1.4 - 6.5 /CUMM) 6.9 H Segmented Neutrophils (42.2 - 75.2 %) 82 H Band Neutrophils (0.0 - 5.0 %) 8 H Absolute Lymphocytes (1.2 - 3.4 /CUMM) 0.5 L Lymphocytes (20.5 - 51.1 %) 5 L Monocytes (1.7 - 9.3 %) 5 Absolute Monocytes (0.10 - 0.60 /CUMM) 0.5 Absolute Eosinophils (0.0 - 0.7 /CUMM) 0 Absolute Basophils (0.0 - 0.2 /CUMM) 0 Platelet Estimate (ADEQUATE) DECREASED Normocytic RBCs VERIFIED Normochromic RBCs VERIFIED 03/24 1730 Hematology CBC w Diff MAN DIFF ORDERED WBC (4.8 - 10.8 /CUMM) 7.5 RBC (4.20 - 5.40 /CUMM) 3.40 L Hgb (12.0 - 16.0 G/DL) 10.8 L Hct (37 - 47 %) 30.7 L MCV (81.0 - 99.0 FL) 90.1 MCH (27.0 - 31.0 PG) 31.6 H MCHC (33.0 - 37.0 G/DL) 35.1 RDW (11.5 - 14.5 %) 13.9 Plt Count (130 - 400 /CUMM) 86 L MPV (7.4 - 10.4 FL) 9.3 Gran % (42.2 - 75.2 %) 95.3 H Lymphocytes % (20.5 - 51.1 %) 2.8 L Monocytes % (1.7 - 9.3 %) 1.8 Eosinophils % (0 - 5 %) 0.1 Basophils % (0.0 - 2.0 %) 0 Absolute Granulocytes (1.4 - 6.5 /CUMM) 7.2 H Segmented Neutrophils (42.2 - 75.2 %) 84 H Band Neutrophils (0.0 - 5.0 %) 8 H Absolute Lymphocytes (1.2 - 3.4 /CUMM) 0.2 L Lymphocytes (20.5 - 51.1 %) 6 L Monocytes (1.7 - 9.3 %) 2 Absolute Monocytes (0.10 - 0.60 /CUMM) 0.1 Absolute Eosinophils (0.0 - 0.7 /CUMM) 0 Absolute Basophils (0.0 - 0.2 /CUMM) 0 Platelet Estimate (ADEQUATE) DECREASED Normocytic RBCs VERIFIED Normochromic RBCs VERIFIED Last 24 Hours of Efrain Results: Blood cultures March 21 negative Urine culture March 21 multiple colony types consistent with contamination Blood cultures March 24 negative Diagnostic Data Recent Imaging Findings: CT of the chest, abdomen and pelvis with IV contrast March 24 reveals newly developed bilateral pleural effusions with compressive atelectasis at both lower lobes; newly developed ascites; redemonstration of a hypodense fluid-filled structure in the midpole of the right kidney, a probable diverticulum protruding from the gastric fundus and a distended gallbladder Assessment/Plan Assessment/Plan Impression: This is a 62-year-old woman hospitalized 1 week prior to admission with alcohol induced pancreatitis, treated supportively, readmitted on March 21 with recurrent nausea, vomiting and left upper quadrant pain in the setting of continued alcohol use, found to be febrile with a normal white blood cell count, but increased bands, a mildly elevated lipase and AST and a normal urinalysis, with a CT of the abdomen and pelvis revealing resolution of the peripancreatic inflammatory changes, mild thickening of the colon wall and an area of low attenuation in the upper pole the right kidney, begun on Ceftriaxone for a presumed urinary tract infection with recurrent fevers and with the development of diarrhea. The etiology of her fevers is unclear. One possible source is C. difficile, given her recent diarrhea and antibiotic use, though she reports no antibiotic use prior to admission. Of interest her initial CT scan revealed mild thickening of the colon wall in the sigmoid region. Other possible sources include pancreatitis, though her CT scan revealed resolution of the peripancreatic inflammation, cholecystitis, with mild right upper quadrant tenderness and a distended gallbladder on the CT scan, and a urinary tract infection, given the low-attenuation area in the upper pole of the right kidney on CT scan, though she has no urinary symptoms and her urinalysis was essentially negative. Her CT scan also revealed the new onset of ascites, but she has no history of cirrhosis to raise concern for spontaneous bacterial peritonitis. Her thrombocytopenia may be secondary to infection or alcohol. Suggestion: 1. Stool for C. difficile 2. Discontinue Ceftriaxone 3. Begin Vancomycin 125 mg p.o. every 6 hours after the stool is sent for C. difficile Consult Acknowledgment - Thank you for your consult request.
[2018-03-25 15:51] LABS: PT 14.8 SEC (9.4-12.5); PTT 37 SEC (25-37)
[2018-03-25 22:21] VITALS: BP 114/72
[2018-03-26 06:59] VITALS: BP 120/80
--- NOTE | 2018-03-26 07:54 | PN- Housestaff ---
Felecia Miller 03/26/18 0753: Subjective Follow-up For: 1. Pyelonephritis 2. Hypotension Subjective: Patient was seen and examined at bedside. She was tearful when I saw her, said that she" felt like crap". She says that she has been coughing a lot lately with pain in the chest when she coughs. She does not report any belly pain. She reports that 2 days ago that she was having difficulty swallowing her pills has been having them crushed since then. However, she does not want to take the thickened liquids anymore. She reports 5 episodes of diarrhea overnight, which is new. She denies fever, chills, nausea, vomiting, palpitations. Review of Systems Constitutional: Reports: see HPI. Objective Last 24 Hrs of Vital Signs/I&O Vital Signs Date Time Temp Pulse Resp B/P B/P Pulse O2 O2 Flow FiO2 Mean Ox Delivery Rate 03/26 0839 78 122/78 03/26 0800 Room Air 03/26 0659 98.3 88 20 120/80 96 Room Air 03/25 2221 98.6 87 18 114/72 98 Room Air 03/25 1439 98.2 84 20 110/72 96 Room Air Intake & Output 03/26 1600 03/26 0800 03/26 0000 Intake Total 1040 240 Output Total 100 Balance -100 1040 240 Intake, IV 800 Intake, Oral 240 240 Number 3 2 4 Bowel Movements Output, Urine 100 Physical Exam General Appearance: Alert, Oriented X3, Cooperative, Mild Distress Skin: No Rashes, No Breakdown Cardiovascular: Regular Rate, Normal S1, Normal S2 Lungs: Clear to Auscultation Abdomen: Normal Bowel Sounds, Soft, No Tenderness Extremities: No Edema, Normal Pulses Last 24 Hrs of Lab/Efrain Results Last 24 Hrs of Labs/Mics: Laboratory Tests 03/26/18 0830: Anion Gap 6, Estimated GFR > 60, BUN/Creatinine Ratio 36.7 H, CBC w Diff NO MAN DIFF REQ, RBC 3.70 L, MCV 91.2, MCH 31.0, MCHC 33.9, RDW 14.8 H, MPV 11.0 H, Gran % 80.3 H, Lymphocytes % 10.8 L, Monocytes % 7.3, Eosinophils % 1.6, Basophils % 0, Absolute Granulocytes 6.1, Absolute Lymphocytes 0.8 L, Absolute Monocytes 0.6, Absolute Eosinophils 0.1, Absolute Basophils 0 03/25/18 1630: Heparin-induced Plt Ab Pending, Heparin-PF4 AB OD Pending 03/25/18 1430: Lactic Acid 0.8, PT 14.8 H, INR 1.35 H, APTT 37, Fibrinogen Activity 425 H, D -Dimer High Sensitivty 1724 H Microbiology 03/25 1650 STOOL: Clostridium difficile Toxin A & B - COMP Assessment/Plan Assessment: 62 YO female with a PMHx. of alcohol dependence, anxiety, depression, and HTN is admitted to the [facility] for the evaluation anf treatment of presumed pyelonephritis. Her first set of urine cultures were contaminated. Blood cultures are negative. The nurse states that they could not collect a fresh set of urine samples, since she has diarrhea whenever she goes to the bathroom. The patient has been afebrile overnight. Her blood pressure is slowly but steadily coming up. She does not have tachycardia anymore. She has been getting out of bed, moving about without complaints. White blood count:7.6 Creatinine: 0.3 Platelets are back to 122 from 71 yesterday. Her PT is 14.8, INR: 1.35, fibrinogen: 425, Ddimer: 174. HIP antibody is pending, HEP PF4 is pending 1. Pyelonephritis -Pain resolved. Two sets of blood cultures negative. Awaiting results on urine cultures -ID consult appreciated. Stop ceftriaxone. -She continues to be on maintenance fluids at the rate of 100 cc/h. Will consider discontinuing if her blood pressure continues to be normal - Pain management (Tylenol PO, Tylenol IV, Percocet 1 tab) according to prn pain scales - Trend CBC 2.Fever of unknown origin -She spiked a fever of 103 on 03/24. -CT showed new pleural effusion, ascites, CXR showed questioanble multilobar pneumonia -WBC count normal -ID consult appreciated. * Order C.diff cultures * Vancomycin 125 mg p.o. started 3.Hypomagnesemia(resolved) -Repleted 4.Alcohol Dependence -CIWA discontinued - Did not show any symptoms of withdrawal during hospital stay 5. Hypokalemia -Potassium is 3.4 today -we will discontinue KCl 6. Thrombocytopenia -Count fell from 299 to 71 today -Alcohol versus sepsis -DIC panel, PF4 antibodies. will f/u reports -Stopped Lovenox for now 7. Cough -She complained of excessive cough with chest spasms -She was given Robitussin syrup -Swallow eval. Will follow recommendations 8. Home medications -Continue home medications as required DVT PPx: only ALPS FC Problem List: 1. Fever of unknown origin 2. Hypotension 3. Thrombocytopenia 4. Pyelonephritis 5. Alcohol dependence 6. Cough 7. Abnormal liver function test Pain Ratin Pain Location: na Pain Goal: Remain pain free Pain Plan: pathway Tomorrow's Labs & Rationales: cbc and bep Tab Johnson 03/26/18 1146: Attending MD Review Statement Attending Statement Attending MD Statement: examined this patient, discuss w/resident/PA/RESEARCH DAIRY FARM SUPERVISOR, agreed w/resident/PA/RESEARCH DAIRY FARM SUPERVISOR, discussed with family, reviewed EMR data (avail), discussed with nursing, discussed with case mgmt, reviewed images, amended to note Attending Assessment/Plan: 62-year-old female with a significant past medical history for alcohol dependence, anxiety, depression, hypertension, recently admitted for alcohol withdrawal and alcohol related pancreatitis presents with a chief complain of left upper quadrant pain associated with nausea and vomiting and generalized weakness with acute pyelonephritis meeting sepsis like criteria and now developed diarrhea. AFebrile in past 24 hrs. BP borderline with negative cultures. Absent leukocytosis. Few epsiodes of loose stools. ID appreciated. Ceftriaxone discontinued. Possible C diff and vacnomycin started. Follow up stool studies. hypokalemia with mild improvement. replace and recheck. Thrombocytopenia monitor. d/hammad lovenox. encourage ambulation FULL CODE.
[2018-03-26 10:38] LABS: ABSOLUTE BASOPHIL COUNT 0 /CUMM (0.0-0.2); ABSOLUTE EOSINOPHIL COUNT 0.1 /CUMM (0.0-0.7); ABSOLUTE GRANULOCYTE CT 6.1 /CUMM (1.4-6.5); ABSOLUTE MONOCYTE COUNT 0.6 /CUMM (0.10-0.60); RBC DISTRIBUTION WIDTH 14.8 % (11.5-14.5)
[2018-03-26 10:55] LABS: ABSOLUTE LYMPH COUNT 0.8 /CUMM (1.2-3.4); BASOPHIL % 0 % (0.0-2.0); EOSINOPHIL % 1.6 % (0-5); GRANULOCYTE % 80.3 % (42.2-75.2); HEMATOCRIT 33.8 % (37-47); MEAN CORPUSCULAR HGB CONC 33.9 G/DL (33.0-37.0); MEAN CORPUSCULAR VOLUME 91.2 FL (81.0-99.0); WHITE BLOOD CELL COUNT 7.6 /CUMM (4.8-10.8)
[2018-03-26 12:41] LABS: PLATELET COUNT 122 /CUMM (130-400)
--- NOTE | 2018-03-26 13:56 | PN- Infect Dx ---
Subjective Subjective: Afebrile. She complains of an increased cough, which remains nonproductive, with no chest pain or shortness of breath. She continues to have diarrhea, with 8 stools recorded yesterday and 5 overnight, with no further nausea, vomiting or abdominal pain. Objective Last 24 Hrs of Vital Signs/I&O Vital Signs Date Time Temp Pulse Resp B/P B/P Pulse O2 O2 Flow FiO2 Mean Ox Delivery Rate 03/26 0839 78 122/78 03/26 0800 Room Air 03/26 0659 98.3 88 20 120/80 96 Room Air 03/25 2221 98.6 87 18 114/72 98 Room Air 03/25 1439 98.2 84 20 110/72 96 Room Air Intake & Output 03/26 1600 03/26 0800 03/26 0000 Intake Total 1040 240 Output Total 100 Balance -100 1040 240 Intake, IV 800 Intake, Oral 240 240 Number 3 2 4 Bowel Movements Output, Urine 100 Physical Exam Other Physical Findings: She appears uncomfortable but in no acute distress Lungs bibasilar crackles Heart regular rhythm with no murmur Abdomen is distended, nontender with positive bowel sounds Back no CVA tenderness Extremities no cyanosis, clubbing or edema Results Last 24 Hours of Lab Results: Laboratory Tests 03/26 03/25 03/25 0830 1630 1430 Chemistry Sodium (137 - 145 mmol/L) 142 Potassium (3.5 - 5.1 mmol/L) 4.2 Chloride (98 - 107 mmol/L) 117 H Carbon Dioxide (22 - 30 mmol/L) 20 L Anion Gap (5 - 16) 6 BUN (7 - 17 mg/dL) 11 Creatinine (0.5 - 1.0 mg/dL) 0.3 L Estimated GFR (>60 ml/min) > 60 BUN/Creatinine Ratio (7 - 25 %) 36.7 H Lactic Acid (0.7 - 2.1 mmol/L) 0.8 Coagulation PT (9.4 - 12.5 SEC) 14.8 H INR (0.90 - 1.19) 1.35 H APTT (25 - 37 SEC) 37 Fibrinogen Activity (200 - 393 MG/DL) 425 H D-Dimer High Sensitivty (0 - 243 ng/ml) 1724 H Hematology CBC w Diff NO MAN DIFF REQ WBC (4.8 - 10.8 /CUMM) 7.6 RBC (4.20 - 5.40 /CUMM) 3.70 L Hgb (12.0 - 16.0 G/DL) 11.5 L Hct (37 - 47 %) 33.8 L MCV (81.0 - 99.0 FL) 91.2 MCH (27.0 - 31.0 PG) 31.0 MCHC (33.0 - 37.0 G/DL) 33.9 RDW (11.5 - 14.5 %) 14.8 H Plt Count (130 - 400 /CUMM) 122 L MPV (7.4 - 10.4 FL) 11.0 H Gran % (42.2 - 75.2 %) 80.3 H Lymphocytes % (20.5 - 51.1 %) 10.8 L Monocytes % (1.7 - 9.3 %) 7.3 Eosinophils % (0 - 5 %) 1.6 Basophils % (0.0 - 2.0 %) 0 Absolute Granulocytes (1.4 - 6.5 /CUMM) 6.1 Absolute Lymphocytes (1.2 - 3.4 /CUMM) 0.8 L Absolute Monocytes (0.10 - 0.60 /CUMM) 0.6 Absolute Eosinophils (0.0 - 0.7 /CUMM) 0.1 Absolute Basophils (0.0 - 0.2 /CUMM) 0 Immunology Heparin-induced Plt Ab Pending Heparin-PF4 AB OD Pending Last 24 Hours of Efrain Results: Blood cultures 2 March 24 negative Stool C. difficile March 25 negative Assessment/Plan ID Impression: Stable, with her temperatures and white blood cell count now normal, on empiric treatment with p.o. Vancomycin for possible C. difficile, though her C. difficile toxin is negative. This could represent a false negative and it may be reasonable to check a PCR given her recent antibiotics. She does have a cough, with her CT of the abdomen and pelvis revealing bilateral pleural effusions and compressive atelectasis at both bases, though her respiratory status remains stable. The significance of the hypodense fluid-filled structure in the middle pole of the right kidney remains unclear, with no urinary symptoms and with her urinalysis negative. Suggestion: 1. Stool for PCR for C. difficile 2. Consider CT of the chest to further evaluate her pulmonary symptoms 3. Continue p.o. Vancomycin pending above
[2018-03-26 13:58] VITALS: BP 118/80
[2018-03-26 21:00] VITALS: BP 140/72
[2018-03-26 22:25] VITALS: BP 112/60
[2018-03-27 05:55] VITALS: BP 112/80
--- NOTE | 2018-03-27 07:28 | PN- Housestaff ---
Felecia Miller 03/27/18 0728: Subjective Follow-up For: 1. Pyelonephritis 2. Possible C.diff colitis Subjective: Patient was seen and examined at bedside. She had a Tmax of 101.3 overnight but has been afebrile since. She has been complaining of generalized fatugue. Denies chills, nausea, vomiting, adominal pain but had 14 bowel movements yesterday. She has pending C.diff cultures. Review of Systems Constitutional: Reports: see HPI. Objective Last 24 Hrs of Vital Signs/I&O Vital Signs Date Time Temp Pulse Resp B/P B/P Pulse O2 O2 Flow FiO2 Mean Ox Delivery Rate 03/27 0555 97.6 80 20 112/80 97 Room Air 03/26 2241 100.2 03/26 2240 100.2 03/26 2101 101.3 03/26 2100 101.3 96 20 140/72 95 Room Air 03/26 1358 98.3 74 20 118/80 94 Room Air Intake & Output 03/27 1600 03/27 0800 03/27 0000 Intake Total 800 1200 Output Total Balance 800 1200 Intake, IV 800 800 Intake, Oral 400 Number 3 Bowel Movements Physical Exam General Appearance: Alert, Oriented X3, Cooperative, No Acute Distress Skin: No Rashes Neck: Supple Cardiovascular: Regular Rate, Normal S1, Normal S2 Lungs: Clear to Auscultation Abdomen: Normal Bowel Sounds, Soft, No Tenderness Extremities: No Edema, Normal Pulses Assessment/Plan Assessment: 62 YO female with a PMHx. of alcohol dependence, anxiety, depression, and HTN is admitted to the [facility] for the evaluation anf treatment of presumed pyelonephritis. Her first set of urine cultures were contaminated. Blood cultures are negative. The nurse states that they could not collect a fresh set of urine samples, since she has diarrhea whenever she goes to the bathroom. The patient had a Tmax of 101.3 overnight. Her blood pressure is slowly but steadily coming up. She does not have tachycardia anymore. She has been getting out of bed, moving about without complaints. She did have 14 bowel movements yesterday. She has not been getting up to use the bathroom and has been having urgency with diarhhea making her incontinent. White blood count:6.5 Creatinine: 0.3 Platelets are 138 today, Na: 134, K: 4.2. Her PT is 14.8, INR: 1.35, fibrinogen: 425, Ddimer: 174. HIP antibody is pending, HEP PF4 is pending 1. Pyelonephritis -Pain resolved. Two sets of blood cultures negative. Awaiting results on urine cultures -ID consult appreciated. Stop ceftriaxone. -She continues to be on maintenance fluids at the rate of 100 cc/h. Will consider discontinuing tomorrow if her blood pressure continues to be normal. - Pain management (Tylenol PO, Tylenol IV, Percocet 1 tab) according to prn pain scales - Trend CBC 2.Fever of unknown origin -She spiked a fever of 101.3 yesterday. -CT showed new pleural effusion, ascites, CXR showed questioanble multilobar pneumonia -WBC count normal -ID consult appreciated. * Order C.diff cultures * Vancomycin 125 mg p.o. started * Would repeat Chest X-ray. Would do a repeat CT if X-ray is inconclusive * Ordered urine analysis and urine culture 3.Hypomagnesemia(resolved) -Repleted 4.Alcohol Dependence -CIWA discontinued - Did not show any symptoms of withdrawal during hospital stay 5. Hypokalemia -Potassium is 4.2 today -we will discontinue KCl 6. Thrombocytopenia -Platelets:138 today -Alcohol versus sepsis -DIC panel, PF4 antibodies. will f/u reports -She is off Lovenox for now 7. Cough -No cough -She was given Robitussin syrup -Swallow eval. Will follow recommendations 8. Home medications -Continue home medications as required DVT PPx: only ALPS FC Problem List: 1. Abnormal liver function test 2. Alcohol withdrawal 3. Anxiety 4. Fever of unknown origin 5. Thrombocytopenia 6. Pyelonephritis Pain Ratin Pain Location: na Pain Goal: Remain pain free Pain Plan: pathway Tomorrow's Labs & Rationales: cbc and bep Tab Johnson 03/27/18 1103: Attending MD Review Statement Attending Statement Attending MD Statement: examined this patient, discuss w/resident/PA/TABLE TENDER SLUDGE, agreed w/resident/PA/TABLE TENDER SLUDGE, discussed with family, reviewed EMR data (avail), discussed with nursing, discussed with case mgmt, reviewed images, amended to note Attending Assessment/Plan: Febrile in past 24 hrs. Tamx 101.2. BP stable HR 80-90 with negative cultures. Absent leukocytosis. Still Few epsiodes of loose stools. Cough better on room air. ID Follow up. Possible C diff and vacnomycin PO. Follow up stool studies. hypokalemia with improvement. c/w supplementation in IVF. replace and recheck. Thrombocytopenia stable monitor. d/hammad lovenox. encourage ambulation working with PT assist x1. FULL CODE.
[2018-03-27 08:50] LABS: ABSOLUTE BASOPHIL COUNT 0 /CUMM (0.0-0.2); ABSOLUTE EOSINOPHIL COUNT 0.2 /CUMM (0.0-0.7); ABSOLUTE GRANULOCYTE CT 4.8 /CUMM (1.4-6.5); ABSOLUTE LYMPH COUNT 1.2 /CUMM (1.2-3.4); ABSOLUTE MONOCYTE COUNT 0.4 /CUMM (0.10-0.60); BASOPHIL % 0.3 % (0.0-2.0); EOSINOPHIL % 2.4 % (0-5); GRANULOCYTE % 73.8 % (42.2-75.2); HEMATOCRIT 30.9 % (37-47); MEAN CORPUSCULAR HGB CONC 34.4 G/DL (33.0-37.0); MEAN CORPUSCULAR VOLUME 90.1 FL (81.0-99.0); MEAN PLATELET VOLUME 10.4 FL (7.4-10.4); PLATELET COUNT 138 /CUMM (130-400); RBC DISTRIBUTION WIDTH 14.6 % (11.5-14.5); RED BLOOD CELL CT 3.43 /CUMM (4.20-5.40); WHITE BLOOD CELL COUNT 6.5 /CUMM (4.8-10.8)
--- NOTE | 2018-03-27 12:04 | PN- Infect Dx ---
Subjective Subjective: T-max 101.3. She feels improved, with decreased diarrhea, though she did have 14 stools reported yesterday, and with a decreased cough, which remains nonproductive. She was nauseous yesterday, but denies any vomiting or abdominal pain. She has had no chest pain or shortness of breath. Objective Last 24 Hrs of Vital Signs/I&O Vital Signs Date Time Temp Pulse Resp B/P B/P Pulse O2 O2 Flow FiO2 Mean Ox Delivery Rate 03/27 0921 80 112/80 03/27 0555 97.6 80 20 112/80 97 Room Air 03/26 2241 100.2 03/26 2240 100.2 03/26 2101 101.3 03/26 2100 101.3 96 20 140/72 95 Room Air 03/26 1358 98.3 74 20 118/80 94 Room Air Intake & Output 03/27 1600 03/27 0800 03/27 0000 Intake Total 800 1200 Output Total Balance 800 1200 Intake, IV 800 800 Intake, Oral 400 Number 3 Bowel Movements Physical Exam Other Physical Findings: She appears more comfortable in no acute distress Lungs decreased breath sounds at both bases Heart regular rhythm with no murmur Abdomen is soft, nontender with positive bowel sounds Extremities no cyanosis, clubbing or edema Results Last 24 Hours of Lab Results: Laboratory Tests 03/27 0730 Chemistry Sodium (137 - 145 mmol/L) 133 L Potassium (3.5 - 5.1 mmol/L) 4.2 Chloride (98 - 107 mmol/L) 106 Carbon Dioxide (22 - 30 mmol/L) 19 L Anion Gap (5 - 16) 8 BUN (7 - 17 mg/dL) 3 L Creatinine (0.5 - 1.0 mg/dL) 0.3 L Estimated GFR (>60 ml/min) > 60 BUN/Creatinine Ratio (7 - 25 %) 10.0 Hematology CBC w Diff NO MAN DIFF REQ WBC (4.8 - 10.8 /CUMM) 6.5 RBC (4.20 - 5.40 /CUMM) 3.43 L Hgb (12.0 - 16.0 G/DL) 10.6 L Hct (37 - 47 %) 30.9 L MCV (81.0 - 99.0 FL) 90.1 MCH (27.0 - 31.0 PG) 31.0 MCHC (33.0 - 37.0 G/DL) 34.4 RDW (11.5 - 14.5 %) 14.6 H Plt Count (130 - 400 /CUMM) 138 MPV (7.4 - 10.4 FL) 10.4 Gran % (42.2 - 75.2 %) 73.8 Lymphocytes % (20.5 - 51.1 %) 18.1 L Monocytes % (1.7 - 9.3 %) 5.4 Eosinophils % (0 - 5 %) 2.4 Basophils % (0.0 - 2.0 %) 0.3 Absolute Granulocytes (1.4 - 6.5 /CUMM) 4.8 Absolute Lymphocytes (1.2 - 3.4 /CUMM) 1.2 Absolute Monocytes (0.10 - 0.60 /CUMM) 0.4 Absolute Eosinophils (0.0 - 0.7 /CUMM) 0.2 Absolute Basophils (0.0 - 0.2 /CUMM) 0 Last 24 Hours of Efrain Results: Blood cultures March 24 negative Assessment/Plan ID Impression: Recurrent fever, with her white blood cell count remaining normal, on empiric treatment with p.o. Vancomycin, Day 2 of treatment for possible C. difficile, with her toxin test negative. Her cough persists, with her recent CT of the abdomen and pelvis revealing bilateral pleural effusions and compressive atelectasis at both bases. Her respiratory status remains stable, making pneumonia less likely and she did not respond to 4 days of Ceftriaxone, begun for a presumed urinary tract infection. The significance of the hypodense fluid -filled structure in the middle pole of the right kidney remains unclear, with no urinary symptoms and with her urinalysis negative. Suggestion: 1. Stool for C. difficile PCR 2. Repeat chest x-ray and, if nondiagnostic and her cough or fever persists, would pursue CT of the chest 3. Repeat urinalysis and urine culture 4. Continue p.o. Vancomycin pending above
[2018-03-27 13:35] LABS: HEPARIN INDUCED PLATELET AB NEGATIVE (NEGATIVE)
--- NOTE | 2018-03-27 17:19 | RADIOLOGY REPORT ---
EXAMINATION: XR CHEST CLINICAL INFORMATION: Pleural effusion. COMPARISON: CT chest 03/24/2018. Chest x-ray 03/21/2018. TECHNIQUE: 2 views of the chest were obtained. FINDINGS: There is moderate volume bilateral pleural effusions. These are similar to the CT study of 03/24/2018. There is mild pulmonary vascular congestion with increased lung markings. The lung markings that are accentuated by the low inspiratory effort. The cardiac and the mediastinal contours are normal. There is no focal consolidation. IMPRESSION: Moderate volume bilateral pleural effusions unchanged since CAT scan 03/24/2018. There is mild central pulmonary vascular congestion. No focal consolidation.
[2018-03-27 22:10] VITALS: BP 118/80
[2018-03-28 05:21] LABS: C.DIFFICILE TOXIN B QL PCR NOT DETECTED (NOT DETECTED)
[2018-03-28 06:09] VITALS: BP 120/84
--- NOTE | 2018-03-28 07:53 | PN- Housestaff ---
Felecia Miller 03/28/18 0752: Subjective Follow-up For: 1. Pyelonephritis 2. Fever of unknown origin Subjective: Patient was seen and examined at bedside. She looked better today. She reported having about 10 bowel movements since yesterday (chart documents 53). She says she has been eating and drinking well. She denies fever, chills, nausea, vomitng , chest pain. Review of Systems Constitutional: Reports: see HPI. Objective Last 24 Hrs of Vital Signs/I&O Vital Signs Date Time Temp Pulse Resp B/P B/P Pulse O2 O2 Flow FiO2 Mean Ox Delivery Rate 03/28 0932 74 120/84 03/28 0609 98.7 74 18 120/84 97 Room Air 03/27 2210 98.9 82 18 118/80 95 Room Air 03/27 1600 Room Air Intake & Output 03/28 1600 03/28 0800 03/28 0000 Intake Total 1160 760 Output Total Balance 1160 760 Intake, IV 800 400 Intake, Oral 360 360 Number 1 2 3 Bowel Movements Physical Exam General Appearance: Alert, Oriented X3, Cooperative, No Acute Distress Skin: No Rashes Skin Temp/Moisture Exam: Warm/Dry Neck: Supple Cardiovascular: Regular Rate, Normal S1, Normal S2 Lungs: Clear to Auscultation Abdomen: Normal Bowel Sounds, Soft, No Tenderness Extremities: No Edema, Normal Pulses Assessment/Plan Assessment: 62 YO female with a PMHx. of alcohol dependence, anxiety, depression, and HTN is admitted to the [facility] for the evaluation anf treatment of presumed pyelonephritis. Her first set of urine cultures were contaminated. Blood cultures are negative. She has been having multiple bowel movments since yesterday. She wsa afebrile overnight. Her blood pressure has been in the normal range. She does not have tachycardia anymore. She has been getting out of bed, moving about without complaints. She did have about 10 bowel movements yesterday. She has not been getting up to use the bathroom and has been having urgency with diarhhea making her incontinent. White blood count:9.9 Creatinine: 0.3 Platelets are 180 today, Na: 134, K: 4.3. Her PT is 14.8, INR: 1.35, fibrinogen: 425, Ddimer: 174. HIP antibody negative , HEP PF4 is negative 1. Pyelonephritis -Pain resolved. Two sets of blood cultures negative. Awaiting results on urine cultures -ID consult appreciated. Stop ceftriaxone. Stop Vancomycin -Fluids discontinued. - Pain management (Tylenol PO, Tylenol IV, Percocet 1 tab) according to prn pain scales - Trend CBC 2.Fever of unknown origin -She has been afebrile since last night. -CT showed new pleural effusion, ascites, CXR showed questioanble multilobar pneumonia -WBC count 9.9 -ID consult appreciated. * C.diff PCR negative * Vancomycin 125 mg p.o. stopped * Chest X-ray showed b/l pleural effusion unchanged from her previous CT 4 days ago * Urine culture was positive for hematuria and urine ketones 3.Hypomagnesemia(resolved) -Repleted 4.Alcohol Dependence -CIWA discontinued - Did not show any symptoms of withdrawal during hospital stay 5. Hypokalemia -Potassium is 4.3 today -we will discontinue KCl 6. Thrombocytopenia -Platelets:180 today -Alcohol versus sepsis -DIC panel, PF4 antibodies. Both negative -She is continues to be off Lovenox 7. Cough -No cough -She was given Robitussin syrup -Swallow eval. Will follow recommendations 8. Home medications -Continue home medications as required DVT PPx: only ALPS FC Problem List: 1. Cough 2. Alcohol dependence 3. Fever of unknown origin 4. Hypotension 5. Thrombocytopenia 6. Tachycardia 7. Hypotension 8. Hypertension 9. Pyelonephritis Pain Ratin Pain Location: none Pain Goal: Remain pain free Pain Plan: none Tomorrow's Labs & Rationales: cbc and bep Tab Johnson 03/28/18 1057: Attending MD Review Statement Attending Statement Attending MD Statement: examined this patient, discuss w/resident/PA/CHOIR DIRECTOR, agreed w/resident/PA/CHOIR DIRECTOR, discussed with family, reviewed EMR data (avail), discussed with nursing, discussed with case mgmt, reviewed images, amended to note Attending Assessment/Plan: AFebrile in past 24 hrs. BP stable HR 80-90 with negative cultures. Absent leukocytosis. Multiple epsiodes of loose stools. Possible C diff and vancomycin PO. ID Follow up. Follow up stool studies PCR negative for C diff. Stool elastase pending. Add cholesytramine to her regimen. ??chronic pancreatitis. Consider GI consult if no improvement. Pleural effusion bilateral and ascites without cirrhosis likely fluid overload, received fluids. Would d/c fluids for now as she is drinking PO fluids. Consider ECHO. Thrombocytopenia stable/improving monitor. d/hammad lovenox. encourage ambulation working with PT assist x1. FULL CODE.
[2018-03-28 10:01] LABS: ABSOLUTE BASOPHIL COUNT 0 /CUMM (0.0-0.2); ABSOLUTE EOSINOPHIL COUNT 0.1 /CUMM (0.0-0.7); ABSOLUTE GRANULOCYTE CT 8.1 /CUMM (1.4-6.5); EOSINOPHIL % 1.2 % (0-5)
[2018-03-28 10:43] LABS: ABSOLUTE MONOCYTE COUNT 0.6 /CUMM (0.10-0.60); BASOPHIL % 0.1 % (0.0-2.0); GRANULOCYTE % 82.3 % (42.2-75.2); HEMATOCRIT 32.1 % (37-47); MEAN CORPUSCULAR HGB 30.5 PG (27.0-31.0); MEAN CORPUSCULAR HGB CONC 33.7 G/DL (33.0-37.0); MEAN CORPUSCULAR VOLUME 90.3 FL (81.0-99.0); MEAN PLATELET VOLUME 10.4 FL (7.4-10.4); PLATELET COUNT 180 /CUMM (130-400); RBC DISTRIBUTION WIDTH 14.6 % (11.5-14.5); RED BLOOD CELL CT 3.55 /CUMM (4.20-5.40)
[2018-03-28 10:49] LABS: WHITE BLOOD CELL COUNT 9.9 /CUMM (4.8-10.8)
--- NOTE | 2018-03-28 12:40 | PN- Infect Dx ---
Subjective Subjective: Afebrile. She continues to have diarrhea, with 53 bowel movements reported yesterday and 3 overnight. She reports no further nausea, vomiting or abdominal pain. She reports mild shortness of breath with exertion but notes improvement in her cough. Objective Last 24 Hrs of Vital Signs/I&O Vital Signs Date Time Temp Pulse Resp B/P B/P Pulse O2 O2 Flow FiO2 Mean Ox Delivery Rate 03/28 0932 74 120/84 03/28 0609 98.7 74 18 120/84 97 Room Air 03/27 2210 98.9 82 18 118/80 95 Room Air 03/27 1600 Room Air Intake & Output 03/28 1600 03/28 0800 03/28 0000 Intake Total 1160 760 Output Total Balance 1160 760 Intake, IV 800 400 Intake, Oral 360 360 Number 1 2 3 Bowel Movements Physical Exam Other Physical Findings: She appears comfortable in no acute distress Lungs decreased breath sounds at both bases Heart regular rhythm with no murmur Abdomen is soft, nontender with positive bowel sounds Extremities no cyanosis, clubbing or edema Results Last 24 Hours of Lab Results: Laboratory Tests 03/28 03/28 0945 0756 Chemistry Sodium (137 - 145 mmol/L) 132 L Potassium (3.5 - 5.1 mmol/L) 4.3 Chloride (98 - 107 mmol/L) 102 Carbon Dioxide (22 - 30 mmol/L) 19 L Anion Gap (5 - 16) 11 BUN (7 - 17 mg/dL) 2 L Creatinine (0.5 - 1.0 mg/dL) 0.3 L Estimated GFR (>60 ml/min) > 60 BUN/Creatinine Ratio (7 - 25 %) 6.7 L C-React Prot High Sens Pending Hematology CBC w Diff NO MAN DIFF REQ WBC (4.8 - 10.8 /CUMM) 9.9 RBC (4.20 - 5.40 /CUMM) 3.55 L Hgb (12.0 - 16.0 G/DL) 10.8 L Hct (37 - 47 %) 32.1 L MCV (81.0 - 99.0 FL) 90.3 MCH (27.0 - 31.0 PG) 30.5 MCHC (33.0 - 37.0 G/DL) 33.7 RDW (11.5 - 14.5 %) 14.6 H Plt Count (130 - 400 /CUMM) 180 MPV (7.4 - 10.4 FL) 10.4 Gran % (42.2 - 75.2 %) 82.3 H Lymphocytes % (20.5 - 51.1 %) 10.5 L Monocytes % (1.7 - 9.3 %) 5.9 Eosinophils % (0 - 5 %) 1.2 Basophils % (0.0 - 2.0 %) 0.1 Absolute Granulocytes (1.4 - 6.5 /CUMM) 8.1 H Absolute Lymphocytes (1.2 - 3.4 /CUMM) 1.0 L Absolute Monocytes (0.10 - 0.60 /CUMM) 0.6 Absolute Eosinophils (0.0 - 0.7 /CUMM) 0.1 Absolute Basophils (0.0 - 0.2 /CUMM) 0 ESR Westergren Pending 03/27 1600 Urines Urine Color (YEL,AMB,STR) YEL Urine Clarity (CLEAR) CLEAR Urine pH (5.0 - 8.0) 6.5 Ur Specific [place] (1.001 - 1.035) 1.020 Urine Protein (NEG,<30 MG/DL) NEG Urine Ketones (NEG) 15 H Urine Nitrite (NEG) NEG Urine Bilirubin (NEG) NEG Urine Urobilinogen (0.1 - 1.0 EU/dl) 0.2 Ur Leukocyte Esterase (NEG) NEG Ur Microscopic SEDIMENT EXAMINED Urine RBC (0 - 5 /HPF) 15-25 H Urine WBC (0 - 2 /HPF) RARE Ur Epithelial Cells (NONE,FEW) RARE Urine Bacteria (NEG/NONE) RARE H Urine Mucus (FEW,NONE) FEW Urine Hemoglobin (NEG) LARGE H Urine Glucose (N MG/DL) NEG Last 24 Hours of Efrain Results: Stool C. difficile PCR negative Urine culture March 27 negative Blood cultures March 24 negative Recent Imaging Studies: Chest x-ray March 27 reveals moderate volume bilateral pleural effusions, with mild central pulmonary vascular congestion Assessment/Plan ID Impression: Persistent diarrhea, of unclear etiology, with her stool C. difficile toxin and PCR test negative. It may be related to her pancreatitis and GI input should be sought. She remains afebrile with a normal white blood cell count on empiric treatment of C. difficile with p.o. Vancomycin, but, given the negative testing, this can be discontinued. Her chest x-ray reveals bilateral pleural effusions, likely related to the significant amount of fluid she has received, with no evidence for pneumonia. The significance of the hypodense fluid-filled structure in the middle pole of the right kidney remains unclear, with no urinary symptoms and with her urine cultures negative. Suggestion: 1. GI evaluation 2. Further management of her fluid status per Medicine 3. Will need follow-up of the right kidney process as an outpatient 4. Discontinue p.o. Vancomycin and follow off antibiotics
[2018-03-28 15:06] VITALS: BP 122/56
[2018-03-28 22:58] VITALS: BP 130/72
[2018-03-29 06:50] VITALS: BP 130/60
--- NOTE | 2018-03-29 07:41 | PN- Housestaff ---
Felecia Miller 03/29/18 0740: Subjective Follow-up For: Pyelonephritis Fever of unknown origin Diarrhea Subjective: Patient was seen and examined at bedside. She is doing much better today. She is afebrile with no diarrhea, contipation, nausea, vomiting, abdominal pain. Review of Systems Constitutional: Reports: see HPI. Objective Last 24 Hrs of Vital Signs/I&O Vital Signs Date Time Temp Pulse Resp B/P B/P Pulse O2 O2 Flow FiO2 Mean Ox Delivery Rate 03/30 0812 98.5 03/30 0812 66 102/64 03/30 0635 94.0 66 18 102/64 95 03/29 2204 98.4 74 18 128/80 96 03/29 1418 98.5 77 18 100/60 97 Room Air Intake & Output 03/30 1600 03/30 0800 03/30 0000 Intake Total 0 300 Output Total 250 Balance 0 50 Intake, IV 0 Intake, Oral 0 300 Number 1 1 Bowel Movements Output, Urine 250 Physical Exam General Appearance: Alert, Oriented X3, Cooperative, No Acute Distress Neck: Supple Cardiovascular: Regular Rate, Normal S1, Normal S2, No Murmurs Lungs: Clear to Auscultation Abdomen: Normal Bowel Sounds, Soft, No Tenderness, No Hepatospenomegaly Extremities: No Edema, Normal Pulses Assessment/Plan Assessment: 62 YO female with a PMHx. of alcohol dependence, anxiety, depression, and HTN is admitted to the [facility] for the evaluation anf treatment of presumed pyelonephritis. Her first set of urine cultures were contaminated. Blood cultures are negative. She has been having multiple bowel movments since yesterday. She was afebrile overnight. Her blood pressure has been in the normal range. She does not have tachycardia anymore. She has been getting out of bed, moving about without complaints. No diarrhea overnight. White blood count:9.9 Creatinine: 0.3 Platelets are 180 today, Na: 134, K: 4.3. Her PT is 14.8, INR: 1.35, fibrinogen: 425, Ddimer: 174. HIP antibody negative , HEP PF4 is negative 1. Pyelonephritis -Pain resolved. Two sets of blood cultures negative. Awaiting results on urine cultures -ID consult appreciated. Stop ceftriaxone. Stop Vancomycin -Fluids discontinued. - Pain management (Tylenol PO, Tylenol IV, Percocet 1 tab) according to prn pain scales - Trend CBC 2.Fever of unknown origin -She has been afebrile since last night. -CT showed new pleural effusion, ascites, CXR showed questioanble multilobar pneumonia -WBC count 9.9 -ID consult appreciated. * C.diff PCR negative * Vancomycin 125 mg p.o. stopped * Chest X-ray showed b/l pleural effusion unchanged from her previous CT 4 days ago * Urine culture was positive for hematuria and urine ketones 3.Hypomagnesemia(resolved) -Repleted 4.Alcohol Dependence -CIWA discontinued - Did not show any symptoms of withdrawal during hospital stay 5. Hypokalemia -Potassium is 4.3 today -we will discontinue KCl 6. Thrombocytopenia -Platelets:180 today -Alcohol versus sepsis -DIC panel, PF4 antibodies. Both negative -She is continues to be off Lovenox 7. Cough -No cough -She was given Robitussin syrup 8. Home medications -Continue home medications as required We will monitor her overnight for any episodeo of fever or diarrhea given her high risk of re-addmission. We will discharge if she is stable. DVT PPx: only ALPS FC Problem List: 1. Cough 2. Alcohol dependence 3. Fever of unknown origin 4. Thrombocytopenia 5. Pyelonephritis Pain Ratin Pain Location: na Pain Goal: Remain pain free Pain Plan: na Tomorrow's Labs & Rationales: Tab Patino 03/29/18 1107: Attending Review Statement Attending Statement Attending MD Statement: examined this patient, discuss w/resident/PA/VERTICAL BORER, agreed w/resident/PA/VERTICAL BORER, discussed with family, reviewed EMR data (avail), discussed with nursing, discussed with case mgmt, reviewed images, amended to note Attending Assessment/Plan: AFebrile in past 48 hrs. BP stable HR 80-90 with negative cultures. Absent leukocytosis. Few episodes of loose stools. ID discontinued antibiotics. Follow up stool studies PCR negative for C diff. Stool elastase pending. ??chronic pancreatitis. GI consult. Pleural effusion bilateral and ascites without cirrhosis likely fluid overload stable. PO fluids Thrombocytopenia stable/improving monitor. d/hammad lovenox. encourage ambulation working with PT. Anticipate discharge in next 24 hrs if diarrhea improves and no fevers. FULL CODE.
[2018-03-29 08:59] LABS: ABSOLUTE BASOPHIL COUNT 0 /CUMM (0.0-0.2); ABSOLUTE EOSINOPHIL COUNT 0.1 /CUMM (0.0-0.7); ABSOLUTE GRANULOCYTE CT 9.3 /CUMM (1.4-6.5); ABSOLUTE LYMPH COUNT 1.1 /CUMM (1.2-3.4); ABSOLUTE MONOCYTE COUNT 0.4 /CUMM (0.10-0.60); BASOPHIL % 0.1 % (0.0-2.0); HEMATOCRIT 34.1 % (37-47); MEAN CORPUSCULAR HGB 30.8 PG (27.0-31.0); MEAN CORPUSCULAR HGB CONC 34.3 G/DL (33.0-37.0); MEAN CORPUSCULAR VOLUME 89.7 FL (81.0-99.0); MEAN PLATELET VOLUME 9.8 FL (7.4-10.4); PLATELET COUNT 242 /CUMM (130-400); RBC DISTRIBUTION WIDTH 14.4 % (11.5-14.5); WHITE BLOOD CELL COUNT 10.9 /CUMM (4.8-10.8)
[2018-03-29 09:30] LABS: GRANULOCYTE % 85.8 % (42.2-75.2)
--- NOTE | 2018-03-29 13:34 | PN- Infect Dx ---
Subjective Subjective: Afebrile. She feels improved with no further diarrhea. Her cough is also improved, but she does continue to note shortness of breath with exertion. Objective Last 24 Hrs of Vital Signs/I&O Vital Signs Date Time Temp Pulse Resp B/P B/P Pulse O2 O2 Flow FiO2 Mean Ox Delivery Rate 03/29 0957 71 130/60 03/29 0650 98.4 71 20 130/60 97 Room Air 03/28 2258 99.7 76 20 130/72 96 Room Air 03/28 1506 98.6 71 18 122/56 97 Intake & Output 03/29 1600 03/29 0800 03/29 0000 Intake Total 50 Output Total Balance 50 Intake, Oral 50 Number 1 Bowel Movements Physical Exam Other Physical Findings: She appears comfortable in no acute distress Lungs decreased breath sounds at the left base Heart regular rhythm with no murmur Abdomen is soft, nontender with positive bowel sounds Results Last 24 Hours of Lab Results: Laboratory Tests 03/29 0825 Chemistry Sodium (137 - 145 mmol/L) 132 L Potassium (3.5 - 5.1 mmol/L) 3.8 Chloride (98 - 107 mmol/L) 100 Carbon Dioxide (22 - 30 mmol/L) 21 L Anion Gap (5 - 16) 11 BUN (7 - 17 mg/dL) 3 L Creatinine (0.5 - 1.0 mg/dL) 0.3 L Estimated GFR (>60 ml/min) > 60 BUN/Creatinine Ratio (7 - 25 %) 10.0 Hematology CBC w Diff NO MAN DIFF REQ WBC (4.8 - 10.8 /CUMM) 10.9 H RBC (4.20 - 5.40 /CUMM) 3.80 L Hgb (12.0 - 16.0 G/DL) 11.7 L Hct (37 - 47 %) 34.1 L MCV (81.0 - 99.0 FL) 89.7 MCH (27.0 - 31.0 PG) 30.8 MCHC (33.0 - 37.0 G/DL) 34.3 RDW (11.5 - 14.5 %) 14.4 Plt Count (130 - 400 /CUMM) 242 MPV (7.4 - 10.4 FL) 9.8 Gran % (42.2 - 75.2 %) 85.8 H Lymphocytes % (20.5 - 51.1 %) 9.8 L Monocytes % (1.7 - 9.3 %) 3.3 Eosinophils % (0 - 5 %) 1.0 Basophils % (0.0 - 2.0 %) 0.1 Absolute Granulocytes (1.4 - 6.5 /CUMM) 9.3 H Absolute Lymphocytes (1.2 - 3.4 /CUMM) 1.1 L Absolute Monocytes (0.10 - 0.60 /CUMM) 0.4 Absolute Eosinophils (0.0 - 0.7 /CUMM) 0.1 Absolute Basophils (0.0 - 0.2 /CUMM) 0 Last 24 Hours of Efrain Results: Urine culture March 27 negative Assessment/Plan ID Impression: Improved, with no further diarrhea, and with her temperatures remaining normal off antibiotics. Her white blood cell count is slightly elevated today, of unclear significance. Her respiratory status remains stable, with overall improvement in her cough. Suggestion: 1. Follow-up of the right kidney process noted on her CT scans as an outpatient 2. Continue to follow off antibiotics
[2018-03-29 14:18] VITALS: BP 100/60
--- NOTE | 2018-03-29 15:33 | Patient Discharge Instructions ---
Discharge Instructions General Discharge Information You were seen/treated for: Pyelonephritis Diarrhea Watch for these problems: Diarrhea, Fever, Dizziness Special Instructions: 1. Please see your primary care physician within a week of your discharge Diet Continue normal diet: Yes Activity Full Activity/No Limits: Yes Acute Coronary Syndrome Inclusion Criteria At DC or during hospital stay patient has or had the following: ACS DIAGNOSIS No Discharge Core Measures Meds if any: Prescribed or Continued at Discharge Meds if any: NOT Prescribed or Continued at Discharge Congestive Heart Failure Inclusion Criteria At DC or during hospital stay patient has or had the following: CHF DIAGNOSIS No Discharge Core Measures Meds if any: Prescribed or Continued at Discharge Meds if any: NOT Prescribed or Continued at Discharge Cerebrovascular accident Inclusion Criteria At DC or during hospital stay patient has or had the following: CVA/TIA Diagnosis No Discharge Core Measures Meds if any: Prescribed or Continued at Discharge Meds if any: NOT Prescribed or Continued at Discharge Venous thromboembolism Inclusion Criteria VTE Diagnosis No VTE Type NONE VTE Confirmed by (Test) NONE Discharge Core Measures - Per Current guidelines, there needs to be overlap - treatment for the first 5 days of Warfarin therapy. - If discharged on Warfarin prior to 5 days of - overlap therapy, the patient will need to be - assessed for post discharge needs including - *Post discharge parental anticoagulation - *Warfarin and/or parental anticoagulation education - *Follow up date to check INR post discharge At least 5 days overlap therapy as Inpatient No Meds if any: Prescribed or Continued at Discharge Note: Overlap Therapy is Warfarin and Anticoagulant Meds if any: NOT Prescribed or Continued at Discharge
--- NOTE | 2018-03-29 15:38 | Discharge Summary ---
Hospital Course Allergies: Coded Allergies: NO KNOWN ALLERGIES (06/23/14) Discharge Instructions Medications at Discharge Discharge Medications: Continue taking these medications: Amlodipine Besylate (Norvasc) 5 MG TABLET 1 Tablet ORAL DAILY Comments: Last Taken: 03/16/18 Time: 10:00AM Escitalopram Oxalate (Lexapro) 20 MG TABLET 1.5 Tablet ORAL DAILY Comments: Last Taken: 03/16/18 Time: 10:00AM Multivitamin (One Daily Multivitamin) 1 EACH TABLET 1 Tablet ORAL DAILY Qty = 30 Instructions: . Comments: Last Taken:11/26/17 Time:8:25AM NOT GIVEN THIS ADMISSION Folic Acid (Folic Acid) 1 MG TABLET 1 Milligram ORAL DAILY Days = 30 Comments: Last Taken: 03/16/18 Time: 10:00AM
--- NOTE | 2018-03-29 18:03 | Cons- Gastroenterology ---
General Information and HPI Consulting Request Date of Consult: 03/29/18 Requested By: Tab Johnson MD Reason for Consult: Diarrhea Allergies/Medications Allergies: Coded Allergies: NO KNOWN ALLERGIES (06/23/14) Home Med List: Amlodipine Besylate (Norvasc) 5 MG TABLET 1 TAB PO DAILY BP (Reported) Escitalopram Oxalate (Lexapro) 20 MG TABLET 1.5 TAB PO DAILY MENTAL HEALTH ( Reported) Folic Acid 1 MG TABLET 1 MG PO DAILY anemia Multivitamin (One Daily Multivitamin) 1 EACH TABLET 1 TAB PO DAILY supplement . Current Medications: Current Medications Sig/Dino Start time Last Medication Dose Route Stop Time Status Admin Acetaminophen 650 MG Q6P PRN 03/21 1800 AC 03/25 PO 2352 Acetaminophen 1,000 MG Q6P PRN 03/21 1800 AC 03/26 IV 2101 Amlodipine Besylate 5 MG DAILY 03/21 204 AC 03/29 PO 0957 Escitalopram Oxalate 20 MG DAILY 03/21 204 AC 03/29 PO 0957 Guaifenesin/ 10 ML Q4P PRN 03/26 1030 AC 03/26 Dextromethorphan PO 1134 Lorazepam See Dose Q1P PRN 03/21 1815 DC 03/23 Insts (1) IV 0714 Oxycodone/ 1 TAB Q6P PRN 03/21 1800 AC Acetaminophen PO Ramelteon 8 MG AT BEDTIME NEED.. 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 Psychosocial History Who Do You Live With? self Services at Home: None Primary Language: Indonesian Smoking Status: Current Everyday Smoker ETOH Use: alcoholic Illicit Drug Use: denies illicit drug use Functional Ability ADLs Independent: dressing, eating, toileting, bathing. Ambulation: independent IADLs Independent: shopping, housework, finances, food prep, telephone, transportation , medication admin. Employment History Employment: Disability Exam & Diagnostic Data Vital Signs and I&O Vital Signs Date Time Temp Pulse Resp B/P B/P Pulse O2 O2 Flow FiO2 Mean Ox Delivery Rate 03/29 1418 98.5 77 18 100/60 97 Room Air 03/29 0957 71 130/60 03/29 0650 98.4 71 20 130/60 97 Room Air 03/28 2258 99.7 76 20 130/72 96 Room Air Intake & Output 03/29 1600 03/29 0400 03/28 1600 03/28 0400 03/27 1600 03/27 0400 Intake Total 158 62 [id number] 985 9630 1200 Output Total 200 Balance 140 54 [id number] 482 4318 1200 Intake, IV 10 2407 752 1921 800 Intake, Oral 350 50 760 360 400 Number 3 4 3 50 3 Bowel Movements Output, Stool 100 Output, Urine 100 Results Pertinent Lab Results: Laboratory Tests 03/29 03/28 0825 0945 Chemistry Sodium (137 - 145 mmol/L) 132 L Potassium (3.5 - 5.1 mmol/L) 3.8 Chloride (98 - 107 mmol/L) 100 Carbon Dioxide (22 - 30 mmol/L) 21 L Anion Gap (5 - 16) 11 BUN (7 - 17 mg/dL) 3 L Creatinine (0.5 - 1.0 mg/dL) 0.3 L Estimated GFR (>60 ml/min) > 60 BUN/Creatinine Ratio (7 - 25 %) 10.0 C-Reactive Prot, Quant (<1.0 mg/dL) 4.3 H C-React Prot High Sens (1.0 - 3.0 mg/L) > 15.0 H Hematology CBC w Diff NO MAN DIFF REQ WBC (4.8 - 10.8 /CUMM) 10.9 H RBC (4.20 - 5.40 /CUMM) 3.80 L Hgb (12.0 - 16.0 G/DL) 11.7 L Hct (37 - 47 %) 34.1 L MCV (81.0 - 99.0 FL) 89.7 MCH (27.0 - 31.0 PG) 30.8 MCHC (33.0 - 37.0 G/DL) 34.3 RDW (11.5 - 14.5 %) 14.4 Plt Count (130 - 400 /CUMM) 242 MPV (7.4 - 10.4 FL) 9.8 Gran % (42.2 - 75.2 %) 85.8 H Lymphocytes % (20.5 - 51.1 %) 9.8 L Monocytes % (1.7 - 9.3 %) 3.3 Eosinophils % (0 - 5 %) 1.0 Basophils % (0.0 - 2.0 %) 0.1 Absolute Granulocytes (1.4 - 6.5 /CUMM) 9.3 H Absolute Lymphocytes (1.2 - 3.4 /CUMM) 1.1 L Absolute Monocytes (0.10 - 0.60 /CUMM) 0.4 Absolute Eosinophils (0.0 - 0.7 /CUMM) 0.1 Absolute Basophils (0.0 - 0.2 /CUMM) 0 ESR Westergren (0 - 20 MM) 45 H 03/28 03/27 0756 1600 Chemistry Sodium (137 - 145 mmol/L) 132 L Potassium (3.5 - 5.1 mmol/L) 4.3 Chloride (98 - 107 mmol/L) 102 Carbon Dioxide (22 - 30 mmol/L) 19 L Anion Gap (5 - 16) 11 BUN (7 - 17 mg/dL) 2 L Creatinine (0.5 - 1.0 mg/dL) 0.3 L Estimated GFR (>60 ml/min) > 60 BUN/Creatinine Ratio (7 - 25 %) 6.7 L Hematology CBC w Diff NO MAN DIFF REQ WBC (4.8 - 10.8 /CUMM) 9.9 RBC (4.20 - 5.40 /CUMM) 3.55 L Hgb (12.0 - 16.0 G/DL) 10.8 L Hct (37 - 47 %) 32.1 L MCV (81.0 - 99.0 FL) 90.3 MCH (27.0 - 31.0 PG) 30.5 MCHC (33.0 - 37.0 G/DL) 33.7 RDW (11.5 - 14.5 %) 14.6 H Plt Count (130 - 400 /CUMM) 180 MPV (7.4 - 10.4 FL) 10.4 Gran % (42.2 - 75.2 %) 82.3 H Lymphocytes % (20.5 - 51.1 %) 10.5 L Monocytes % (1.7 - 9.3 %) 5.9 Eosinophils % (0 - 5 %) 1.2 Basophils % (0.0 - 2.0 %) 0.1 Absolute Granulocytes (1.4 - 6.5 /CUMM) 8.1 H Absolute Lymphocytes (1.2 - 3.4 /CUMM) 1.0 L Absolute Monocytes (0.10 - 0.60 /CUMM) 0.6 Absolute Eosinophils (0.0 - 0.7 /CUMM) 0.1 Absolute Basophils (0.0 - 0.2 /CUMM) 0 Urines Urine Color (YEL,AMB,STR) YEL Urine Clarity (CLEAR) CLEAR Urine pH (5.0 - 8.0) 6.5 Ur Specific [place] (1.001 - 1.035) 1.020 Urine Protein (NEG,<30 MG/DL) NEG Urine Ketones (NEG) 15 H Urine Nitrite (NEG) NEG Urine Bilirubin (NEG) NEG Urine Urobilinogen (0.1 - 1.0 EU/dl) 0.2 Ur Leukocyte Esterase (NEG) NEG Ur Microscopic SEDIMENT EXAMINED Urine RBC (0 - 5 /HPF) 15-25 H Urine WBC (0 - 2 /HPF) RARE Ur Epithelial Cells (NONE,FEW) RARE Urine Bacteria (NEG/NONE) RARE H Urine Mucus (FEW,NONE) FEW Urine Hemoglobin (NEG) LARGE H Urine Glucose (N MG/DL) NEG 03/27 03/27 1225 0910 Other Body Source Stool Lactoferrin Pending Stl Pancreat Elastase 1 Pending Serology C. difficile Tox B Gene (NOT DETECTED) NOT DETECTED 03/27 0730 Chemistry Sodium (137 - 145 mmol/L) 133 L Potassium (3.5 - 5.1 mmol/L) 4.2 Chloride (98 - 107 mmol/L) 106 Carbon Dioxide (22 - 30 mmol/L) 19 L Anion Gap (5 - 16) 8 BUN (7 - 17 mg/dL) 3 L Creatinine (0.5 - 1.0 mg/dL) 0.3 L Estimated GFR (>60 ml/min) > 60 BUN/Creatinine Ratio (7 - 25 %) 10.0 Hematology CBC w Diff NO MAN DIFF REQ WBC (4.8 - 10.8 /CUMM) 6.5 RBC (4.20 - 5.40 /CUMM) 3.43 L Hgb (12.0 - 16.0 G/DL) 10.6 L Hct (37 - 47 %) 30.9 L MCV (81.0 - 99.0 FL) 90.1 MCH (27.0 - 31.0 PG) 31.0 MCHC (33.0 - 37.0 G/DL) 34.4 RDW (11.5 - 14.5 %) 14.6 H Plt Count (130 - 400 /CUMM) 138 MPV (7.4 - 10.4 FL) 10.4 Gran % (42.2 - 75.2 %) 73.8 Lymphocytes % (20.5 - 51.1 %) 18.1 L Monocytes % (1.7 - 9.3 %) 5.4 Eosinophils % (0 - 5 %) 2.4 Basophils % (0.0 - 2.0 %) 0.3 Absolute Granulocytes (1.4 - 6.5 /CUMM) 4.8 Absolute Lymphocytes (1.2 - 3.4 /CUMM) 1.2 Absolute Monocytes (0.10 - 0.60 /CUMM) 0.4 Absolute Eosinophils (0.0 - 0.7 /CUMM) 0.2 Absolute Basophils (0.0 - 0.2 /CUMM) 0 Assessment/Plan Assessment/Recommendations: Acute diarrhea, while hospitalized. This was likely due to antibiotics, acute infectious illness. The patient denies antecedent GI symptoms including diarrhea. The patient has not had a bowel movement today after the cessation of antibiotics and treatment of underlying infection. Recent acute pancreatitis, likely secondary to alcohol. No evidence of residual inflammation (pain-free, improvement on CT scan). Presence of ascites noted. Recommendations: * Regular diet * Observe overnight for the redevelopment of diarrhea, and consider discharge if none. * GI outpatient follow-up following discharge. Consult Acknowledgment - Thank you for your consult request.
[2018-03-29 22:04] VITALS: BP 128/80
[2018-03-30 06:35] VITALS: BP 102/64
[2018-03-30 08:12] VITALS: BP 102/64
[2018-03-30 11:27] LABS: ABSOLUTE BASOPHIL COUNT 0 /CUMM (0.0-0.2); ABSOLUTE EOSINOPHIL COUNT 0 /CUMM (0.0-0.7); ABSOLUTE GRANULOCYTE CT 7.2 /CUMM (1.4-6.5); ABSOLUTE LYMPH COUNT 0.9 /CUMM (1.2-3.4); ABSOLUTE MONOCYTE COUNT 0.5 /CUMM (0.10-0.60); BASOPHIL % 0 % (0.0-2.0); EOSINOPHIL % 0.5 % (0-5); GRANULOCYTE % 83.6 % (42.2-75.2); HEMATOCRIT 37.1 % (37-47); MEAN CORPUSCULAR HGB 30.7 PG (27.0-31.0); MEAN CORPUSCULAR VOLUME 90.3 FL (81.0-99.0); PLATELET COUNT 288 /CUMM (130-400); RBC DISTRIBUTION WIDTH 14.5 % (11.5-14.5); RED BLOOD CELL CT 4.11 /CUMM (4.20-5.40); WHITE BLOOD CELL COUNT 8.7 /CUMM (4.8-10.8)
--- NOTE | 2018-03-30 11:46 | PN- Housestaff ---
Nico Gill 03/30/18 1146: Subjective Follow-up For: Final nephritis, fever of unknown origin, diarrhea Subjective: Patient seen and examined at bedside. She denies fever, chills, diarrhea, constipation, chest pain, palpitation, burning micturition Review of Systems Constitutional: Reports: see HPI. Objective Last 24 Hrs of Vital Signs/I&O Vital Signs Date Time Temp Pulse Resp B/P B/P Pulse O2 O2 Flow FiO2 Mean Ox Delivery Rate 03/30 0812 98.5 03/30 0812 66 102/64 03/30 0635 94.0 66 18 102/64 95 03/29 2204 98.4 74 18 128/80 96 Intake & Output 03/30 1600 03/30 0800 03/30 0000 Intake Total 0 300 Output Total 250 Balance 0 50 Intake, IV 0 Intake, Oral 0 300 Number 1 1 Bowel Movements Output, Urine 250 Physical Exam General Appearance: Alert, Oriented X3, Cooperative Assessment/Plan Assessment: 62 YO female with a PMHx. of alcohol dependence, anxiety, depression, and HTN is admitted to the [facility] for the evaluation anf treatment of presumed pyelonephritis. Her first set of urine cultures were contaminated. Blood cultures are negative. She has been having multiple bowel movments since yesterday. She was afebrile overnight. Her blood pressure has been in the normal range. She does not have tachycardia anymore. She has been getting out of bed, moving about without complaints. No diarrhea overnight. White blood count:9.9 Creatinine: 0.3 Platelets are 180 today, Na: 134, K: 4.3. Her PT is 14.8, INR: 1.35, fibrinogen: 425, Ddimer: 174. HIP antibody negative , HEP PF4 is negative Problems list: Pyelonephritis Fever of unknown origin Alcohol dependency Hypomagnesemia Hypokalemia Pyelonephritis: -Pain resolved. Two sets of blood cultures negative. Urine culture is negative -ID consult appreciated. Stop ceftriaxone -Fluids discontinued. - Pain management (Tylenol PO, Tylenol IV, Percocet 1 tab) according to prn pain scales - Trend CBC Fever of unknown origin: -She is afebrile -CT showed new pleural effusion, ascites, CXR showed questioanble multilobar pneumonia -WBC count 9.9 -ID consult appreciated. C.diff PCR negative Vancomycin 125 mg p.o. stopped Chest X-ray showed b/l pleural effusion unchanged from her previous CT 4 days ago Urine culture was positive for hematuria and urine ketones 3.Hypomagnesemia(resolved) -Repleted 4.Alcohol Dependence -CIWA discontinued - Did not show any symptoms of withdrawal during hospital stay Hypokalemia: -Resolved -Potassium is 4.3 today -we will discontinue KCl Home medications -Continue home medications as required We will monitor her overnight for any episodeo of fever or diarrhea given her high risk of re-addmission. -Patient discharged -1 tablet 0.5 mg ATIVAN given at the time of discharge DVT PPx: only ALPS FC Problem List: 1. Alcohol withdrawal 2. Hypokalemia 3. Hypomagnesemia 4. Fever of unknown origin 5. Cough 6. Pyelonephritis Pain Ratin Pain Location: No pain Pain Goal: Remain pain free Pain Plan: No pain Tomorrow's Labs & Rationales: Labs Geno HAMLIN,[facility] 03/30/18 1305: Attending MD Review Statement Attending Statement Attending MD Statement: examined this patient, discuss w/resident/PA/IT PORTFOLIO MANAGER, agreed w/resident/PA/IT PORTFOLIO MANAGER, reviewed EMR data (avail), discussed with nursing Attending Assessment/Plan: Pt was seen and evaluated. Remained afebrile off of abx. Appreciate JUNI villareal plan for D/C today
--- NOTE | 2018-03-30 13:16 | PN- Gastroenterology ---
Assessment/Plan GI Assessment/Recommendations: Acute diarrhea, while hospitalized. Resolved. Recent acute pancreatitis, secondary to alcohol, resolved. Recommendations: * Continue regular diet * Agree with discharge. Follow-up in my office within one month. Thank you very much for having allowed GI participation in this patient's care. Please call or reconsult as needed. Subjective Subjective: 2 small and non-watery stools. No abdominal pain. Good appetite. No nausea or vomiting. Objective Vital Signs and I&Os Vital Signs Date Time Temp Pulse Resp B/P B/P Pulse O2 O2 Flow FiO2 Mean Ox Delivery Rate 03/30 812 98.5 03/30 08 66 102/64 03/30 0635 94.0 66 18 102/64 95 03/29 2204 98.4 74 18 128/80 96 03/29 1418 98.5 77 18 100/60 97 Room Air Intake & Output 03/30 0400 03/29 1600 03/29 0400 03/28 1600 03/28 0400 Intake Total 0 300 081 55 9462 760 Output Total 250 Balance 0 50 277 97 2453 760 Intake, IV 0 10 1010 400 Intake, Oral 0 300 350 50 760 360 Number 1 1 3 4 3 Bowel Movements Output, Urine 250 Physical Exam: Alert and oriented. Sclera anicteric. No oropharyngeal lesion. No adenopathy. Abdomen soft, nondistended, nontender, without organomegaly or mass. Extremities without edema. Current Medications: Current Medications Sig/Dino Start time Last Medication Dose Route Stop Time Status Admin Acetaminophen 650 MG Q6P PRN 03/21 1800 AC 03/25 PO 2352 Acetaminophen 1,000 MG Q6P PRN 03/21 1800 AC 03/26 IV 2101 Amlodipine Besylate 5 MG DAILY 03/21 2041 AC 03/30 PO 0812 Escitalopram Oxalate 20 MG DAILY 03/21 2041 AC 03/30 PO 0810 Guaifenesin/ 10 ML Q4P PRN 03/26 1030 AC 03/26 Dextromethorphan PO 1134 Oxycodone/ 1 TAB Q6P PRN 03/21 1800 AC Acetaminophen PO Ramelteon 8 MG AT BEDTIME NEED.. 03/28 2015 AC 03/29 PO 2000 Zinc Oxide 1 ALBERTO TIDPRN 03/25 2245 03/29 [facility] 2001 Results Pertinent Lab Results: Laboratory Tests 03/30 03/29 1012 0825 Chemistry Sodium (137 - 145 mmol/L) 135 L 132 L Potassium (3.5 - 5.1 mmol/L) 3.8 3.8 Chloride (98 - 107 mmol/L) 97 L 100 Carbon Dioxide (22 - 30 mmol/L) 23 21 L Anion Gap (5 - 16) 15 11 BUN (7 - 17 mg/dL) 3 L 3 L Creatinine (0.5 - 1.0 mg/dL) 0.3 L 0.3 L Estimated GFR (>60 ml/min) > 60 > 60 BUN/Creatinine Ratio (7 - 25 %) 10.0 10.0 Hematology CBC w Diff MAN DIFF ORDERED NO MAN DIFF REQ WBC (4.8 - 10.8 /CUMM) 8.7 10.9 H RBC (4.20 - 5.40 /CUMM) 4.11 L 3.80 L Hgb (12.0 - 16.0 G/DL) 12.6 11.7 L Hct (37 - 47 %) 37.1 34.1 L MCV (81.0 - 99.0 FL) 90.3 89.7 MCH (27.0 - 31.0 PG) 30.7 30.8 MCHC (33.0 - 37.0 G/DL) 34.0 34.3 RDW (11.5 - 14.5 %) 14.5 14.4 Plt Count (130 - 400 /CUMM) 288 242 MPV (7.4 - 10.4 FL) 10.0 9.8 Gran % (42.2 - 75.2 %) 83.6 H 85.8 H Lymphocytes % (20.5 - 51.1 %) 10.5 L 9.8 L Monocytes % (1.7 - 9.3 %) 5.4 3.3 Eosinophils % (0 - 5 %) 0.5 1.0 Basophils % (0.0 - 2.0 %) 0 0.1 Absolute Granulocytes (1.4 - 6.5 /CUMM) 7.2 H 9.3 H Absolute Lymphocytes (1.2 - 3.4 /CUMM) 0.9 L 1.1 L Absolute Monocytes (0.10 - 0.60 /CUMM) 0.5 0.4 Absolute Eosinophils (0.0 - 0.7 /CUMM) 0 0.1 Absolute Basophils (0.0 - 0.2 /CUMM) 0 0 Platelet Estimate (ADEQUATE) VERIFIED BY SMEAR Polychromasia 1+ Stomatocytes 1+ 03/28 03/28 0945 9146 Chemistry Sodium (137 - 145 mmol/L) 132 L Potassium (3.5 - 5.1 mmol/L) 4.3 Chloride (98 - 107 mmol/L) 102 Carbon Dioxide (22 - 30 mmol/L) 19 L Anion Gap (5 - 16) 11 BUN (7 - 17 mg/dL) 2 L Creatinine (0.5 - 1.0 mg/dL) 0.3 L Estimated GFR (>60 ml/min) > 60 BUN/Creatinine Ratio (7 - 25 %) 6.7 L C-Reactive Prot, Quant (<1.0 mg/dL) 4.3 H C-React Prot High Sens (1.0 - 3.0 mg/L) > 15.0 H Hematology CBC w Diff NO MAN DIFF REQ WBC (4.8 - 10.8 /CUMM) 9.9 RBC (4.20 - 5.40 /CUMM) 3.55 L Hgb (12.0 - 16.0 G/DL) 10.8 L Hct (37 - 47 %) 32.1 L MCV (81.0 - 99.0 FL) 90.3 MCH (27.0 - 31.0 PG) 30.5 MCHC (33.0 - 37.0 G/DL) 33.7 RDW (11.5 - 14.5 %) 14.6 H Plt Count (130 - 400 /CUMM) 180 MPV (7.4 - 10.4 FL) 10.4 Gran % (42.2 - 75.2 %) 82.3 H Lymphocytes % (20.5 - 51.1 %) 10.5 L Monocytes % (1.7 - 9.3 %) 5.9 Eosinophils % (0 - 5 %) 1.2 Basophils % (0.0 - 2.0 %) 0.1 Absolute Granulocytes (1.4 - 6.5 /CUMM) 8.1 H Absolute Lymphocytes (1.2 - 3.4 /CUMM) 1.0 L Absolute Monocytes (0.10 - 0.60 /CUMM) 0.6 Absolute Eosinophils (0.0 - 0.7 /CUMM) 0.1 Absolute Basophils (0.0 - 0.2 /CUMM) 0 ESR Westergren (0 - 20 MM) 45 H 03/27 1600 Urines Urine Color (YEL,AMB,STR) YEL Urine Clarity (CLEAR) CLEAR Urine pH (5.0 - 8.0) 6.5 Ur Specific [place] (1.001 - 1.035) 1.020 Urine Protein (NEG,<30 MG/DL) NEG Urine Ketones (NEG) 15 H Urine Nitrite (NEG) NEG Urine Bilirubin (NEG) NEG Urine Urobilinogen (0.1 - 1.0 EU/dl) 0.2 Ur Leukocyte Esterase (NEG) NEG Ur Microscopic SEDIMENT EXAMINED Urine RBC (0 - 5 /HPF) 15-25 H Urine WBC (0 - 2 /HPF) RARE Ur Epithelial Cells (NONE,FEW) RARE Urine Bacteria (NEG/NONE) RARE H Urine Mucus (FEW,NONE) FEW Urine Hemoglobin (NEG) LARGE H Urine Glucose (N MG/DL) NEG
--- NOTE | 2018-03-31 15:47 | ECHOCARDIOGRAM REPORT ---
JOSSELINE HILARIO Age: 62 : 1955 Gender: F Exam Date: 03/30/2018 08:52 Exam Location: [address] Ht (in): 63 Wt (lb): 148 BSA: 1.74 BP: 120 / 84 Ordering Physician: Felecia Miller MD Referring Physician: Felecia Miller MD Technologist: Luz Maria Burnette [facility] Room Number: [id number] Indications: Rhythm: Sinus Technical Quality: good FINDINGS Left Ventricle Normal left ventricular size, wall thickness and systolic function with no obvious regional wall motion abnormalities. Normal left ventricular diastolic filling pattern for age. The ejection fraction is visually estimated at 65%. Right Ventricle The right ventricle is normal in size and function. Right Atrium The right atrium is normal in size. Left Atrium The left atrium is normal in size. The interatrial septum is intact. Mitral Valve The mitral valve is normal in structure and function. There is no mitral regurgitation. Aortic Valve Structurally normal aortic valve without significant sclerosis or stenosis. There is no aortic regurgitation. Tricuspid Valve The tricuspid valve is normal in structure and function. There is trace tricuspid regurgitation. Pulmonary artery systolic pressure is normal. Pulmonic Valve Structurally normal pulmonic valve. There is no pulmonic regurgitation. Pericardium Normal pericardium without effusion. Left pleural effusion Great Vessels Normal aortic root dimension. The aortic arch and great vessels are well seen and are normal. CONCLUSIONS Normal left ventricular size, wall thickness and systolic function with no obvious regional wall motion abnormalities. Normal left ventricular diastolic filling pattern for age. The ejection fraction is visually estimated at 65%. There is trace tricuspid regurgitation. Pulmonary artery systolic pressure is normal. Left pleural effusion. Edgar Haskins M.D. (Electronically Signed) Final Date: 31 March 2018 15:46 MEASUREMENTS (Male / Female) Normal Values 2D ECHO LV Diastolic Diameter PLAX 3.6 cm 4.2 - 5.9 / 3.9 - 5.3 cm LV Systolic Diameter PLAX 2.3 cm 2.1 - 4.0 cm LV Fractional Shortening PLAX 36.1 % 25 - 46 % LV Ejection Fraction 2D Teich 66.7 % IVS Diastolic Thickness 0.7 cm LVPW Diastolic Thickness 0.8 cm LV Relative Wall Thickness 0.4 LVOT Diameter 2.0 cm Aortic Root Diameter 2.6 cm LA Systolic Diameter LX 2.1 cm 3.0 - 4.0 / 2.7 - 3.8 cm LA Volume 53.0 cm 18 - 58 / 22 - 52 cm DOPPLER AV Peak Velocity 134.0 cm/s AV Peak Gradient 7.2 mmHg LVOT Peak Velocity 99.2 cm/s LVOT Peak Gradient 3.9 mmHg AV Area Cont Eq pk 2.3 cm Mitral E Point Velocity 82.4 cm/s Mitral A Point Velocity 89.3 cm/s Mitral E to A Ratio 0.9 MV Deceleration Time 363.0 ms TR Peak Velocity 209.0 cm/s TR Peak Gradient 17.5 mmHg PV Peak Velocity 90.9 cm/s PV Peak Gradient 3.3 mmHg LV E' Lateral Velocity 10.2 cm/s Mitral E to LV E' Lateral Ratio 8.1 LV E' Septal Velocity 8.2 cm/s Mitral E to LV E' Septal Ratio 10.1
== END 2018-03-30 14:20 | DRG 690 ==
LOC: ERH 01:38 → ERHI 05:17 → 2NA 17:45 → ERHI 17:45 → CANBEDREQ 18:11 → ERHI 18:17 → ENRESERV 18:31 → ENTRNSPT 19:03 → EDTRNSPTSTS 19:18 → EDTRNSPT 19:18 → 2NA 19:19 → CMPTRNSPT 19:42 → 2NA 03-22 07:56 → ENPENDDIS 03-30 11:02 → ENTRNSPT 03-30 14:06 → EDTRNSPTSTS 03-30 14:13 → EDTRNSPT 03-30 14:13 → 2NA 03-30 14:20 → CMPTRNSPT 03-30 14:42
PROVIDERS: Emergency Medicine; Hospitalist; Internal Medicine; Student in an Organized Health Care Education/Training Program
DX: N10 Acute pyelonephritis (principal); K52.1 Toxic gastroenteritis and colitis; F10.239 Alcohol dependence with withdrawal, unspecified; I95.9 Hypotension, unspecified; D69.6 Thrombocytopenia, unspecified; E83.42 Hypomagnesemia; R50.9 Fever, unspecified; F41.9 Anxiety disorder, unspecified; K70.10 Alcoholic hepatitis without ascites; F32.9 Major depressive disorder, single episode, unspecified; I10 Essential (primary) hypertension; Y90.0 Blood alcohol level of less than 20 mg/100 ml; E87.6 Hypokalemia; T36.95XA Adverse effect of unspecified systemic antibiotic, initial encounter; Y92.230 Patient room in hospital as the place of occurrence of the external cause; F17.210 Nicotine dependence, cigarettes, uncomplicated
CPT/HCPCS: 2NAP; 2NASP; 87493; 36415; 36592; 71045; 71046; 74177; 80307; 81001; 82436; 83630; 87015; 87040; 87045; 87086; 87899; 87899-59; 93005; 93010; 93306; 96361; 96374; 96375; 96376; 97110-GO; 97116-GO; 97161-GP; 97530-GO; 99291; G0480; J0131; J0696; J1650; J1885; J2405; J3101; J3250; J3370; J7040

== ENCOUNTER 2018-04-29 02:50 | Emergency (ER) | payer SELFPAY ==
[~2018-04-29] VITALS: Ht 129.5 cm; Wt 45.4 kg
--- NOTE | 2018-04-29 02:57 | ED GI/GU/ABDOMINAL COMPLAINT ---
History of Present Illness General Chief Complaint: Nausea, Vomiting, Diarrhea Stated Complaint: BIBA +NV Source: patient Exam Limitations: no limitations Vital Signs & Intake/Output Vital Signs & Intake/Output Vital Signs Date Time Temp Pulse Resp B/P B/P Pulse O2 O2 Flow FiO2 Mean Ox Delivery Rate 04/29 0536 98.0 106 20 122/54 97 Room Air 04/29 0323 98.0 114 20 163/67 98 Room Air Allergies Coded Allergies: NO KNOWN ALLERGIES (06/23/14) Reconcile Medications Amlodipine Besylate (Norvasc) 5 MG TABLET 1 TAB PO DAILY BP (Reported) Escitalopram Oxalate (Lexapro) 20 MG TABLET 1.5 TAB PO DAILY MENTAL HEALTH ( Reported) Folic Acid 1 MG TABLET 1 MG PO DAILY anemia Multivitamin (One Daily Multivitamin) 1 EACH TABLET 1 TAB PO DAILY supplement . Ondansetron (Zofran Odt) 4 MG TAB.RAPDIS 1 TAB SL TID PRN NAUSEA Triage Nurses Notes Reviewed? yes ? n Is pt currently ? No Duration: hour(s):, waxing and waning Timing: recent history Location: epigastric, generalized abdomen Radiation: no radiation Activities at Onset: none Modifying Factors: Worsens With: movement, palpation, vomiting. Associated Symptoms: abdominal pain, nausea/vomiting HPI: 62 yo womanm h/o pancreatitis, with nausea, vomiting that began at 5pm, approximately 10 hours ago. She does not recall any incitiing ingestion. "It feels like I have pancreatitis." She notes no fever, chills, dyspnea, chest pain, dizziness. She is otherwise well. Past History Travel History Traveled to [place] past 21 day No Medical History Any Pertinent Medical History? see below for history Neurological: NONE EENT: EAR INFECTION Cardiovascular: hypertension Respiratory: NONE Gastrointestinal: pancreatitis Hepatic: NONE Renal: NONE Musculoskeletal: NONE Psychiatric: alcohol dependence, anxiety, depression, Adjustment disorder Endocrine: NONE Blood Disorders: NONE Cancer(s): NONE FIELD LOGISTICS COORDINATOR/Reproductive: NONE History of MRSA: No History of VRE: No History of CDIFF: No Surgical History Surgical History: Psychosocial History Who do you live with Patient/Self Services at Home None What is your primary language Belarusian Family History Family History, If Any: MOTHER (DM HTN). Hx Contributory? No Review of Systems Review of Systems Constitutional: Reports: no symptoms. EENTM: Reports: no symptoms. Respiratory: Reports: no symptoms. Cardiovascular: Reports: no symptoms. GI: Reports: no symptoms. Genitourinary: Reports: no symptoms. Musculoskeletal: Reports: no symptoms. Skin: Reports: no symptoms. Neurological/Psychological: Reports: no symptoms. Hematologic/Endocrine: Reports: no symptoms. Immunologic/Allergic: Reports: no symptoms. All Other Systems: Reviewed and Negative Physical Exam Physical Exam General Appearance: well developed/nourished, mild distress Head: atraumatic, normal appearance Eyes: Bilateral: normal appearance. Ears, Nose, Throat, Mouth: hearing grossly normal, moist mucous membrane Neck: normal inspection, supple, full range of motion Respiratory: normal breath sounds, chest non-tender, no respiratory distress, quiet respiration, lungs clear Cardiovascular: regular rate/rhythm Gastrointestinal: normal bowel sounds, soft, non-tender, no organomegaly Back: normal inspection, normal range of motion Extremities: normal range of motion Neurologic/Psych: no motor/sensory deficits, awake, alert, oriented x 3 Skin: intact, normal color, warm/dry Core Measures ACS in differential dx? No Sepsis Present: No Sepsis Focused Exam Completed? No Progress Differential Diagnosis: pancreatitis vs biliary dz vs food poisoning vs other. Plan of Care: Orders Procedure Date/time Status LACTIC ACID 04/29 0557 Complete TROPONIN LEVEL 04/29 257 Complete LIPASE 04/29 257 Complete LACTIC ACID 04/29 257 Complete HEPATIC FUNCTION PANEL 04/29 257 Complete CBC WITHOUT DIFFERENTIAL 04/29 257 Complete BASIC METABOLIC PANEL 04/29 257 Complete AMYLASE 04/29 257 Complete EKG 04/29 257 Active Laboratory Tests 04/29/18 0615: Lactic Acid 2.0 04/29/18 0310: Anion Gap 15, Estimated GFR > 60, BUN/Creatinine Ratio 4.0 L, Glucose 165 H, Lactic Acid 4.6 H, Calcium 9.4, Total Bilirubin 1.5 H, Direct Bilirubin 0.4, AST 72 H, ALT 31, Alkaline Phosphatase 159 H, Troponin I < 0.01, Total Protein 8.3 H, Albumin 4.4, Amylase 66, Lipase 98, CBC w Diff NO MAN DIFF REQ, RBC 4.64 , MCV 90.9, MCH 30.3, MCHC 33.4, RDW 17.5 H, MPV 7.8, Gran % 81.9 H, Lymphocytes % 11.8 L, Monocytes % 5.9, Eosinophils % 0.2, Basophils % 0.2, Absolute Granulocytes 6.9 H, Absolute Lymphocytes 1.0 L, Absolute Monocytes 0.5, Absolute Eosinophils 0, Absolute Basophils 0 04/29/18256: D-Dimer High Sensitivty Cancelled Diagnostic Imaging: Viewed by Me: Radiology Read, CT Scan. Discussed w/RAD: Radiology Read, CT Scan. Radiology Impression: PATIENT: JOSSELINE HILARIO PRESENT AGE: 62 PATIENT ACCOUNT NO: [id number] : 56 LOCATION: [facility] ORDERING PHYSICIAN: Alex Vera MD SERVICE DATE: 04/29/18 EXAM TYPE: CAT - CT ABD & PELVIS W/O IV CONTRAS EXAMINATION: CT ABDOMEN AND PELVIS WITHOUT CONTRAST CLINICAL INFORMATION: Abdominal pain. COMPARISON: CT abdomen/pelvis TECHNIQUE: Multidetector volumetric imaging was performed from the superior aspect of the liver through the pubic symphysis. Sagittal and coronal reformatted images were obtained on the technologist's workstation. DLP: 228 mGy -cm FINDINGS: LUNG BASES: Previously seen bilateral pleural effusions have since resolved. No focal lung consolidation. LIVER, GALLBLADDER, AND BILIARY TREE: Hepatomegaly. Diffuse hepatic steatosis, as before. No focal lesion. Moderate distention of the gallbladder, as before. No evidence of associated wall thickening, radiopaque stones, or pericholecystic fluid. PANCREAS: Unremarkable. SPLEEN: Unremarkable. ADRENAL GLANDS: No lesion. Gastric diverticulum abuts the left adrenal gland, as before. KIDNEYS AND URETERS: Previously described complex lesion in the right renal midpole is not appreciated on the current exam in the setting of noncontrast technique. No evidence of hydronephrosis. No evidence of renal calculi.. BLADDER: Unremarkable. GASTROINTESTINAL TRACT: Small fluid- containing diverticulum arising posteriorly from the gastric fundus (series 3, image 79) measuring up to 2.6 cm, as before. No evidence of bowel obstruction. Sigmoid colonic stool. Normal-appearing appendix in the right lower quadrant. ABDOMINAL WALL: No significant hernia is appreciated. LYMPH NODES: Normal. VASCULAR: Scattered atherosclerotic calcifications.. PELVIC VISCERA: Previously seen pelvic free fluid has essentially resolved. OSSEOUS STRUCTURES: Unremarkable. IMPRESSION: No acute intra-abdominal or pelvic pathology. Previously seen bilateral pleural effusions and pelvic free fluid of since resolved. Hepatomegaly with diffuse hepatic steatosis, as before. DICTATED BY: Donta Narayanan MD DATE/TIME DICTATED:04/29/18413 REVENUE INTEGRITY ANALYST:DALIA DATE/TIME TRANSCRIBED:04/29/18413 CONFIDENTIAL, DO NOT COPY WITHOUT APPROPRIATE AUTHORIZATION. <Electronically signed in Other Vendor System> SIGNED BY: Donta Narayanan MD 04/29/18426 CXR Impression: PATIENT: JOSSELINE HILARIO PRESENT AGE: 62 PATIENT ACCOUNT NO: [id number] : 56 LOCATION: [facility] ORDERING PHYSICIAN: Alex Vera MD SERVICE DATE: 04/29/18 EXAM TYPE: RAD - XRY- PORTABLE CHEST XRAY EXAMINATION: XR PORTABLE CHEST CLINICAL INFORMATION: Vomiting. COMPARISON: Chest radiograph 03/27/2018 TECHNIQUE: Portable frontal view of the chest was obtained. FINDINGS: Cardiac silhouette is within normal limits for size. No new focal lung opacity identified. Previously seen bilateral pleural effusions and associated bibasilar densities have essentially resolved. No pneumothorax. Regional osseous structures are grossly intact. IMPRESSION: No acute cardiopulmonary disease process. Previously seen bilateral pleural effusions and bibasilar atelectasis have essentially resolved. DICTATED BY: Donta Narayanan MD DATE/TIME DICTATED:04/29/18311 REVENUE INTEGRITY ANALYST:DALIA DATE/TIME TRANSCRIBED:04/29/18311 CONFIDENTIAL, DO NOT COPY WITHOUT APPROPRIATE AUTHORIZATION. <Electronically signed in Other Vendor System> SIGNED BY: Donta Narayanan MD 04/29/18317 Initial ED EKG: sinus, no acute changes Departure Departure Disposition: HOME OR SELF CARE Condition: Stable Clinical Impression Primary Impression: Abdominal pain Referrals: Krishna HAMLIN,He (PCP/Family) Departure Forms: Customer Survey General Discharge Information Prescriptions: Current Visit Scripts Ondansetron (Zofran Odt) 1 TAB SL TID PRN NAUSEA #10 TAB Comments 04/29/18, 7AM... pt feeling better... labs/ct scan benign.... discussed at length... she feels comfortable going home... close follow up advised. ED Attending Observation Initial Observation Note: I have seen and personally examined JOSSELINE HILARIO on 04/29/18 at 0720. I agree with the current emergency department documentation. The disposition (admission or discharge) is uncertain at this time, she needs a period of observation for the following reason(s): The ED Nurse caring for this patient has been personally informed as to what the patient is being observed for.
--- NOTE | 2018-04-29 03:18 | RADIOLOGY REPORT ---
EXAMINATION: XR PORTABLE CHEST CLINICAL INFORMATION: Vomiting. COMPARISON: Chest radiograph 03/27/2018 TECHNIQUE: Portable frontal view of the chest was obtained. FINDINGS: Cardiac silhouette is within normal limits for size. No new focal lung opacity identified. Previously seen bilateral pleural effusions and associated bibasilar densities have essentially resolved. No pneumothorax. Regional osseous structures are grossly intact. IMPRESSION: No acute cardiopulmonary disease process. Previously seen bilateral pleural effusions and bibasilar atelectasis have essentially resolved.
[2018-04-29 04:04] LABS: ABSOLUTE BASOPHIL COUNT 0 /CUMM (0.0-0.2); ABSOLUTE EOSINOPHIL COUNT 0 /CUMM (0.0-0.7); ABSOLUTE GRANULOCYTE CT 6.9 /CUMM (1.4-6.5); ABSOLUTE MONOCYTE COUNT 0.5 /CUMM (0.10-0.60); BASOPHIL % 0.2 % (0.0-2.0); EOSINOPHIL % 0.2 % (0-5); GRANULOCYTE % 81.9 % (42.2-75.2); HEMATOCRIT 42.2 % (37-47); MEAN CORPUSCULAR HGB 30.3 PG (27.0-31.0); MEAN CORPUSCULAR HGB CONC 33.4 G/DL (33.0-37.0); MEAN CORPUSCULAR VOLUME 90.9 FL (81.0-99.0); MEAN PLATELET VOLUME 7.8 FL (7.4-10.4); PLATELET COUNT 290 /CUMM (130-400); RBC DISTRIBUTION WIDTH 17.5 % (11.5-14.5); RED BLOOD CELL CT 4.64 /CUMM (4.20-5.40); WHITE BLOOD CELL COUNT 8.4 /CUMM (4.8-10.8)
--- NOTE | 2018-04-29 04:27 | CT SCAN REPORT ---
EXAMINATION: CT ABDOMEN AND PELVIS WITHOUT CONTRAST CLINICAL INFORMATION: Abdominal pain. COMPARISON: CT abdomen/pelvis 03/24/2018 TECHNIQUE: Multidetector volumetric imaging was performed from the superior aspect of the liver through the pubic symphysis. Sagittal and coronal reformatted images were obtained on the technologist's workstation. DLP: 228 mGy-cm FINDINGS: LUNG BASES: Previously seen bilateral pleural effusions have since resolved. No focal lung consolidation. LIVER, GALLBLADDER, AND BILIARY TREE: Hepatomegaly. Diffuse hepatic steatosis, as before. No focal lesion. Moderate distention of the gallbladder, as before. No evidence of associated wall thickening, radiopaque stones, or pericholecystic fluid. PANCREAS: Unremarkable. SPLEEN: Unremarkable. ADRENAL GLANDS: No lesion. Gastric diverticulum abuts the left adrenal gland, as before. KIDNEYS AND URETERS: Previously described complex lesion in the right renal midpole is not appreciated on the current exam in the setting of noncontrast technique. No evidence of hydronephrosis. No evidence of renal calculi.. BLADDER: Unremarkable. GASTROINTESTINAL TRACT: Small fluid-containing diverticulum arising posteriorly from the gastric fundus (series 3, image 79) measuring up to 2.6 cm, as before. No evidence of bowel obstruction. Sigmoid colonic stool. Normal-appearing appendix in the right lower quadrant. ABDOMINAL WALL: No significant hernia is appreciated. LYMPH NODES: Normal. VASCULAR: Scattered atherosclerotic calcifications.. PELVIC VISCERA: Previously seen pelvic free fluid has essentially resolved. OSSEOUS STRUCTURES: Unremarkable. IMPRESSION: No acute intra-abdominal or pelvic pathology. Previously seen bilateral pleural effusions and pelvic free fluid of since resolved. Hepatomegaly with diffuse hepatic steatosis, as before.
[2018-04-29 05:36] VITALS: BP 122/54
[2018-04-29] MEDS ORDERED: ZOFRAN ODT4 M1 SL (07:10)
== END 2018-04-29 07:13 ==
LOC: ERH 02:50
PROVIDERS: Pediatrics
DX: R10.84 Generalized abdominal pain (principal); R10.13 Epigastric pain; I10 Essential (primary) hypertension; K85.90 Acute pancreatitis without necrosis or infection, unspecified
CPT/HCPCS: 71045; 74176; 93005; 93010; 96374; 96375; J2405